=== PATIENT | female | born 1955 | race Caucasian/White ===

== ENCOUNTER → 2019-09-01 12:27 | Outpatient (CLI) | payer MEDICARE, SELFPAY ==
--- NOTE | ~2019-09-01 | XR_ITS ---
EXAMINATION: XR knee RT 3V DATE: 09/01/2019 12:59 INDICATION: Right knee pain. TECHNIQUE: 3 views of right knee were obtained. COMPARISON: Right knee radiographs 02/07/2014 FINDINGS: Bone alignment is normal. No fracture. There is mild tricompartmental osteoarthritis. No kn ee joint effusion. IMPRESSION: 1. Mild right knee osteoarthritis. Reviewed, dictated and finalized at location A. MACEUTICAL SPECIALTY REPRESENTATIVE
--- NOTE | ~2019-09-01 | XR_ITS ---
EXAMINATION: XR knee LT 3V DATE: 09/01/2019 12:59 INDICATION: Left knee pain. TECHNIQUE: 3 views of left knee were obtained. COMPARISON: None. FINDINGS: Bone alignment is normal. No fracture. There is mild tricompartmental osteoarthritis. There is a small knee joint effusion. IMPRESSION: 1. Mild left knee osteoarthritis. 2. Small left knee joint effusion. Reviewed, dictated and finalized at location A. NTRY OPERATIONS SPECIALIST
== END ==
PROVIDERS: PCP Family Medicine; Visit Provider Physician Assistant
DX: M17.0 Bilateral primary osteoarthritis of knee (principal); M25.462 Effusion, left knee
CPT/HCPCS: 73562

== ENCOUNTER → 2020-04-04 09:00 | Outpatient (CLI) | payer MEDICARE, SELFPAY ==
--- NOTE | ~2020-04-04 | MM_ITS ---
EXAMINATION: MM screening adria BI w cassy HISTORY: Screening mammogram TECHNIQUE: Craniocaudal and mediolateral oblique 3-D tomosynthesis images were obtained and synthetic 2-D images were generated. CAD analysis was submitted and interpreted. COMPARISON: No prior mammogram is available for comparison at this institution. BREAST PARENCHYMAL COMPOSITION: There are scattered areas of fibroglandular density. FINDINGS: There is no evidence of suspicious mass, calcification, or architectural distortion to sugg est malignancy in either breast. IMPRESSION: 1. No mammographic evidence of malignancy. 2. Recommend routine screening mammography in one year. BI-RADS Category 1: Negative Reviewed, dictated and finalized at location A.
--- NOTE | ~2020-04-04 | DEXA_ITS ---
Bone Density Report Name: Reena Mc Age: 64 Sex: Female Ethnicity: White Date of : 1955 Indication: postmenopausal; screening for osteoporosis; hysterectomy; Referring Provider: RADHA, ELLA Study: Bone densitometry was performed. Exam Date: April 04, 2020 Accession number: [id number] Bone Density: Region BMD T-score Z-score Classification AP Spine (L1-L4) 0.926 -1.1 0.5 Osteopenia Femoral Neck (Left) 0.735 -1.0 0.4 Normal Total Hip (Left) 0.943 0.0 1.1 Normal Femoral Neck (Right) 0.681 -1.5 -0.1 Osteopenia Total Hip (Right) 0.889 -0.4 0.6 Normal Total Hip Mean 0.916 -0.2 0.9 Normal World Health Organization criteria for BMD impression classify patients as: Normal (T-score at or above -1.0), Osteopenia (T-score between -1.0 and -2.5), or Osteoporosis (T-score at or below -2.5). 10-year Fracture Risk(1): Major Osteoporotic Fracture 8.4% Hip Fracture 0.8% Reported Risk Factors: [place] (), Neck BMD=0.681, BMI=28.4 (1) FRAX(R) Version 3.08. Fracture probability calculated for an untreated patient. Fracture probability may be lower if the patient has received treatment. Clinical Information Provided by Patient: Has the following medical conditions: Hysterectomy Patient maximum height was 66.5 Menopause Age: 44 No regular weight bearing exercise Does not regularly consume dairy products Drinks caffeinated beverages Onset of menses at age 14 Number of children 2 Impression: The patient has low bone mass, based on the Right Femoral Neck T-score. The patient has an estimated ten-year risk of hip fracture of 0.8% and an estimated ten-year risk of major fracture of 8.4%, based on the WHO FRAX algorithm. Discussion: BONE DENSITY IS LOW AT ONE OR MORE SKELETAL SITES. This patient's lowest T-score is low at one or more skeletal sites. It meets the World Health Organization's (WHO) criteria for ?low bone mass? (T-score between -1.0 and -2.5). The patient's 10-year risk of fracture as calculated by FRAX is less than the threshold where pharmacological therapy is recommended by the National Osteoporosis Foundation (NOF). However, all treatment decisions require clinical judgment and consideration of individual patient factors, including patient preferences, comorbidities, previous drug use, risk factors not captured in the FRAX model (e.g., frailty, falls, vitamin D deficiency, increased bone turnover, interval significant decline in bone density) and possible under or overestimation of fracture risk by FRAX. The patient should follow a healthful lifestyle (good nutrition with adequate calcium and vitamin D, and appropriate weight-bearing exercise). Follow-Up: Consider repeating this study in 2 to 3 years to reassess this patient's status, or sooner if there is some new
== END ==
PROVIDERS: PCP Family Medicine; Visit Provider Nurse Practitioner
DX: Z12.31 Encounter for screening mammogram for malignant neoplasm of breast (principal); Z78.0 Asymptomatic menopausal state; M85.89 Other specified disorders of bone density and structure, multiple sites
CPT/HCPCS: 77063; 77067; 77080

== ENCOUNTER 2020-10-30 13:33 | Outpatient (CLI) | payer MEDICARE, SELFPAY ==
--- NOTE | 2020-10-30 14:07 | ECHO_ITS ---
Patient Info Name: Reena Mc Age: 65 years : 1955 Gender: Female Ht: 66 in Wt: 180 lbs BSA: 1.97 m2 HR: 56 bpm BP: 149 / 87 mmHg Technical Quality: Good Exam Date: 10/30/2020 2:11 PM Exam Location: [facility] Patient Status: Outpatient Admit Date: 10/30/2020 Staff Ordering Physician: Layton Bush PA-C Dumbwaiter Operator: Adrien Gage RDCS, RT Attending Provider: Layton Bush PA-C Referring Physician: Rachelle FINE; Exam Type: CA echo doppler color flow Study Info Indications I48.0 - Paroxysmal atrial fibrillation Complete two-dimensional, color flow and Doppler transthoracic echocardiogram is performed. Strain analysis performed. Summary 1. Complete two-dimensional, color flow and Doppler transthoracic echocardiogram is performed. 2. Left ventricular chamber dimension is normal. 3. Left ventricular systolic function is normal, estimated at 60-65%. 4. The left ventricular diastolic function is normal. 5. E/e' 9 is minimally elevated. 6. Global longitudinal strain is normal at -17.7%. 7. Left atrial chamber dimension is mildly enlarged. 8. There is mild to moderate mitral valve regurgitation. 9. There is trace tricuspid valve regurgitation. 10. No pulmonary hypertension, estimated pulmonary arterial systolic pressure is 30 mmHg. 11. There is trace pulmonic regurgitation. Left Ventricle E/e' 9 is minimally elevated. Global longitudinal strain is normal at -17.7%. Left ventricular chamber dimension is normal. Left ventricular systolic function is normal, estimated at 60-65%. The left ventricular diastolic function is normal. Right Ventricle Right ventricular systolic function is normal based on normal TAPSE 2.2 cm. Right ventricular chamber dimension is not well visualized. Left Atria Left atrial chamber dimension is mildly enlarged. Right Atria Right atrial chamber dimension is normal. Aortic Valve The aortic valve is trileaflet. There is no aortic valve stenosis. There is no aortic valve regurgitation. Pulmonic Valve There is trace pulmonic regurgitation. Mitral Valve There is no mitral valve stenosis. There is mild to moderate mitral valve regurgitation. Tricuspid Valve There is trace tricuspid valve regurgitation. No pulmonary hypertension, estimated pulmonary arterial systolic pressure is 30 mmHg. Pericardium/Pleural There is no pericardial effusion. Inferior Vena Cava Normal inferior vena cava with >50% collapse upon inspiration consistent with normal right atrial pressure, 5 mmHg. Aorta The aortic root size at the sinus of Valsalva is normal. Left Ventricular Outflow Tract Name Value Normal LVOT 2D LVOT Diameter 2.1 cm LVOT Doppler LVOT Peak Gradient 1 mmHg LVOT Mean Gradient 1 mmHg LVOT VTI 15 cm LVOT VTI/AV VTI Ratio 0.7 LVOT Stroke Volume 54 ml LVOT CO 2.8 l/min LVOT CI 1.4 l/min/m2 Mitral Valve
== END 2020-10-30 13:34 | disposition home or self-care (01) ==
PROVIDERS: PCP Family Medicine; Visit Provider Physician Assistant
DX: I48.91 Unspecified atrial fibrillation (principal); I34.0 Nonrheumatic mitral (valve) insufficiency
CPT/HCPCS: 93306

== ENCOUNTER → 2021-04-07 09:57 | Outpatient (CLI) | payer MEDICARE, SELFPAY ==
--- NOTE | ~2021-04-07 | MM_ITS ---
EXAMINATION: MM screening adria BI w cassy HISTORY: Screening TECHNIQUE: Craniocaudal and mediolateral oblique 3-D tomosynthesis images were obtained and synthetic 2-D images were generated. CAD analysis was submitted and interpreted. COMPARISON: 04/04/2020 BREAST PARENCHYMAL COMPOSITION: There are scattered areas of fibroglandular density. FINDINGS: There is no evidence of suspicious mass, calcification, or architectural distortion to sugg est malignancy in either breast. There has been no suspicious interval change. IMPRESSION: 1. No mammographic evidence of malignancy. 2. Recommend routine screening mammography in one year. BI-RADS Category 1: Negative Reviewed, dictated and finalized at location A.
== END ==
PROVIDERS: PCP Family Medicine; Visit Provider Nurse Practitioner
DX: Z12.31 Encounter for screening mammogram for malignant neoplasm of breast (principal)
CPT/HCPCS: 77063; 77067

== ENCOUNTER 2022-02-12 10:58 | Observation (INO) | payer MEDICARE, SELFPAY ==
[2022-02-12] VITALS (23 sets, daily range): BP systolic 115–188; BP diastolic 42–111; PULSE 57–162; RESP 15–22; TEMP 36.4–36.8; O2SAT 94–99; BMI 30.8
--- NOTE | ~2022-02-12 | XR_ITS ---
EXAMINATION: XR chest 2V 02/12/2022 11:41 INDICATION: Chest pain PROCEDURE: 2 view chest COMPARISON: 02/07/2014 FINDINGS: The lungs are clear. The cardiomediastinal silhouette is within normal limits. There are no pleural effusions. There is no pneumothorax suspected. IMPRESSION: 1: NO ACUTE CARDIOPULMONARY DISEASE. Reviewed, dictated and finalized at location A.
--- NOTE | 2022-02-12 11:00 | ECG_ITS ---
Measurements Intervals [place] Rate: 143 P: ID: 0 QRS: 37 QRSD: 78 T: 32 QT: 267 QTc: 412 Interpretive Statements ATRIAL FIBRILLATION WITH RAPID VENTRICULAR RESPONSE NONSPECIFIC ST & T-WAVE ABNORMALITY ABNORMAL ECG NO PREVIOUS ECG AVAILABLE FOR COMPARISON Electronically Signed On 02-12-2022 15:21:37 CDT by Vignesh Quintanilla M.D.
[2022-02-12 11:27] LABS: Basophils Absolute Auto 0.1 K/mm3 (0.0-0.1); Basophils Percent Auto 0.8 % (0.2-1.2); Eosinophils Absolute Auto 0.2 K/mm3 (0-0.3); Eosinophils Percent Auto 2.3 % (0-4.4); Hematocrit 49.3 % (37.0-47.0); Hemoglobin 15.2 g/dL (12.0-15.0); Immature Granulocyte Absolute 0.03 K/mm3 (0.00-0.031); Immature Granulocyte Percent A 0.4 % (0-0.5); Lymphocytes Absolute Auto 1.96 K/mm3 (0.9-3.2); Lymphocytes Percent Auto 26.1 % (18.3-44.2); Mean Corpuscular HGB Conc 30.8 g/dl (32-36); Mean Corpuscular Hemoglobin 29.9 pg (26-34); Mean Corpuscular Volume 96.9 fl (80-100); Mean Platelet Volume 8.7 fl (7.4-10.4); Monocytes Absolute Auto 0.5 K/mm3 (0.1-0.6); Monocytes Percent Auto 7.1 % (2.6-8.5); Neutrophils Absolute Auto 4.8 K/mm3 (1.3-6.7); Neutrophils Percent Auto 63.3 % (45.5-73.1); Platelet Count Result 482 k/mm3 (150-375); Red Blood Count 5.09 M/mm3 (4.2-5.4); Red Cell Distribution Width 13.2 % (11.5-14.5); White Blood Count 7.5 K/mm3 (4.5-10.0)
--- NOTE | 2022-02-12 11:28 | ED.GENADULT ---
HPI - General Adult General Chief complaint: Arrhythmia/Palpitations Stated complaint: afib Time Seen by Provider: 02/12/22 11:12 Source: RN notes reviewed History of Present Illness HPI narrative: Patient presents emergency department from her PCPs office for atrial fibrillation. Patient states she gone to her PCP today for routine evaluation and was found to be in A. fib with RVR. States she does not feel like her heart is racing she denies any chest pain or shortness of breath. She states she has a history of intermittent atrial fibrillation is followed by Dr. Braxton but is not currently on any blood thinners. She denies any fevers or chills any other symptoms Related Data Home Medications Medication Instructions Recorded Confirmed aspirin 81 mg tablet,delayed 81 mg PO DAILY 09/01/19 02/12/22 release (Adult Low Dose Aspirin) Allergies Allergy/AdvReac Type Severity Reaction Status Date / Time duloxetine Allergy Unknown Unknown Verified 02/12/22 11:20 latex Allergy Unknown Skin Verified 02/12/22 11:20 Reaction nitrofurantoin Allergy Unknown Skin Verified 02/12/22 11:20 Reaction LATEX TAPE Allergy Unknown BROKE OUT Uncoded 02/12/22 11:20 WITH BLISTERS Review of Systems Review of Systems: Gen.: Denies fevers or chills ENT: Denies congestion Respiratory: Denies shortness of breath or cough CV: See HPI GI: Denies abdominal pain nausea, emesis or diarrhea Musculoskeletal: Denies back pain or muscle pain Neuro: Denies numbness, tingling, weakness or focal weakness Skin: Denies rash Except as documented, all other systems reviewed and negative [facility] Past Medical History Medical History (Updated 02/12/22 @ 12:16 by Gael Melara DO) Atrial fibrillation Family History Family History Mother Diabetes mellitus Hypertension Family history of elevated blood lipids Carcinoma of colon Colon polyp Father Diabetes mellitus Hypertension Family history of elevated blood lipids Social History Social History Smoking status: Never smoker Alcohol intake: never Substance use: never Exam Narrative: APPEARANCE: No acute distress, nontoxic, resting in bed EYES: EOMI HEENT: Normocephalic, atraumatic, OMM RESPIRATORY: No respiratory distress Clear to auscultation bilaterally with no rhonchi wheezing or rales. CARDIOVASCULAR: Irregular and tachycardic without murmurs rubs or gallops. ABDOMINAL: Soft, nontender, nondistended, no rebound or guarding MUSCULOSKELETAl: Moves all extremities. No clubbing, cyanosis or edema. NEURO: Awake and alert. Following commands, speech normal, no focal deficits SKIN:: Warm, dry. No rashes lesions or abrasions PSYCHIATRIC: Normal affect/mood, Course Course Emergency Course: Discussed with AGUILA Fu for Dr. Braxton agrees with consult agrees with plan for dose of Lovenox Discussed with Dr. Hood agrees with admission Discussed with patient and family results of workup and diagnosis. Discussed need for admission. Patient and family understand and agree to current treatment plan Vital Signs Vital signs: Vital Signs Temperature 97.5 F L 02/12/22 11:07 Pulse Rate 148 H 02/12/22 11:07 Respiratory Rate 22 H 02/12/22 11:07 Blood Pressure 155/111 H 02/12/22 11:07 Pulse Oximetry 99 02/12/22 11:07 Oxygen Delivery Room Air 02/12/22 11:07 Temperature 97.5 F L 02/12/22 11:07 Pulse Rate 162 H 02/12/22 11:58 Respiratory Rate 22 H 02/12/22 11:07 Blood Pressure 188/84 H 02/12/22 11:46 Pulse Oximetry 99 02/12/22 11:07 Oxygen Delivery Room Air 02/12/22 11:07 Medical Decision Making Vital Signs Vital Signs: Vital Signs Temperature 97.5 F L 02/12/22 11:07 Pulse Rate 148 H 02/12/22 11:07 Respiratory Rate 22 H 02/12/22 11:07 Blood Pressure 155/111 H 02/12/22 11:07 Pulse Oximetr
[2022-02-12 11:37] LABS: Prothrombin Time 12.3 Seconds (11.1-14.7)
[2022-02-12 11:38] LABS: Alanine Aminotransferase 22 U/L (6-35); Albumin Level 4.8 g/dL (3.5-5.1); Alkaline Phosphatase 114 U/L (38-126); Anion Gap 15 mmol/L (8-16); Aspartate Amino Transferase 34 U/L (14-36); Bilirubin,Total 0.7 mg/dL (0.2-1.3); Blood Urea Nitrogen 16 mg/dL (7-17); Calcium 9.9 mg/dL (8.4-10.2); Carbon Dioxide 23 mmol/L (22-30); Chloride 102 mmol/L (98-107); Estimated CRCL calculation 46 ml/min; Estimated Glomerular Filt Rate 45; Glucose 110 mg/dL (65-110); Lipase 123 U/L (23-300); Partial Thromboplastin Time 33.5 SECONDS (22.3-36.8); Potassium 4.3 mmol/L (3.4-5.0); Sodium 140 mmol/L (137-145)
[2022-02-12] MEDS: dilTIAZem 100 MG/100 ML 100 MG/100 ML BAG IV CONT (11:46)
[2022-02-12 11:49] LABS: Troponin I < 0.012 ng/mL (0.000-0.034)
--- NOTE | 2022-02-12 11:58 | PC.NURSE ---
Diltiazem titrated to 7.5mg/hr
[2022-02-12] MEDS: ENOXAPARIN 80 MG/0.8 ML SYRINGE SUB-Q (12:39)
--- NOTE | 2022-02-12 13:27 | PM.CNCAR ---
Assessment and Plan Assessment and plan (1) Atrial fibrillation with rapid ventricular response: Code(s): I48.91 - Unspecified atrial fibrillation <ROCKY Orellana - Last Filed: 02/12/22 15:09> Status: Acute <ROCKY Orellana - Last Filed: 02/12/22 15:09> Assessment and Plan: History paroxysmal atrial fibrillation diagnosed in 2019. Previously controlled with low-dose metoprolol. She was found to be in atrial fibrillation with rapid ventricular response this morning at a routine checkup visit with her primary care doctor. She had not been experiencing any overt symptoms until this morning when she felt some palpitations and was dizzy. However, does endorse increased fatigue over the past several months. Possible that she has been in atrial fibrillation for quite some time. She was placed a diltiazem drip in the emergency department. Currently not adequately rate controlled Will increase metoprolol to 25 mg q.8 hours in hopes of achieving rate control with this in being able to wean off of the diltiazem. CHADS2 Vasc score is 1 (female gender), systemic anticoagulation is not indicated at this time. She understands that as time goes on and additional risk factors are required (after she turned 67), systemic anticoagulation will be indicated. Can consider ASA. If unable to achieve adequate rate control can pursue LOULOU cardioversion Check TSH She is not compliant with her CPAP, encouraged better compliance with this. She had a stress echocardiogram in August of this year that showed a hyperdynamic LV, no segmental wall motion abnormalities, stress echo negative for inducible ischemia. Continue to monitor on telemetry <ROCKY Orellana - Last Filed: 02/12/22 15:09> (2) Mixed hyperlipidemia: Code(s): E78.2 - Mixed hyperlipidemia <ROCKY Orelalna - Last Filed: 02/12/22 15:09> Status: Acute <ROCKY Orellana - Last Filed: 02/12/22 15:09> Assessment and Plan: Continue statin. <ROCKY Orellana - Last Filed: 02/12/22 15:09> Additional Plan Attending Addendum: I have personally seen and examined this patient at bedside. I agree with the above documentation and plan of care as outlined. -patient is a very pleasant 66-year-old female with a past medical history significant for paroxysmal atrial fibrillation followed by Dr. Braxton as an outpatient maintain on aspirin and Toprol XL a noted this morning she was not feeling well felt lightheaded dizzy and with palpitations and presented to her PCP for routine scheduled visit. She was found to be in AFib with RVR for which she was referred to the emergency department. She was noted to quite rapid with heart rate up to the 160s and was started on diltiazem infusion. Her heart rate was better controlled but remained elevated and then converted to sinus rhythm around 330pm this afternoon. She feels much better and has no specific complaints at this time. She is currently sinus bradycardia and has been given oral metoprolol 25 mg. She denies recent illnesses, fevers or chills. No chest pain. She currently denies shortness of breath. No history of syncope. She is intolerant to CPAP for treatment of SEBAS unfortunately. She claims compliance with medications. She admits she has been under a great deal of stress but denies recent illnesses. Exam: Very pleasant female NAD, A&Ox3, nonfocal neuro exam No JVD Lungs CTA bilaterally Cardio bradycardic RRR, S1/S2 Abd soft, NT/ND, +BS Ext no edema, clubbing, or cyanosis Impression: Paroxysmal atrial fibrillation with rapid ventricular response SEBAS intolerant to CPAP unfortunately. Discussed increased likelihood of AFib recurrence with untreated SEBAS. CKD stage 3 stable, at baseline Mixed hyperlipidemia-continue atorvastatin 40 mg at bedtime GERD-continue PPI Plan of Care: Discontinue diltiazem infusion. Monitor heart rate on telemetry overnight to e
[2022-02-12 13:38] LABS: SARS-CoV-2 RNA PCR Negative
--- NOTE | 2022-02-12 14:43 | ADMGEN ---
This patient, Reena Mc, was admitted to IMU Room 212-01. Patient/family oriented to hospital policies and general routines including ID bracelet, bed and alarms, visiting hours, pain management, procedures, bathroom and other care routines, personal items, smoking policy, room service/diet, and visiting hours. Information on how to activate the Rapid Response Team has been discussed. Patient/Family are encouraged to report perceived risks to care and to ask questions if they do not understand what they are told or what they should do.
[2022-02-12] MEDS: METOPROLOL TARTRATE 25 MG TABLET PO ×2 (15:21→23:05)
--- NOTE | 2022-02-12 15:41 | ECG_ITS ---
Measurements Intervals [place] Rate: 57 P: 2 UT: 195 QRS: 22 QRSD: 88 T: 15 QT: 448 QTc: 439 Interpretive Statements SINUS BRADYCARDIA ST DEVIATION AND MODERATE T-WAVE ABNORMALITY, CONSIDER ANTERIOR ISCHEMIA ABNORMAL ECG COMPARED TO ECG 02/12/2022 11:02:32 SINUS BRADYCARDIA NOW PRESENT Electronically Signed On 02-12-2022 16:29:56 CDT by Vignesh Quintanilla M.D.
[2022-02-12 17:53] LABS: Troponin I < 0.012 ng/mL (0.000-0.034)
--- NOTE | 2022-02-12 18:45 | PM.IMHP ---
H&P: HPI History of Present Illness Date/Time: 02/12/22 18:45 Chief Complaint: 66-year-old female with past medical history significant for depression, anxiety, hypertension, as well as atrial fibrillation was being seen at her PCPs office and she was noted to be in AFib with RVR and referred to the ER. The patient was completely asymptomatic. She denied chest pain, shortness a breath, palpitations, nausea, vomiting or diarrhea. No fevers or chills. She states she was previously diagnosed with paroxysmal atrial fibrillation and sees Dr. Braxton from cardiology but has not been placed on blood thinners in the past. Patient states that she does have episodes intermittently where she feels very lightheaded and short of breath but the symptoms appeared to resolve when she rests. She has not experienced any of those episodes today. Yesterday, she had an episode where she felt extremely fatigued when she was trying to walk to the bathroom and felt like her heart was racing and she felt a bit short of breath but no chest pain. Symptoms resolved relatively quickly after she rested. In the ER, Cardiology was consulted and recommended therapeutic Lovenox dosing for anticoagulation. she is currently taking metoprolol, aspirin and Lipitor for her heart. She is also on Zoloft and amitriptyline for depression anxiety as well as tramadol for chronic pain and omeprazole for GERD. She was placed on a Cardizem drip in the ER. Cardiology consultation completed at this time, stated patient is not a candidate for systemic anticoagulation due to a chads Vasc score of 1. At this time, they recommend aspirin alone. They recommended compliance with her CPAP, checking a TSH and a possible LOULOU with cardioversion if patient continues to be unable to achieve rate control. They also discontinued the Cardizem drip In favor of increasing her home metoprolol dosing. The anticipate she can be discharged home tomorrow if the increased dose of metoprolol controls her symptoms back to baseline at which point she can follow-up with Dr. Braxton outpatient. She would be a candidate for systemic anticoagulation in about 6 months when she reaches her 67th birthday. Review of Systems Review of Systems: 12 point review of systems was assessed and was negative except as noted in the [facility] Past Medical History Medical History Atrial fibrillation Family History Family History Mother Diabetes mellitus Hypertension Family history of elevated blood lipids Carcinoma of colon Colon polyp Father Diabetes mellitus Hypertension Family history of elevated blood lipids Social History Social History Smoking status: Never smoker Alcohol intake: never Substance use: never Spiritual care concerns: No Meds Home Medications and Allergies Home Medications Medication Instructions Recorded Confirmed Type aspirin 81 mg tablet,delayed 81 mg PO HS 09/01/19 02/12/22 History release (Adult Low Dose Aspirin) tramadol 50 mg tablet 50 mg PO Q6H PRN pain #60 tabs 09/26/19 02/12/22 Rx amitriptyline 10 mg tablet 10 mg PO HS 02/12/22 02/12/22 History atorvastatin 40 mg tablet 40 mg PO HS 02/12/22 02/12/22 History ergocalciferol (vitamin D2) 1,250 1,250 mcg PO DIRECTED 02/12/22 02/12/22 History mcg (50,000 unit) capsule metoprolol succinate 25 mg 12.5 mg PO HS 02/12/22 02/12/22 History tablet,extended release 24 hr omeprazole 20 mg capsule,delayed 20 mg PO DAILY 02/12/22 02/12/22 History release sertraline 100 mg tablet 100 mg PO HS 02/12/22 02/12/22 History Allergies Allergy/AdvReac Type Severity Reaction Status Date / Time duloxetine Allergy Unknown Unknown Verified 02/12/22 15:07 latex Allergy Unknown Skin Verified 02/12/22 15:07 Reaction nitrofurantoin A
[2022-02-12 20:51] LABS: Troponin I < 0.012 ng/mL (0.000-0.034)
[2022-02-13] VITALS: PULSE 55
[2022-02-13 02:00] VITALS: PULSE 55
[2022-02-13 04:00] VITALS: BP 106/55; PULSE 50; PULSE 65; RESP 22; TEMP 36.7; O2SAT 95
[2022-02-13 06:00] VITALS: PULSE 57
[2022-02-13 06:03] VITALS: PULSE 54
[2022-02-13] MEDS: METOPROLOL TARTRATE 25 MG TABLET PO (06:03)
[2022-02-13 08:00] VITALS: BP 116/69; PULSE 100; RESP 14; TEMP 36.6; O2SAT 100
--- NOTE | 2022-02-13 10:42 | PM.PNCARD ---
Progress Note: A&P Assessment and Plan (1) Atrial fibrillation with rapid ventricular response: Code(s): I48.91 - Unspecified atrial fibrillation Status: Acute Assessment and Plan: History paroxysmal atrial fibrillation diagnosed in 2019. Previously controlled with low-dose metoprolol. She was found to be in atrial fibrillation with rapid ventricular response this morning at a routine checkup visit with her primary care doctor. She had not been experiencing any overt symptoms until this morning when she felt some palpitations and was dizzy. However, does endorse increased fatigue over the past several months. Possible that she has been in atrial fibrillation for quite some time. Converted to NSR yesterday afternoon Remains in NSR/sinus quinton this morning. Plan to discharge home on 25mg Toprol XL CHADS2 Vasc score is 1 (female gender), systemic anticoagulation is not indicated at this time. She understands that as time goes on and additional risk factors are required (after she turned 67), systemic anticoagulation will be indicated. On 81mg ASA She is not compliant with her CPAP, encouraged better compliance with this. She had a stress echocardiogram in August of this year that showed a hyperdynamic LV, no segmental wall motion abnormalities, stress echo negative for inducible ischemia. She has follow up with Dr. Braxton next week, she should keep this appointment. (2) Mixed hyperlipidemia: Code(s): E78.2 - Mixed hyperlipidemia Status: Acute Assessment and Plan: Continue statin. Subjective Date/time seen: 02/13/22 08:42 Cardiology follow up for Afib Feels good this morning. In sinus rhythm/sinus quinton on the monitor. Did have one brief run of AF overnight. She is without complaint this morning. Wants to go home. Review of Systems Constitutional: Constitutional: Denies chills, Denies fever(s), Denies headache(s) and Denies malaise Eyes: Eyes: Denies change in vision ENT: Reports Normal hearing present, Denies dizziness, Denies headache(s) and Denies hearing loss Cardiovascular: Cardiovascular: Denies chest pain, Denies chest pain at rest, Denies chest pain with activity, Denies syncope, Reports pedal edema, Denies palpitations, Denies dyspnea and Denies dyspnea on exertion Respiratory: Respiratory: Denies cough, Denies dyspnea, Denies dyspnea on exertion and Denies wheezing Gastrointestinal: Gastrointestinal: Denies abdominal pain, Denies constipation and Reports diarrhea Genitourinary: Genitourinary: Denies hematuria and Denies dysuria Musculoskeletal: Musculoskeletal: Denies myalgias, Denies arthralgias and Denies muscle cramps Integumentary/Breasts: Skin/Breast: Denies wounds Neurologic: Reports Normal hearing present, Denies confusion, Denies dizziness, Denies syncope and Denies headache(s) Psychiatric: Psychiatric: Denies anxiety, Denies confusion and Reports depression Endocrine: Endocrine: Denies cold intolerance, Denies flushing, Denies heat intolerance and Denies palpitations Hematologic/Lymphatic: Hematologic/Lymphatic: Denies easy bleeding and Denies easy bruising Allergic/Immunologic: Allergic/Immunologic: Denies wheezing Exam Const: General: comfortable, no acute distress, alert and awake; No confusion Orientation/consciousness: patient oriented x3 and No confusion HENMT: Head: normal to inspection Eyes: General: appearance normal, both eyes and all related structures Pupils: Equal, round and reactive pupils present Neck: Neck: normal visual inspection, supple and no JVD Carotids: normal carotid upstroke Resp: Effort & Inspection: normal respiratory effort Auscultation: clear to auscultation bilaterally Cardio: Rate: regular rate and bradycardic Rhythm: regular rhythm Heart sounds: S1 normal heart sound present, S2 normal heart sound present and no murmurs GI: Auscultation: normal bowel sounds Skin: General skin exam: normal color Neuro:
--- NOTE | 2022-02-17 19:18 | PM.DS ---
DS: Admitting Diagnosis Discharge Date 02/13/22 Admitting Diagnosis AFib with RVR DS: Discharge Diagnosis Discharge Diagnosis (1) Atrial fibrillation with rapid ventricular response: Code(s): I48.91 - Unspecified atrial fibrillation Status: Acute Assessment and Plan: continue aspirin, statin, metoprolol at higher dose, reassess tomorrow per Cardiology recommendations (2) Mixed hyperlipidemia: Code(s): E78.2 - Mixed hyperlipidemia Status: Acute Assessment and Plan: Continue statin. (3) Gastro-esophageal reflux disease without esophagitis: Code(s): K21.9 - Gastro-esophageal reflux disease without esophagitis Status: Acute Assessment and Plan: continue PPI (4) Irritable bowel syndrome with diarrhea: Code(s): K58.0 - Irritable bowel syndrome with diarrhea Status: Acute Assessment and Plan: stable (5) Major depressive disorder, recurrent, moderate: Code(s): F33.1 - Major depressive disorder, recurrent, moderate Status: Acute Assessment and Plan: continue Zoloft (6) Obstructive sleep apnea: Code(s): G47.33 - Obstructive sleep apnea (adult) (pediatric) Status: Acute Assessment and Plan: noncompliant with CPAP at home, recommended compliance to prevent further episodes of AFib Plan Full Code DVT prophylaxis with Lovenox DS: Summary Hospital Course Hospital Course: 66-year-old female with past medical history significant for? depression, anxiety, hypertension, as well as atrial fibrillation was being seen at her PCPs office and she was noted to be in AFib with RVR and referred to the ER.? The patient was completely asymptomatic.? She denied chest pain, shortness a breath, palpitations, nausea, vomiting or diarrhea.? No fevers or chills.? She states she was previously diagnosed with paroxysmal atrial fibrillation and sees Dr. Braxton from cardiology but has not been placed on blood thinners in the past.? Patient states that she does have episodes intermittently where she feels very lightheaded and short of breath but the symptoms appeared to resolve when she rests.? She has not experienced any of those episodes today.? Yesterday, she had an episode where she felt extremely fatigued when she was trying to walk to the bathroom and felt like her heart was racing and she felt a bit short of breath but no chest pain.? Symptoms resolved relatively quickly after she rested. In the ER, Cardiology was consulted and recommended therapeutic Lovenox dosing for anticoagulation.? she is currently taking metoprolol, aspirin and Lipitor for her heart.? She is also on Zoloft and amitriptyline for depression anxiety as well as tramadol for chronic pain and omeprazole for GERD. She was placed on a Cardizem drip in the ER.? Cardiology consultation completed at this time, stated patient is not a candidate for systemic anticoagulation due to a chads Vasc score of 1.? At this time, they recommend aspirin alone.? They recommended compliance with her CPAP, checking a TSH and a possible LOULOU with cardioversion if patient continues to be unable to achieve rate control. ? They also discontinued the Cardizem drip ? In favor of increasing her home metoprolol dosing.? The anticipate she can be discharged home tomorrow if the increased dose of metoprolol controls her symptoms back to baseline at which point she can follow-up with Dr. Braxton outpatient.? She would be a candidate for systemic anticoagulation in about 6 months when she reaches her 67th birthday. Patient converted to normal sinus rhythm and remained this way. Therefore she was discharged home on Toprol-XL 25 mg with close outpatient follow-up by Cardiology. Time Spent with Patient Time attestation: Total time spent providing and/or coordinating discharge services: Exam Narrative: General: No acute distress, alert and oriented per baseline HEENT: Atraumatic, normocephalic, mucous
== END 2022-02-13 12:47 | disposition home or self-care (01) ==
LOC: ANHED 12:16 → ANHIMU 02-13 10:44
PROVIDERS: Nurse Practitioner; Admitting Provider Family Medicine; Emergency Provider Emergency Medicine; PCP Family Medicine; Visit Provider Student in an Organized Health Care Education/Training Program
DX: I48.0 Paroxysmal atrial fibrillation (principal); N28.9 Disorder of kidney and ureter, unspecified; Z79.891 Long term (current) use of opiate analgesic; E78.2 Mixed hyperlipidemia; K21.9 Gastro-esophageal reflux disease without esophagitis; K58.0 Irritable bowel syndrome with diarrhea; F33.1 Major depressive disorder, recurrent, moderate; Z99.89 Dependence on other enabling machines and devices; Z91.19 Patient's noncompliance with other medical treatment and regimen; F41.9 Anxiety disorder, unspecified; I13.10 Hypertensive heart and chronic kidney disease without heart failure, with stage 1 through stage 4 chronic kidney disease, or unspecified chronic kidney disease; N18.30 Chronic kidney disease, stage 3 unspecified; R94.31 Abnormal electrocardiogram [ECG] [EKG]; Z20.822 Contact with and (suspected) exposure to COVID-19; Z82.49 Family history of ischemic heart disease and other diseases of the circulatory system; Z79.82 Long term (current) use of aspirin; Z79.899 Other long term (current) drug therapy
CPT/HCPCS: 36415; 71046; 80053; 83690; 84443; 84484; 85025; 85610; 85730; 93005; 96372; 96374; 99285; A9270; C9803; G0378; J1650; U0003; U0005

== ENCOUNTER 2022-03-13 11:43 | Inpatient (IN) | payer MEDICARE, SELFPAY ==
[2022-03-13] VITALS (56 sets, daily range): BP systolic 92–128; BP diastolic 60–90; PULSE 45–148; RESP 12–24; TEMP 36.6–36.9; O2SAT 89–98; BMI 31.8
--- NOTE | ~2022-03-13 | CT_ITS ---
EXAMINATION: CT brain wo con DATE: 03/13/2022 13:01 INDICATION: Fall. Head injury, loss of consciousness. Patient on anticoagulant therapy. TECHNIQUE: Computed tomography (CT) of the head was performed without intravenous contrast. The mA wa s adjusted according to patient size. Iterative reconstruction technique was employed. Exam dose: 60 5.33 mGy-cm total exam DLP. COMPARISON: 12/29/2017 CT brain FINDINGS: No intracranial mass lesion or hemorrhage or cerebrovascular accident is detected. No midli ne shift or mass effect. Bilateral carotid siphon internal carotid artery calcifications. No subdural or epidural hematoma. No fracture or bone destruction of the cranial vault. The mastoid air cells and included paranasal si nuses are well aerated. IMPRESSION: Cerebral atherosclerosis No acute intracranial finding or skull fracture Reviewed, dictated and finalized at [facility]. Reviewed, dictated and finalized at [facility].
--- NOTE | ~2022-03-13 | XR_ITS ---
XR chest 2V DATE: 03/13/2022 13:06 INDICATION: Atrial fibrillation with rapid ventricular response TECHNIQUE: AP and lateral views COMPARISON: 02/12/2022 PA and lateral chest FINDINGS: Normal heart size. No hilar or mediastinal enlargement. No pulmonary infiltrate or consolid ation, pleural effusion or pulmonary vascular congestion or pneumothorax. Levoscoliosis and degenerative spurring of the thoracic spine. IMPRESSION: No active cardiopulmonary disease Reviewed, dictated and finalized at location [facility].
--- NOTE | 2022-03-13 11:50 | ECG_ITS ---
Measurements Intervals [place] Rate: 129 P: VT: 0 QRS: 37 QRSD: 86 T: -4 QT: 333 QTc: 488 Interpretive Statements ATRIAL FIBRILLATION WITH RAPID VENTRICULAR RESPONSE ST-T WAVE ABNORMALITY IN SEPTAL LEADS- CONSIDER ISCHEMIA ABNORMAL ECG COMPARED TO ECG 02/12/2022 15:49:50 ATRIAL FIBRILLATION NOW PRESENT Electronically Signed On 03-13-2022 11:59:27 CDT by Davide Moura D.O.
[2022-03-13 12:35] LABS: Basophils Absolute Auto 0.1 K/mm3 (0.0-0.1); Basophils Percent Auto 0.8 % (0.2-1.2); Eosinophils Absolute Auto 0.2 K/mm3 (0-0.3); Eosinophils Percent Auto 3.2 % (0-4.4); Hematocrit 41.8 % (37.0-47.0); Hemoglobin 13.4 g/dL (12.0-15.0); Immature Granulocyte Absolute 0.02 K/mm3 (0.00-0.031); Immature Granulocyte Percent A 0.3 % (0-0.5); Lymphocytes Absolute Auto 1.61 K/mm3 (0.9-3.2); Lymphocytes Percent Auto 26.7 % (18.3-44.2); Mean Corpuscular HGB Conc 32.1 g/dl (32-36); Mean Corpuscular Hemoglobin 30.5 pg (26-34); Mean Platelet Volume 8.8 fl (7.4-10.4); Monocytes Absolute Auto 0.5 K/mm3 (0.1-0.6); Monocytes Percent Auto 8.6 % (2.6-8.5); Neutrophils Absolute Auto 3.6 K/mm3 (1.3-6.7); Neutrophils Percent Auto 60.4 % (45.5-73.1); Platelet Count Result 380 k/mm3 (150-375); Red Cell Distribution Width 13.2 % (11.5-14.5)
[2022-03-13] MEDS: dilTIAZem HCl INJ 25 MG/5 ML VIAL 10 MG IV PUSH ×2 (12:35→14:23)
--- NOTE | 2022-03-13 12:36 | ED.DIZZY ---
HPI - Dizziness General Chief Complaint: Syncope <STEPHANIE Lira Last Filed: 03/17/22 09:00> Stated Complaint: syncopal episode, hit head <STEPHANIE Lira Last Filed: 03/17/22 09:00> Time Seen by Provider: 03/13/22 12:20 <STEPHANIE Lira Last Filed: 03/17/22 09:00> History of Present Illness HPI Narrative: Patient is a 66-year-old female here for evaluation of dizziness. Patient states that the dizziness is intermittent in nature,, states she turns her head. She had a dizzy spell in her kitchen earlier today that she believes led her to fall and hit her head against the ground. She had a period of unconsciousness for about a minute, but then she came to. She is on Eliquis for atrial fibrillation. She denies any chest pain, shortness of breath, fevers or chills, nausea, vomiting, abdominal pain. Of note, patient has been in atrial fibrillation with rapid ventricular response frequently, she was admitted to the hospital last month on a diltiazem drip, started on Eliquis at that time. <STEPHANIE Lira Last Filed: 03/17/22 09:00> Related Data Home Medications: Home Medications Medication Instructions Recorded Confirmed aspirin 81 mg tablet,delayed 81 mg PO HS 09/01/19 03/18/22 release (Adult Low Dose Aspirin) amitriptyline 10 mg tablet 10 mg PO HS 02/12/22 03/18/22 atorvastatin 40 mg tablet 40 mg PO HS 02/12/22 03/18/22 ergocalciferol (vitamin D2) 1,250 1,250 mcg PO DIRECTED 02/12/22 03/18/22 mcg (50,000 unit) capsule omeprazole 20 mg capsule,delayed 20 mg PO DAILY 02/12/22 03/18/22 release sertraline 100 mg tablet 100 mg PO HS 02/12/22 03/18/22 apixaban 5 mg tablet (Eliquis) 5 mg PO Q12H 03/13/22 03/18/22 <STEPHANIE Lira Last Filed: 03/17/22 09:00> Allergies/Adverse Reactions: Allergies Allergy/AdvReac Type Severity Reaction Status Date / Time duloxetine Allergy Unknown Unknown Verified 03/18/22 09:53 latex Allergy Unknown Skin Verified 03/18/22 09:53 Reaction nitrofurantoin Allergy Unknown Skin Verified 03/18/22 09:53 Reaction LATEX TAPE Allergy Unknown BROKE OUT Uncoded 03/18/22 09:53 WITH BLISTERS <Glo Pryor PA-C - Last Filed: 03/17/22 09:00> Review of Systems Review of Systems: Gen: Denies fevers or chills Eyes: Denies eye pain or visual change ENT: Denies congestion Respiratory: Denies shortness of breath or cough CV: Denies chest pain or palpitations GI: Denies abdominal pain nausea, emesis or diarrhea : denies burning, urgency, frequency or hematuria Musculoskeletal: Denies back pain or muscle pain Neuro: Reports dizziness. Denies numbness, tingling, weakness or focal weakness Skin: Denies rash Except as documented, all other systems reviewed and negative <Glo Pryor PA-C - Last Filed: 03/17/22 09:00> [facility] Past Medical History Medical History: Medical History Adjustment disorder with anxiety Atrial fibrillation Chronic bilateral low back pain without sciatica DVT of leg (deep venous thrombosis) Gastro-esophageal reflux disease without esophagitis Hyperlipidemia LDL goal <130 Major depressive disorder, recurrent, moderate <Glo Pryor PA-C - Last Filed: 03/17/22 09:00> Surgical History Surgical History: Surgical History H/O: hysterectomy History of back surgery History of bladder surgery <STEPHANIE Lira Last Filed: 03/17/22 09:00> Family History Family History: Family History Mother Diabetes mellitus Hypertension Family history of elevated blood lipids Carcinoma of colon Colon polyp Father Diabetes mellitus Hypertension Family history of elevated blood lipids <CHRISTIANO Lira-
[2022-03-13 12:47] LABS: Alanine Aminotransferase 16 U/L (6-35); Albumin Level 4.1 g/dL (3.5-5.1); Alkaline Phosphatase 91 U/L (38-126); Anion Gap 12 mmol/L (8-16); Aspartate Amino Transferase 31 U/L (14-36); Bilirubin,Total 0.5 mg/dL (0.2-1.3); Blood Urea Nitrogen 20 mg/dL (7-17); Calcium 9.1 mg/dL (8.4-10.2); Carbon Dioxide 29 mmol/L (22-30); Chloride 102 mmol/L (98-107); Estimated CRCL calculation 46 ml/min; Estimated Glomerular Filt Rate 45; Glucose 88 mg/dL (65-110); Potassium 4.8 mmol/L (3.4-5.0); Sodium 143 mmol/L (137-145)
[2022-03-13 13:02] LABS: INR 1.3; Prothrombin Time 16.1 Seconds (11.1-14.7)
[2022-03-13 13:03] LABS: Partial Thromboplastin Time 47.1 SECONDS (22.3-36.8)
[2022-03-13 13:35] LABS: Troponin I < 0.012 ng/mL (0.000-0.034)
[2022-03-13] MEDS: METOPROLOL TARTRATE 50 MG TAB PO (15:30)
--- NOTE | 2022-03-13 15:39 | PM.IMHP ---
H&P: HPI History of Present Illness Date/Time: 03/13/22 15:39 Chief Complaint: Syncopal event with loss of consciousness Narrative: this is a 66-year-old female patient who has a history of atrial fibrillation. The patient came to the emergency room to be evaluated for syncopal event. The patient stated that she was in the kitchen reaching for the refrigerator when her ask your what was wrong and if she felt all right. The the stated that her eyes rolled in the back of her head she fell backwards hitting her head her eyes were open but she was not responsive for approximately 30 seconds. She is currently on Eliquis for the atrial fibrillation. She has been on metoprolol. the patient stated that she has been taking her medications as prescribed. the patient was found to be in AFib with RVR today. The patient was given IV Cardizem and then p.o. metoprolol . It was reported that the patient had been on sotalol but her heart rate got too low and then was taken to lower dose of sotalol. Head CT was read as cerebral atherosclerosis no acute intracranial finding or skull fracture. Chest x-ray was read as no acute cardiopulmonary disease. Creatinine is 1.2 which is her baseline. Cardiology has been consulted. The patient is being admitted to inpatient status on 03/13/2022. ( The patient was just discharged from here on 02/17/2022 After being on a Cardizem drip). Review of Systems Review of Systems: see HPI All systems reviewed & are unremarkable except as noted in HPI and below Constitutional: Constitutional: Reports as per HPI and Reports no additional constitutional complaints Eyes: Eyes: Reports as per HPI and Reports no additional eye complaints ENT: Reports system reviewed and no additional complaints, except as documented and Reports Normal hearing present Cardiovascular: Cardiovascular: Reports no additional cardiovascular complaints Respiratory: Respiratory: Reports no additional respiratory complaints and Reports no additional respiratory complaints Gastrointestinal: Gastrointestinal: Reports as per HPI and Reports no additional gastrointestinal complaints Musculoskeletal: Musculoskeletal: Reports no additional musculoskeletal complaints Integumentary/Breasts: Skin/Breast: Reports system reviewed and no additional complaints, except as docu and Reports as per HPI Neurologic: Reports system reviewed and no additional complaints, except as documented, Reports as per HPI and Reports Normal hearing present Psychiatric: Psychiatric: Reports no additional psychiatric complaints and Reports as per HPI Endocrine: Endocrine: Reports no additional endocrine complaints Hematologic/Lymphatic: Hematologic/Lymphatic: Reports no additional hematologic/lymphatic complaints Allergic/Immunologic: Allergic/Immunologic: Reports no additional allergic/immunologic complaints [facility] Past Medical History Medical History Adjustment disorder with anxiety Atrial fibrillation Chronic bilateral low back pain without sciatica DVT of leg (deep venous thrombosis) Gastro-esophageal reflux disease without esophagitis Hyperlipidemia LDL goal <130 Major depressive disorder, recurrent, moderate Surgical History Surgical History H/O: hysterectomy History of back surgery History of bladder surgery Family History Family History Mother Diabetes mellitus Hypertension Family history of elevated blood lipids Carcinoma of colon Colon polyp Father Diabetes mellitus Hypertension Family history of elevated blood lipids Social History Social History (Updated 03/13/22 @ 16:52 by Maria Del Rosario Santos NP) Social History: 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 She never sm
--- NOTE | 2022-03-13 16:16 | PC.NURSE ---
Pharmacy contacted for Cheryle dempsey. Not currently stocked in [facility].
[2022-03-13] MEDS: dilTIAZem 100 MG/100 ML 100 MG/100 ML BAG IV CONT (16:41)
--- NOTE | 2022-03-13 16:57 | PC.NURSE ---
Per verbal order from CHRISTIANO Cody Cardizem increased to 15 mg/hr.
--- NOTE | 2022-03-13 18:10 | ADMGEN ---
This patient, Reena Mc, was admitted to IMU Room 201-01 at 1804 on 03/13/2022. Patient/family oriented to hospital policies and general routines including ID bracelet, bed and alarms, visiting hours, pain management, procedures, bathroom and other care routines, personal items, smoking policy, room service/diet, and visiting hours. Information on how to activate the Rapid Response Team has been discussed. Patient/Family are encouraged to report perceived risks to care and to ask questions if they do not understand what they are told or what they should do.
--- NOTE | 2022-03-13 18:49 | PC.NURSE ---
Patient's heart rate dropped to 45bpm. Diltiazem gtt paused. Maria Del Rosario Santos NP notified via voicemail of medication being paused. Will wait for new orders and continue to monitor the patient.
[2022-03-13] MEDS: SODIUM CHLORIDE 0.9% IV 1,000 ML 999 ML IV CONT (19:05)
[2022-03-13] MEDS: SERTRALINE HCL 50 MG TABLET 100 MG PO (20:11)
[2022-03-13] MEDS: APIXABAN 5 MG TABLET PO (20:11)
[2022-03-13] MEDS: ATORVASTATIN 40 MG TABLET PO (20:12)
[2022-03-13] MEDS: ASPIRIN 81 MG ENTERIC TABLET PO (20:12)
[2022-03-13] MEDS: AMITRIPTYLINE HCL 10 MG TABLET PO (20:13)
[2022-03-14] VITALS (22 sets, daily range): BP systolic 100–113; BP diastolic 56–58; PULSE 52–96; RESP 14–20; TEMP 36.1–36.7; O2SAT 96–98
--- NOTE | 2022-03-14 03:26 | ECG_ITS ---
Measurements Intervals [place] Rate: 63 P: 18 HI: 230 QRS: 38 QRSD: 86 T: 24 QT: 474 QTc: 489 Interpretive Statements SINUS RHYTHM WITH FIRST DEGREE AV BLOCK INCOMPLETE RIGHT BUNDLE BRANCH BLOCK ST-T WAVE ABNORMALITY IN ANTEROSEPTAL LEADS- CONSIDER ISCHEMIA BASELINE ARTIFACT- I, III, AVL ABNORMAL ECG COMPARED TO ECG 03/13/2022 11:57:21 SINUS RHYTHM NOW PRESENT FIRST DEGREE AV BLOCK NOW PRESENT Electronically Signed On 03-14-2022 7:31:23 CDT by Davide Moura D.O.
[2022-03-14 04:22] LABS: Basophils Absolute Auto 0.1 K/mm3 (0.0-0.1); Basophils Percent Auto 0.8 % (0.2-1.2); Eosinophils Absolute Auto 0.2 K/mm3 (0-0.3); Eosinophils Percent Auto 3.4 % (0-4.4); Hematocrit 40.1 % (37.0-47.0); Hemoglobin 12.7 g/dL (12.0-15.0); Immature Granulocyte Absolute 0.02 K/mm3 (0.00-0.031); Immature Granulocyte Percent A 0.3 % (0-0.5); Lymphocytes Absolute Auto 2.23 K/mm3 (0.9-3.2); Lymphocytes Percent Auto 36.4 % (18.3-44.2); Mean Corpuscular HGB Conc 31.7 g/dl (32-36); Mean Corpuscular Hemoglobin 30.4 pg (26-34); Mean Corpuscular Volume 95.9 fl (80-100); Mean Platelet Volume 8.7 fl (7.4-10.4); Monocytes Absolute Auto 0.5 K/mm3 (0.1-0.6); Neutrophils Absolute Auto 3.1 K/mm3 (1.3-6.7); Neutrophils Percent Auto 51.1 % (45.5-73.1); Platelet Count Result 345 k/mm3 (150-375); Red Blood Count 4.18 M/mm3 (4.2-5.4); Red Cell Distribution Width 13.3 % (11.5-14.5); White Blood Count 6.1 K/mm3 (4.5-10.0)
[2022-03-14 04:34] LABS: Creatine Kinase 215 U/L (30-135); Magnesium 1.9 mg/dL (1.6-2.3); Phosphorus 3.5 mg/dL (2.5-4.5)
--- NOTE | 2022-03-14 07:40 | PM.IMPN ---
Progress Note: A&P Assessment and Plan (1) Atrial fibrillation with rapid ventricular response: Code(s): I48.91 - Unspecified atrial fibrillation Status: Acute Assessment and Plan: Cardiology recommending flecainide in observation (2) Obstructive sleep apnea: Code(s): G47.33 - Obstructive sleep apnea (adult) (pediatric) Status: Acute Assessment and Plan: Continue BiPAP (3) Hyperlipidemia LDL goal <130: Code(s): E78.5 - Hyperlipidemia, unspecified Status: Acute Assessment and Plan: Continue Lipitor (4) Gastro-esophageal reflux disease without esophagitis: Code(s): K21.9 - Gastro-esophageal reflux disease without esophagitis Status: Acute Assessment and Plan: Continue PPI (5) Major depressive disorder, recurrent, moderate: Code(s): F33.1 - Major depressive disorder, recurrent, moderate Status: Acute Assessment and Plan: Continue Zoloft and amitriptyline Plan DVT prophylaxis with Eliquis GI prophylaxis not indicated Code status full code Subjective Date/time seen: 03/14/22 07:40 Interval history: No recurrent episodes of syncope. She did have an episode where she had a pause in her heart rate the meter feel uncomfortable. It quickly resolved on its own. No overnight events noted. No chest pain or shortness of breath. No nausea, vomiting or diarrhea. No fevers or chills. Review of Systems Review of Systems: 12 point review of systems was assessed and was negative except as noted in the HPI Exam Narrative: General: No acute distress, alert and oriented per baseline HEENT: Atraumatic, normocephalic, mucous membranes moist CV: Irregularly irregular, S1, S2 Lungs: Clear to auscultation bilaterally, no rales or crackles noted, no wheezes, good air entry Abdomen: Soft, nontender, nondistended Extremities: Normal to inspection Skin: No rashes noted, no lesions or wounds seen Psych: Euthymic, normal affect Objective Data Vital Signs Vital Signs: Vital Signs - 24 hr 03/13/22 11:45 03/13/22 12:39 03/13/22 12:45 Temperature 97.8 F Pulse Rate 98 68 97 Respiratory Rate 16 20 24 H Blood Pressure 117/78 Pulse Oximetry 98 94 92 Oxygen Delivery Room Air 03/13/22 12:46 03/13/22 12:47 03/13/22 12:56 Temperature Pulse Rate 91 76 79 Respiratory Rate 19 12 Blood Pressure 109/74 Pulse Oximetry 95 93 Oxygen Delivery 03/13/22 12:56 03/13/22 13:06 03/13/22 13:07 Temperature Pulse Rate 88 88 Respiratory Rate 18 Blood Pressure 118/80 Pulse Oximetry 93 94 Oxygen Delivery Room Air 03/13/22 13:15 03/13/22 13:16 03/13/22 13:17 Temperature Pulse Rate 94 101 H 90 Respiratory Rate 21 H 14 17 Blood Pressure 118/79 Pulse Oximetry 95 94 Oxygen Delivery 03/13/22 13:30 03/13/22 13:31 03/13/22 13:32 Temperature Pulse Rate 87 88 107 H Respiratory Rate 20 21 H 17 Blood Pressure 112/78 Pulse Oximetry 94 93 95 Oxygen Delivery 03/13/22 13:45 03/13/22 13:46 03/13/22 14:00 Temperature Pulse Rate 112 H 97 122 H Respiratory Rate 22 H 19 18 Blood Pressure 105/67 Pulse Oximetry 90 94 Oxygen Delivery 03/13/22 14:01 03/13/22 14:15 03/13/22 14:16 Temperature Pulse Rate 119 H 139 H 125 H Respiratory Rate 18 19 20 Blood Pressure 124/66 128/79 Pulse Oximetry 93 92 93 Oxygen Delivery 03/13/22 14:30 03/13/22 14:31 03/13/22 14:32 Temperature Pulse Rate 80 81 112 H Respiratory Rate 18 19 14 Blood Pressure 93/63 L Pulse Oximetry 89 L 92 93 Oxygen Delivery 03/13/22 14:45 03/13/22 14:46 03/13/22 15:00 Temperature Pulse Rate 103 H 83 84 Respiratory Rate 20 14 20 Blood Pressure 108/65 Pulse Oximetry 96 93 Oxygen Delivery 03/13/22 15:01 03/13/22 15:15 03/13/22 15:16 Temperature Pulse Rate 98 82 108 H Respiratory Rate 17 18 20 Blood Pressure 112/72 117/79 Pulse Oximetry 94 93 93 Oxygen Delivery
--- NOTE | 2022-03-14 08:25 | PM.CNCAR ---
Assessment and Plan Assessment and plan (1) Atrial fibrillation with rapid ventricular response: Code(s): I48.91 - Unspecified atrial fibrillation Status: Acute (2) Syncope and collapse: Code(s): R55 - Syncope and collapse Status: Acute Plan This is a 66-year-old lady with treated sleep apnea who has paroxysmal atrial fibrillation and no significant structural abnormalities when she had an echocardiogram done. We have been treating her with sotalol starting earlier this past summer. She now presents with a syncopal episode that occurred at home. On telemetry we are seeing significant conversion pauses when she reverts from atrial flutter to sinus rhythm. This time I will discontinue the sotalol as mentioned above we will start a modest dose of flecainide in hopes of maintaining sinus rhythm so that she does not have conversion pauses. If this type of situation continues to be problematic then a pacemaker implantation would possibly be necessary. If alternative medical antiarrhythmic therapy can maintain sinus rhythm this may not be required. We will keep her in the hospital at least a couple of days as we start alternative antiarrhythmic agent cMkay Braxton MD [facility] History of Present Illness History of Present Illness Consult date/time: 03/14/22 08:25 Consult reason: atrial fibrillation Reason For Visit: Afib RVR Narrative: This is a 66-year-old woman with a history of paroxysmal atrial fib who I am seeing after admission yesterday following a syncopal episode in her home. The patient has a history of paroxysmal atrial fib and I see her in the office in follow-up. She does not have any evidence of structural cardiac abnormalities by echo that has been performed and she does carry the diagnosis of sleep apnea for which she is compliant with her CPAP. She had been treated with simple beta-angela therapy and because of low chads score had not been anticoagulated for the most part. She did have a recurrence of her atrial fibrillation earlier in the summer last month and was hospitalized here at [facility]. We transitioned her from metoprolol to sotalol and started her on systemic anticoagulation with apixaban at that time. She reverted back to sinus rhythm and was seen in the office. Because of a longer QT interval I reduced her sotalol dosage to 40 mg twice daily of within the last several weeks. She has otherwise done fairly well. She came to the hospital yesterday after experiencing a syncopal episode in her home. She was not having any sense of palpitations shortness of breath or chest pain prior to this. She was walking in the hallway at her home from 1 room to another and she abruptly felt unwell her vision went dark and the next thing she remembers is waking up on the floor with her over her. She was brought to this hospital's emergency room in their private vehicle. Her wanted to call an ambulance but she resisted that. She was seen in the emergency room and admitted. In the emergency room she was in atrial fibrillation with rapid ventricular response heart rate 140-150. Of course she was placed on intravenous diltiazem which did control her heart rate. She was also given a dose of oral metoprolol. Early this morning she converted to sinus rhythm. The telemetry strip actually looked suspicious for atrial flutter at that time and when she converted she had a 5.6 sec asystolic pause. Her diltiazem was stopped at that time and I was informed this this morning at which time I instructed the staff to discontinue her sotalol. She has not received any dosage of that yet today. She is currently in sinus bradycardia with heart rates in the 50s and is asymptomatic. Review of Systems Constitutional: Constitutional: Reports no additional constitutional complaints Eyes: Eyes: Reports no additional eye complaints ENT: Reports system reviewed and no additional complaints, except as documented Ca
[2022-03-14] MEDS: APIXABAN 5 MG TABLET PO ×2 (08:50→20:12)
[2022-03-14] MEDS: PANTOPRAZOLE 40 MG TABLET PO (08:51)
[2022-03-14] MEDS: FLECAINIDE ACETATE 50 MG TABLET PO ×2 (09:18→20:11)
[2022-03-14] MEDS: SERTRALINE HCL 50 MG TABLET 100 MG PO (20:11)
[2022-03-14] MEDS: AMITRIPTYLINE HCL 10 MG TABLET PO (20:12)
[2022-03-14] MEDS: ASPIRIN 81 MG ENTERIC TABLET PO (20:12)
[2022-03-14] MEDS: ATORVASTATIN 40 MG TABLET PO (20:12)
[2022-03-15] VITALS (20 sets, daily range): BP systolic 97–131; BP diastolic 50–93; PULSE 36–129; RESP 12–20; TEMP 36.3–36.8; O2SAT 94–97
--- NOTE | 2022-03-15 06:59 | ECG_ITS ---
Measurements Intervals [place] Rate: 117 P: DC: 0 QRS: 70 QRSD: 88 T: 60 QT: 327 QTc: 457 Interpretive Statements ATRIAL FLUTTER/TACHYCARDIA WITH RAPID VENTRICULAR RESPONSE ST-T WAVE ABNORMALITY IN ANTEROSEPTAL LEADS- CONSIDER ISCHEMIA ABNORMAL ECG COMPARED TO ECG 03/14/2022 02:54:00 ATRIAL FLUTTER NOW PRESENT Electronically Signed On 03-15-2022 8:40:10 CDT by Davide Moura D.O.
[2022-03-15] MEDS: METOPROLOL TARTRATE 50 MG TAB PO ×2 (07:08→20:58)
--- NOTE | 2022-03-15 08:46 | PM.IMPN ---
Progress Note: A&P Assessment and Plan (1) Atrial fibrillation with rapid ventricular response: Code(s): I48.91 - Unspecified atrial fibrillation Status: Acute Assessment and Plan: Cardiology recommending flecainide with metoprolol, monitor, appreciate their recommendations Would recommend outpatient EP consultation for possible ablation? Considering pacemaker if patient continues to have refractory a flutter with conversion pauses and syncopal concerns. (2) Obstructive sleep apnea: Code(s): G47.33 - Obstructive sleep apnea (adult) (pediatric) Status: Acute Assessment and Plan: Continue BiPAP (3) Hyperlipidemia LDL goal <130: Code(s): E78.5 - Hyperlipidemia, unspecified Status: Acute Assessment and Plan: Continue Lipitor (4) Gastro-esophageal reflux disease without esophagitis: Code(s): K21.9 - Gastro-esophageal reflux disease without esophagitis Status: Acute Assessment and Plan: Continue PPI (5) Major depressive disorder, recurrent, moderate: Code(s): F33.1 - Major depressive disorder, recurrent, moderate Status: Acute Assessment and Plan: Continue Zoloft and amitriptyline Plan DVT prophylaxis with Eliquis GI prophylaxis not indicated Code status full code Subjective Date/time seen: 03/15/22 08:46 Interval history: Flipped back into AFib this morning around 6:00 a.m. Already back in NSR, asx the whole time. No overnight events noted. No chest pain or shortness of breath. No nausea, vomiting or diarrhea. No fevers or chills. Review of Systems Review of Systems: 12 point review of systems was assessed and was negative except as noted in the HPI Exam Narrative: General: No acute distress, alert and oriented per baseline HEENT: Atraumatic, normocephalic, mucous membranes moist CV: RRR, S1, S2, no murmurs rubs or gallops noted Lungs: Clear to auscultation bilaterally, no rales or crackles noted, no wheezes, good air entry Abdomen: Soft, nontender, nondistended Extremities: Normal to inspection Skin: No rashes noted, no lesions or wounds seen Psych: Euthymic, normal affect Objective Data Vital Signs Vital Signs: Vital Signs - 24 hr 03/14/22 09:18 03/14/22 10:00 03/14/22 12:29 Temperature 97.5 F L Pulse Rate 59 L 59 L 70 Respiratory Rate 18 Blood Pressure 100/56 L Pulse Oximetry 96 Oxygen Delivery 03/14/22 12:00 03/14/22 14:00 03/14/22 12:00 Temperature Pulse Rate 73 71 Respiratory Rate Blood Pressure Pulse Oximetry Oxygen Delivery Room Air 03/14/22 16:00 03/14/22 16:00 03/14/22 16:49 Temperature 97.1 F L Pulse Rate 69 65 65 Respiratory Rate 20 20 Blood Pressure 106/56 L Pulse Oximetry 98 98 Oxygen Delivery Room Air 03/14/22 18:00 03/14/22 19:30 03/14/22 19:36 Temperature 97.0 F L Pulse Rate 72 70 Respiratory Rate 20 Blood Pressure 105/57 L Pulse Oximetry 98 Oxygen Delivery Room Air 03/14/22 20:11 03/14/22 20:00 03/14/22 23:55 Temperature Pulse Rate 74 72 Respiratory Rate Blood Pressure Pulse Oximetry Oxygen Delivery Room Air 03/14/22 22:00 03/15/22 00:00 03/15/22 00:00 Temperature 97.8 F Pulse Rate 66 61 58 L Respiratory Rate 14 Blood Pressure 118/62 Pulse Oximetry 96 Oxygen Delivery 03/15/22 01:56 03/15/22 04:00 03/15/22 04:00 Temperature 97.4 F L Pulse Rate 56 L 56 L 75 Respiratory Rate 14 Blood Pressure 125/75 Pulse Oximetry 97 Oxygen Delivery 03/15/22 06:00 03/15/22 06:38 03/15/22 06:13 Temperature Pulse Rate 75 120 H 116 H Respiratory Rate Blood Pressure 129/93 H Pulse Oximetry Oxygen Delivery 03/15/22 07:08 03/15/22 08:00 Temperature 98.0 F Pulse Rate 129 H 101 H Respiratory Rate 20 Blood Pressure 131/92 H Pulse Oximetry 95 Oxygen Delivery Intake/Output Intake/Output: Intake & Output 03/12/22 03/13/22 03/14/22
[2022-03-15] MEDS: APIXABAN 5 MG TABLET PO ×2 (08:51→20:57)
[2022-03-15] MEDS: PANTOPRAZOLE 40 MG TABLET PO (08:51)
[2022-03-15] MEDS: FLECAINIDE ACETATE 100 MG TABLET PO ×2 (08:55→20:58)
[2022-03-15 10:11] LABS: Basophils Absolute Auto 0.1 K/mm3 (0.0-0.1); Basophils Percent Auto 0.8 % (0.2-1.2); Eosinophils Absolute Auto 0.2 K/mm3 (0-0.3); Eosinophils Percent Auto 3.4 % (0-4.4); Hematocrit 40.1 % (37.0-47.0); Hemoglobin 12.7 g/dL (12.0-15.0); Immature Granulocyte Absolute 0.01 K/mm3 (0.00-0.031); Immature Granulocyte Percent A 0.2 % (0-0.5); Lymphocytes Absolute Auto 1.47 K/mm3 (0.9-3.2); Lymphocytes Percent Auto 23.8 % (18.3-44.2); Mean Corpuscular HGB Conc 31.7 g/dl (32-36); Mean Corpuscular Hemoglobin 30.4 pg (26-34); Mean Corpuscular Volume 95.9 fl (80-100); Mean Platelet Volume 8.9 fl (7.4-10.4); Monocytes Absolute Auto 0.5 K/mm3 (0.1-0.6); Monocytes Percent Auto 7.8 % (2.6-8.5); Platelet Count Result 358 k/mm3 (150-375); Red Blood Count 4.18 M/mm3 (4.2-5.4); Red Cell Distribution Width 13.4 % (11.5-14.5); White Blood Count 6.2 K/mm3 (4.5-10.0)
--- NOTE | 2022-03-15 10:17 | PM.PNCARD ---
Progress Note: A&P Assessment and Plan (1) Syncope and collapse: Code(s): R55 - Syncope and collapse Status: Acute (2) Atrial flutter: Code(s): I48.92 - Unspecified atrial flutter Status: Acute Plan 66-year-old lady with paroxysmal atrial flutter. Transitioned her from sotalol to flecainide with metoprolol at this time to attempt medical therapy of this. She continues to be anticoagulated with apixaban. I will recommend keeping her in the hospital at least another 24 hours to assess the response to the current medical regimen. If she has no evidence of proarrhythmia and no problematic atrial flutter we can consider discharge tomorrow as being reasonable. Certainly of PAF and conversion pauses continue to occur with syncopal problems we would have to consider implanting a pacemaker device in this lady Mckay Braxton MD [facility] Subjective Date/time seen: Date of service: 03/15/22 10:17 Interval history: Follow-up visit in this 66-year-old lady with paroxysmal atrial flutter. She feels well at this time and is asymptomatic this morning. She did have another episode of atrial flutter with RVR this morning although with it she was totally asymptomatic. No pauses noted on telemetry. She has already converted back to sinus rhythm and did not have a conversion pause this morning. Exam Const: General: comfortable and no acute distress Other: Pleasant lady appearing her stated age comfortable cooperative no distress HENMT: Mouth: Yes moist mucous membranes Eyes: Sclera: sclerae normal Pupils: Equal, round and reactive pupils present Neck: Neck: supple and no JVD Other: Carotid pulses are normal in character bilaterally Resp: Effort & Inspection: normal respiratory effort Auscultation: clear to auscultation bilaterally Cardio: Rate: regular rate and bradycardic Other: No murmur no gallop GI: Auscultation: normal bowel sounds Skin: General skin exam: normal color Neuro: Cranial nerves: Yes Equal, round and reactive pupils present Other: Alert and oriented x3 Extrem: Other: Normal pulses, no edema Objective Data Vital Signs Vital Signs: Vital Signs - 24 hr 03/14/22 12:29 03/14/22 12:00 03/14/22 14:00 Temperature 36.4 C L Pulse Rate 70 73 71 Respiratory Rate 18 Blood Pressure 100/56 L Pulse Oximetry 96 Oxygen Delivery 03/14/22 12:00 03/14/22 16:00 03/14/22 16:00 Temperature Pulse Rate 69 65 Respiratory Rate 20 Blood Pressure Pulse Oximetry 98 Oxygen Delivery Room Air Room Air 03/14/22 16:49 03/14/22 18:00 03/14/22 19:30 Temperature 36.2 C L 36.1 C L Pulse Rate 65 72 70 Respiratory Rate 20 20 Blood Pressure 106/56 L 105/57 L Pulse Oximetry 98 98 Oxygen Delivery 03/14/22 19:36 03/14/22 20:11 03/14/22 20:00 Temperature Pulse Rate 74 72 Respiratory Rate Blood Pressure Pulse Oximetry Oxygen Delivery Room Air 03/14/22 23:55 03/14/22 22:00 03/15/22 00:00 Temperature Pulse Rate 66 61 Respiratory Rate Blood Pressure Pulse Oximetry Oxygen Delivery Room Air 03/15/22 00:00 03/15/22 01:56 03/15/22 04:00 Temperature 36.6 C Pulse Rate 58 L 56 L 56 L Respiratory Rate 14 Blood Pressure 118/62 Pulse Oximetry 96 Oxygen Delivery 03/15/22 04:00 03/15/22 06:00 03/15/22 06:38 Temperature 36.3 C L Pulse Rate 75 75 120 H Respiratory Rate 14 Blood Pressure 125/75 129/93 H Pulse Oximetry 97 Oxygen Delivery 03/15/22 06:13 03/15/22 07:08 03/15/22 08:00 Temperature 36.7 C Pulse Rate 116 H 129 H 101 H Respiratory Rate 20 Blood Pressure 131/92 H Pulse Oximetry 95 Oxygen Delivery 03/15/22 08:55 Temperature Pulse Rate 121 H Respiratory Rate Blood Pressure Pulse Oximetry Oxygen Delivery Intake/Output Intake/Output: Intake & Output 03/12/22 03/13/22 03/14/22 03/15/22 23:59 23:59 23:59 23:59 Intake Total 1240 920 290 Output
[2022-03-15 10:23] LABS: Anion Gap 6 mmol/L (8-16); Blood Urea Nitrogen 18 mg/dL (7-17); Carbon Dioxide 28 mmol/L (22-30); Chloride 105 mmol/L (98-107); Estimated CRCL calculation 55 ml/min; Estimated Glomerular Filt Rate 56; Glucose 120 mg/dL (65-110); Phosphorus 3.2 mg/dL (2.5-4.5); Potassium 4.1 mmol/L (3.4-5.0); Sodium 139 mmol/L (137-145)
[2022-03-15] MEDS: ATORVASTATIN 40 MG TABLET PO (20:57)
[2022-03-15] MEDS: ASPIRIN 81 MG ENTERIC TABLET PO (20:57)
[2022-03-15] MEDS: AMITRIPTYLINE HCL 10 MG TABLET PO (20:57)
[2022-03-15] MEDS: SERTRALINE HCL 50 MG TABLET 100 MG PO (20:59)
[2022-03-16] VITALS (8 sets, daily range): BP systolic 113–116; BP diastolic 53–70; PULSE 51–70; RESP 12–16; TEMP 36.1–36.8; O2SAT 96–99
[2022-03-16 05:06] LABS: Basophils Absolute Auto 0.1 K/mm3 (0.0-0.1); Basophils Percent Auto 0.8 % (0.2-1.2); Eosinophils Absolute Auto 0.3 K/mm3 (0-0.3); Eosinophils Percent Auto 4.2 % (0-4.4); Hematocrit 38.2 % (37.0-47.0); Hemoglobin 12.1 g/dL (12.0-15.0); Immature Granulocyte Absolute 0.04 K/mm3 (0.00-0.031); Immature Granulocyte Percent A 0.6 % (0-0.5); Lymphocytes Absolute Auto 2.11 K/mm3 (0.9-3.2); Lymphocytes Percent Auto 29.3 % (18.3-44.2); Mean Corpuscular HGB Conc 31.7 g/dl (32-36); Mean Corpuscular Hemoglobin 30.6 pg (26-34); Mean Corpuscular Volume 96.7 fl (80-100); Mean Platelet Volume 9.3 fl (7.4-10.4); Monocytes Absolute Auto 0.6 K/mm3 (0.1-0.6); Monocytes Percent Auto 8.3 % (2.6-8.5); Neutrophils Absolute Auto 4.1 K/mm3 (1.3-6.7); Neutrophils Percent Auto 56.8 % (45.5-73.1); Platelet Count Result 374 k/mm3 (150-375); Red Blood Count 3.95 M/mm3 (4.2-5.4); Red Cell Distribution Width 13.5 % (11.5-14.5); White Blood Count 7.2 K/mm3 (4.5-10.0)
[2022-03-16 05:21] LABS: Anion Gap 12 mmol/L (8-16); Blood Urea Nitrogen 21 mg/dL (7-17); Calcium 8.8 mg/dL (8.4-10.2); Carbon Dioxide 29 mmol/L (22-30); Chloride 102 mmol/L (98-107); Estimated CRCL calculation 51 ml/min; Estimated Glomerular Filt Rate 50; Glucose 110 mg/dL (65-110); Potassium 4.3 mmol/L (3.4-5.0); Sodium 143 mmol/L (137-145)
[2022-03-16] MEDS: FLECAINIDE ACETATE 100 MG TABLET PO (08:30)
[2022-03-16] MEDS: PANTOPRAZOLE 40 MG TABLET PO (08:30)
[2022-03-16] MEDS: APIXABAN 5 MG TABLET PO (08:30)
[2022-03-16] MEDS: METOPROLOL TARTRATE 50 MG TAB PO (08:31)
--- NOTE | 2022-03-16 08:43 | PM.PNCARD ---
Progress Note: A&P Assessment and Plan (1) Atrial flutter: Code(s): I48.92 - Unspecified atrial flutter Status: Acute (2) Syncope and collapse: Code(s): R55 - Syncope and collapse Status: Acute Plan 66-year-old lady with paroxysmal atrial flutter now on the regimen of apixaban, metoprolol and flecainide and hopefully this will keep her in sinus rhythm and also prevent pauses with syncope when she converts from a flutter to sinus. She has been on flecainide long enough to observe her in the hospital for proarrhythmia. As we are seeing on she can be discharged today. She does have an appointment in my office for follow-up couple of weeks from now. That appointment should be sufficient. If she does have recurrent syncopal episodes on this regimen then we will need to proceed with pacemaker implantation Mckay Braxton MD [facility] Subjective Date/time seen: Date of service: 03/16/22 08:43 Interval history: Follow-up visit in this 66-year-old lady with: Paroxysmal atrial fibrillation. Admitted with recurrence of her atrial fibrillation also with syncope due to conversion pauses. She has been transitioned from sotalol to the combination of Tambocor and metoprolol and has not had any atrial arrhythmias since about 36 hours ago and has not demonstrated any proarrhythmia with Tambocor. No complaints this morning Exam Const: General: comfortable and no acute distress Other: Pleasant lady appearing her stated age comfortable cooperative no distress HENMT: Mouth: Yes moist mucous membranes Eyes: Sclera: sclerae normal Neck: Neck: supple and no JVD Resp: Effort & Inspection: normal respiratory effort Auscultation: clear to auscultation bilaterally Cardio: Rate: regular rate Rhythm: regular rhythm Other: No murmur no gallop GI: GI Palp: Yes Soft to palpation Auscultation: normal bowel sounds Skin: General skin exam: normal color Neuro: Other: Normal cognition Extrem: General: normal to inspection Objective Data Vital Signs Vital Signs: Vital Signs - 24 hr 03/15/22 08:55 03/15/22 12:00 03/15/22 12:00 Temperature 36.5 C Pulse Rate 121 H 58 L Respiratory Rate 16 Blood Pressure 97/50 L Pulse Oximetry 96 Oxygen Delivery Room Air 03/15/22 10:00 03/15/22 09:33 03/15/22 12:00 Temperature Pulse Rate 81 36 L 59 L Respiratory Rate Blood Pressure Pulse Oximetry Oxygen Delivery 03/15/22 14:00 03/15/22 16:00 03/15/22 17:07 Temperature Pulse Rate 63 56 L Respiratory Rate Blood Pressure Pulse Oximetry 94 Oxygen Delivery Room Air 03/15/22 16:00 03/15/22 16:00 03/15/22 18:00 Temperature 36.4 C Pulse Rate 58 L 64 Respiratory Rate 12 Blood Pressure 102/79 Pulse Oximetry 96 Oxygen Delivery Room Air 03/15/22 20:00 03/15/22 20:58 03/15/22 20:58 Temperature 36.8 C Pulse Rate 68 63 65 Respiratory Rate 12 Blood Pressure 111/61 Pulse Oximetry 96 Oxygen Delivery 03/15/22 20:00 03/15/22 20:00 03/15/22 22:00 Temperature Pulse Rate 74 66 Respiratory Rate Blood Pressure Pulse Oximetry Oxygen Delivery Room Air 03/15/22 23:25 03/16/22 00:00 03/16/22 00:00 Temperature 36.8 C Pulse Rate 64 60 Respiratory Rate 14 Blood Pressure 131/73 Pulse Oximetry 96 Oxygen Delivery Room Air 03/16/22 02:00 03/16/22 04:00 03/16/22 04:00 Temperature Pulse Rate 57 L 56 L Respiratory Rate Blood Pressure Pulse Oximetry Oxygen Delivery Room Air 03/16/22 04:00 03/16/22 06:00 03/16/22 08:00 Temperature 36.8 C 36.1 C L Pulse Rate 57 L 65 51 L Respiratory Rate 12 16 Blood Pressure 116/70 113/53 L Pulse Oximetry 99 96 Oxygen Delivery 03/16/22 08:30 03/16/22 08:31 Temperature Pulse Rate 54 L 52 L Respiratory Rate Blood Pressure Pulse Oximetry Oxygen Delivery Intake/Output Intake/Output: Intake & Output 03/13/22 03/14/22
--- NOTE | 2022-03-16 10:42 | PM.DS ---
DS: Admitting Diagnosis Discharge Date March 16, 2022 Admitting Diagnosis AFib with RVR DS: Discharge Diagnosis Discharge Diagnosis (1) Atrial fibrillation with rapid ventricular response: Code(s): I48.91 - Unspecified atrial fibrillation Status: Acute Assessment and Plan: Cardiology recommending flecainide with metoprolol, monitor, appreciate their recommendations Would recommend outpatient EP consultation for possible ablation? Considering pacemaker if patient continues to have refractory a flutter with conversion pauses and syncopal concerns. (2) Obstructive sleep apnea: Code(s): G47.33 - Obstructive sleep apnea (adult) (pediatric) Status: Acute Assessment and Plan: Continue BiPAP (3) Hyperlipidemia LDL goal <130: Code(s): E78.5 - Hyperlipidemia, unspecified Status: Acute Assessment and Plan: Continue Lipitor (4) Gastro-esophageal reflux disease without esophagitis: Code(s): K21.9 - Gastro-esophageal reflux disease without esophagitis Status: Acute Assessment and Plan: Continue PPI (5) Major depressive disorder, recurrent, moderate: Code(s): F33.1 - Major depressive disorder, recurrent, moderate Status: Acute Assessment and Plan: Continue Zoloft and amitriptyline Plan DVT prophylaxis with Eliquis GI prophylaxis not indicated Code status full code DS: Summary Hospital Course Hospital Course: 66-year-old female patient who has a history of atrial fibrillation.? The patient came to the emergency room to be evaluated for syncopal event.? The patient stated that she was in the kitchen reaching for the refrigerator when her? ask your what was wrong? and if she felt all right.? The? the stated that her eyes rolled in the back of her head she fell backwards hitting her head her eyes were open but she was not responsive for approximately 30 seconds.? She is currently on Eliquis for the atrial fibrillation.? She has been on metoprolol.? the patient stated that she has been taking her medications as prescribed. the patient was found to be in AFib with RVR today.? The patient was given IV Cardizem and then p.o. metoprolol .? It was reported that the patient had been on sotalol but her heart rate got too low and then was taken to lower dose of sotalol. Patient was placed on the regimen of apixaban, metoprolol and flecainide and hopefully this will keep her in sinus rhythm and also prevent pauses with syncope when she converts from a flutter to sinus.? She has been on flecainide long enough to observe her in the hospital for proarrhythmia.? As we are seeing on she can be discharged today.? She does have an appointment in my office for follow-up couple of weeks from now.? That appointment should be sufficient.? If she does have recurrent syncopal episodes on this regimen then we will need to proceed with pacemaker implantation. Time Spent with Patient Time attestation: Total time spent providing and/or coordinating discharge services: Exam Narrative: General: No acute distress, alert and oriented per baseline HEENT: Atraumatic, normocephalic, mucous membranes moist CV: RRR, S1, S2, no murmurs rubs or gallops noted Lungs: Clear to auscultation bilaterally, no rales or crackles noted, no wheezes, good air entry Abdomen: Soft, nontender, nondistended Extremities: Normal to inspection Skin: No rashes noted, no lesions or wounds seen Psych: Euthymic, normal affect DS: Data Data Completed and Pending Labs on day of discharge: Labs from last 24 hours 03/16/22 03/16/22 04:08 04:08 WBC 7.2 RBC 3.95 L Hgb 12.1 Hct 38.2 MCV 96.7 MCH 30.6 MCHC 31.7 L RDW 13.5 Plt Count 374 MPV 9.3 Immature Gran % (Auto) 0.6 H Neut % (Auto) 56.8 Lymph % (Auto) 29.3 [place] % (Auto) 8.3 Eos % (Auto) 4.2 Baso % (Auto) 0.8 Lymph # (Auto) 2.11 [place] # (Auto) 0.6 Eos # (Auto) 0.3 Baso # (
== END 2022-03-16 11:05 | disposition home or self-care (01) | DRG 309 ==
LOC: ANHED 12:20 → ANHIMU 18:07
PROVIDERS: Emergency Medicine; Nurse Practitioner; Physician Assistant; Admitting Provider Chiropractor; Emergency Provider Emergency Medicine; PCP Family Medicine; Visit Provider Student in an Organized Health Care Education/Training Program
DX: I48.0 Paroxysmal atrial fibrillation (principal); F33.1 Major depressive disorder, recurrent, moderate; I48.92 Unspecified atrial flutter; E78.5 Hyperlipidemia, unspecified; K21.9 Gastro-esophageal reflux disease without esophagitis; M54.50 Low back pain, unspecified; G89.29 Other chronic pain; G47.33 Obstructive sleep apnea (adult) (pediatric); Z79.01 Long term (current) use of anticoagulants; Z90.710 Acquired absence of both cervix and uterus; Z86.718 Personal history of other venous thrombosis and embolism
CPT/HCPCS: 36415; 70450; 71046; 80048; 80053; 82550; 82728; 83735; 84100; 84443; 84484; 85025; 85610; 85730; 93005; 96361; 96365; 96366; 96376; 99285; A9270; G0378; J0461; J7030

== ENCOUNTER 2022-03-18 09:35 | Emergency (ER) | payer MEDICARE, SELFPAY ==
[2022-03-18 09:50] VITALS: BP 111/96; PULSE 45; RESP 14; TEMP 36.9; O2SAT 95
--- NOTE | 2022-03-18 09:50 | ECG_ITS ---
Measurements Intervals [place] Rate: 52 P: 63 SC: 199 QRS: 53 QRSD: 98 T: 59 QT: 482 QTc: 450 Interpretive Statements SINUS BRADYCARDIA ST-T WAVE ABNORMALITY IN ANTEROSEPTAL LEADS- CONSIDER ISCHEMIA ABNORMAL ECG COMPARED TO ECG 03/15/2022 07:14:34 SINUS BRADYCARDIA NOW PRESENT Electronically Signed On 03-18-2022 12:38:29 CDT by Davide Moura D.O.
[2022-03-18 09:53] VITALS: PULSE 50
--- NOTE | 2022-03-18 09:58 | ED.GENADULT ---
HPI - General Adult General Chief complaint: Unspecified <Glo Pryor PA-C - Last Filed: 03/18/22 20:48> Stated complaint: low pulse 40-meds cut in half, covid test, <Glo Pryor PA-C - Last Filed: 03/18/22 20:48> Time Seen by Provider: 03/18/22 09:47 <Glo Pryor PA-C - Last Filed: 03/18/22 20:48> History of Present Illness HPI narrative: Patient is a 66-year-old female with a history of paroxysmal atrial flutter (takes apixaban, metoprolol and flecainide) here for evaluation of low heart rate at her primary care provider's office this morning. Patient presented to her primary care for hospital follow-up this morning from her admission for a fib rvr. During her admission, her medications were adjusted and she was started on metoprolol 50 and flecainide 100- she was discharged on 03/16. Today at her doctor's office she was noted to have heart rate in the 40s which prompted her to be sent to the ED. Patient denies any weakness, chest pain, fatigue. She has been complaining of a sore throat, nasal congestion and drainage; has not yet tested herself for COVID. No SOB or cough. Patient did feel nauseated today at her office and vomited once but she states this was her gag reflex after getting tested for strep. <Glo Pryor PA-C - Last Filed: 03/18/22 20:48> Related Data Home medications: Home Medications Medication Instructions Recorded Confirmed aspirin 81 mg tablet,delayed 81 mg PO HS 09/01/19 03/18/22 release (Adult Low Dose Aspirin) amitriptyline 10 mg tablet 10 mg PO HS 02/12/22 03/18/22 atorvastatin 40 mg tablet 40 mg PO HS 02/12/22 03/18/22 ergocalciferol (vitamin D2) 1,250 1,250 mcg PO DIRECTED 02/12/22 03/18/22 mcg (50,000 unit) capsule omeprazole 20 mg capsule,delayed 20 mg PO DAILY 02/12/22 03/18/22 release sertraline 100 mg tablet 100 mg PO HS 02/12/22 03/18/22 apixaban 5 mg tablet (Eliquis) 5 mg PO Q12H 03/13/22 03/18/22 <Glo Pryor PA-C - Last Filed: 03/18/22 20:48> Allergies/adverse reactions: Allergies Allergy/AdvReac Type Severity Reaction Status Date / Time duloxetine Allergy Unknown Unknown Verified 03/18/22 09:53 latex Allergy Unknown Skin Verified 03/18/22 09:53 Reaction nitrofurantoin Allergy Unknown Skin Verified 03/18/22 09:53 Reaction LATEX TAPE Allergy Unknown BROKE OUT Uncoded 03/18/22 09:53 WITH BLISTERS <Glo Pryor PA-C - Last Filed: 03/18/22 20:48> Review of Systems Review of Systems: Gen: Denies fevers or chills Eyes: Denies eye pain or visual change ENT: Reports congestion Respiratory: Denies shortness of breath or cough CV: Denies chest pain or palpitations GI: Denies abdominal pain nausea, emesis or diarrhea : denies burning, urgency, frequency or hematuria Musculoskeletal: Denies back pain or muscle pain Neuro: Denies numbness, tingling, weakness or focal weakness Skin: Denies rash Except as documented, all other systems reviewed and negative <Glo Pryor PA-C - Last Filed: 03/18/22 20:48> [facility] Past Medical History Medical History: Medical History Adjustment disorder with anxiety Atrial fibrillation Chronic bilateral low back pain without sciatica DVT of leg (deep venous thrombosis) Gastro-esophageal reflux disease without esophagitis Hyperlipidemia LDL goal <130 Major depressive disorder, recurrent, moderate <Glo Pryor PA-C - Last Filed: 03/18/22 20:48> Surgical History Surgical History: Surgical History H/O: hysterectomy History of back surgery History of bladder surgery <Glo Pryor PA-C - Last Filed: 03/18/22 20:48> Family History Family History: Family History Mother Diabetes mellitus Hypertensi
[2022-03-18 10:15] VITALS: BP 114/66; PULSE 53; RESP 17; O2SAT 98
[2022-03-18 10:28] LABS: Basophils Percent Auto 0.5 % (0.2-1.2); Eosinophils Absolute Auto 0.1 K/mm3 (0-0.3); Eosinophils Percent Auto 1.3 % (0-4.4); Hematocrit 40.9 % (37.0-47.0); Hemoglobin 12.9 g/dL (12.0-15.0); Immature Granulocyte Absolute 0.06 K/mm3 (0.00-0.031); Immature Granulocyte Percent A 0.7 % (0-0.5); Lymphocytes Absolute Auto 1.18 K/mm3 (0.9-3.2); Lymphocytes Percent Auto 13.4 % (18.3-44.2); Mean Corpuscular HGB Conc 31.5 g/dl (32-36); Mean Corpuscular Hemoglobin 30.6 pg (26-34); Mean Corpuscular Volume 96.9 fl (80-100); Neutrophils Absolute Auto 6.4 K/mm3 (1.3-6.7); Neutrophils Percent Auto 73.1 % (45.5-73.1); Platelet Count Result 317 k/mm3 (150-375); Red Blood Count 4.22 M/mm3 (4.2-5.4); Red Cell Distribution Width 13.4 % (11.5-14.5); White Blood Count 8.8 K/mm3 (4.5-10.0)
[2022-03-18 10:36] LABS: Alanine Aminotransferase 20 U/L (6-35); Albumin Level 4.1 g/dL (3.5-5.1); Alkaline Phosphatase 96 U/L (38-126); Anion Gap 11 mmol/L (8-16); Aspartate Amino Transferase 42 U/L (14-36); Bilirubin,Total 0.5 mg/dL (0.2-1.3); Blood Urea Nitrogen 18 mg/dL (7-17); Calcium 9.1 mg/dL (8.4-10.2); Carbon Dioxide 24 mmol/L (22-30); Chloride 102 mmol/L (98-107); Estimated CRCL calculation 50 ml/min; Estimated Glomerular Filt Rate 50; Glucose 118 mg/dL (65-110); Potassium 3.8 mmol/L (3.4-5.0); Sodium 137 mmol/L (137-145)
[2022-03-18 11:38] VITALS: BP 127/57; PULSE 57; RESP 17; O2SAT 95
[2022-03-18 12:37] VITALS: BP 124/82; PULSE 57; RESP 18; O2SAT 96
[2022-03-18 12:41] LABS: SARS-CoV-2 RNA PCR Positive
== END 2022-03-18 12:39 | disposition home or self-care (01) ==
PROVIDERS: Physician Assistant; Emergency Provider Emergency Medicine; PCP Family Medicine
DX: R00.1 Bradycardia, unspecified (principal); I48.92 Unspecified atrial flutter; I48.0 Paroxysmal atrial fibrillation; U07.1 COVID-19; E78.5 Hyperlipidemia, unspecified; K21.9 Gastro-esophageal reflux disease without esophagitis; F43.22 Adjustment disorder with anxiety; F33.9 Major depressive disorder, recurrent, unspecified; Z90.710 Acquired absence of both cervix and uterus; Z86.718 Personal history of other venous thrombosis and embolism; Z79.82 Long term (current) use of aspirin; Z79.01 Long term (current) use of anticoagulants; R94.31 Abnormal electrocardiogram [ECG] [EKG]
CPT/HCPCS: 36415; 80053; 85025; 93005; 99283; C9803; U0003; U0005

== ENCOUNTER 2022-06-08 10:39 | Outpatient (CLI) | payer MEDICARE, SELFPAY ==
[2022-06-05 12:56] VITALS: BMI 29.9
[2022-06-08 11:30] VITALS: BP 144/50; PULSE 71; RESP 16; TEMP 37.2; O2SAT 98
--- NOTE | 2022-06-08 13:03 | P.PCNCC_ITS ---
Cardiac Cath Procedure Note Date of procedure:: 06/08/22 Performing physician:: Mckay Braxton MD Indication:: Intermittent syncopal and near syncopal episodes. Brief clinical history:: This is a 66-year-old woman with a history of paroxysmal atrial fibrillation currently being maintained in sinus rhythm with flecainide. She has been anticoagulated with apixaban. Since being treated with flecainide she is reporting episodes of brief transitory near syncopal episodes and a couple of brian syncopal episodes. An outpatient event monitor head did not show any arrhythmias. As result of ongoing symptoms and implantable loop recorder has been recommended and scheduled for this morning. Procedure Procedure performed:: Implantation of loop recorder Sedation/Medication given:: No sedation Access site:: Left anterior chest wall Estimated blood loss:: Minimal Procedure note:: Patient was brought to the cardiac catheterization lab in the postabsorptive state. Her apixaban had been held for 4 days prior to this procedure. The left anterior chest wall was inspected and a saji was made in the 4th intercostal space in the midclavicular line. The area was then prepped and draped in sterile fashion. Following this the loop recorder was implanted. The patient had a puncture wound made at the site of the or saji using the insertion tool. Following this the supplied insertion kit was used to implant the Biotronik Biomonitor loop recorder uneventfully. Telemetry using the analyzer short excellent sensing of her sinus rhythm and and atrial lead P waves as well. Light pressure was held over the puncture wound for hemostasis the areas that being dressed with Dermabond and a Band-Aid. Findings:: As above Conclusion:: Successful uncomplicated implantation of a BiotroniCaseMetrix Biomonitor 3 m implantable loop recorder for evaluation of ongoing episodes of near-syncope and syncope in this 66-year-old lady with history of paroxysmal atrial fibrillation and antiarrhythmic treatment with flecainide. Mckay Braxton MD [facility]
[2022-06-08 13:14] VITALS: BP 155/92; PULSE 77; RESP 16; O2SAT 99
== END 2022-06-08 13:57 | disposition home or self-care (01) ==
LOC: ANHCARD 10:41
PROVIDERS: PCP Family Medicine; Visit Provider Specialist
PROC: (CPT 33285; principal; 2022-06-08 12:00)
DX: R55 Syncope and collapse (principal); I48.0 Paroxysmal atrial fibrillation; Z79.01 Long term (current) use of anticoagulants
CPT/HCPCS: 33285; C1764

== ENCOUNTER → 2022-08-27 10:39 | Outpatient (CLI) | payer MEDICARE, SELFPAY ==
--- NOTE | ~2022-08-27 | MM_ITS ---
EXAMINATION: MM screening adria BI w cassy HISTORY: Screening mammogram TECHNIQUE: Craniocaudal and mediolateral oblique 3-D tomosynthesis images were obtained and synthetic 2-D images were generated. CAD analysis was submitted and interpreted. COMPARISON: 04/07/2021, 03/31/2020 bilateral screening mammogram examinations BREAST PARENCHYMAL COMPOSITION: There are scattered areas of fibroglandular density. FINDINGS: Monitor device is noted overlying the left breast. There is no evidence of suspicious mass, calcification, or architectural distortion to suggest malignancy in either breast. There has been no suspicious interval change. IMPRESSION: 1. No mammographic evidence of malignancy. 2. Recommend routine screening mammography in one year. BI-RADS Category 1: Negative Reviewed, dictated and finalized at location A. ITAL COORDINATOR
--- NOTE | ~2022-08-27 | DEXA_ITS ---
Bone Density Report Name: LINDA ARDON Age: 66 Sex: Female Ethnicity: White Date of : 1955 Indication: osteopenia; hysterectomy; Referring Provider: RADHA, ELLA Study: Bone densitometry was performed. Exam Date: August 27, 2022 Accession number: [id number] Bone Density: Region BMD T-score Z-score Classification AP Spine (L1-L4) 0.927 -1.1 0.7 Osteopenia Femoral Neck (Left) 0.723 -1.1 0.4 Osteopenia Total Hip (Left) 0.917 -0.2 1.0 Normal Femoral Neck (Right) 0.643 -1.9 -0.4 Osteopenia Total Hip (Right) 0.897 -0.4 0.9 Normal Total Hip Mean 0.907 -0.3 1.0 Normal World Health Organization criteria for BMD impression classify patients as: Normal (T-score at or above -1.0), Osteopenia (T-score between -1.0 and -2.5), or Osteoporosis (T-score at or below -2.5). 10-year Fracture Risk(1): Major Osteoporotic Fracture 9.7% Hip Fracture 1.3% Reported Risk Factors: [place] (), Neck BMD=0.643, BMI=29.6 (1) FRAX(R) Version 3.08. Fracture probability calculated for an untreated patient. Fracture probability may be lower if the patient has received treatment. Previous Exams: Region Exam Age BMD T-score BMD Change BMD Change Date g/cm2 vs Baseline vs Previous AP Spine(L1-L4) 08/27/2022 66 0.927 -1.1 0.001 0.001 04/04/2020 64 0.926 -1.1 Total Hip(Left) 08/27/2022 66 0.917 -0.2 -0.026 -0.026 04/04/2020 64 0.943 0.0 Total Hip(Right) 08/27/2022 66 0.897 -0.4 0.008 0.008 04/04/2020 64 0.889 -0.4 *Denotes significance at 95% confidence level, LSC for AP Spine = 0.022 g/cm2, LSC for Total Hip = 0.027 g/cm2 Clinical Information Provided by Patient: Has used the following medications: Vitamin D Has the following medical conditions: Hysterectomy Patient maximum height was 66.5 Menopause Age: 44 No regular weight bearing exercise Drinks caffeinated beverages Onset of menses at age 14 Number of children 2 Impression: The patient has low bone mass, based on the Right Femoral Neck T-score. The patient has an estimated ten-year risk of hip fracture of 1.3% and an estimated ten-year risk of major fracture of 9.7%, based on the WHO FRAX algorithm. No significant bone loss was observed. Discussion: BONE DENSITY IS LOW AT ONE OR MORE SKELETAL SITES. This patient's lowest T-score is low at one or more skeletal sites. It meets the World Health Organization'
== END ==
PROVIDERS: PCP Family Medicine; Visit Provider Nurse Practitioner
DX: Z12.31 Encounter for screening mammogram for malignant neoplasm of breast (principal); Z78.0 Asymptomatic menopausal state; M85.89 Other specified disorders of bone density and structure, multiple sites
CPT/HCPCS: 77063; 77067; 77080

== ENCOUNTER 2022-09-23 07:50 | Outpatient (CLI) | payer MEDICARE, SELFPAY ==
--- NOTE | 2022-09-23 13:38 | WPDPFTINT ---
PFT Procedure Performed PFT Procedure Performed Spirometry with Pre/Post Bronchodilator Plethysmography (Lung Vol) Diffusing Cap (DLCO) Flow Vol Loop PFT Interpretation This is a pulmonary function test with pre and post-bronchodilator spirometry, plethysmography and diffusing capacity. The test was performed and results interpreted in accordance with the 2019 and 2005 ATS/ERS Task Force guidelines respectively using the Global Lung Function Initiative-2012 reference equations. Patient demonstrated good effort and cooperation. Reproducibility criteria were met. The quality of the pre bronchodilator spirometry maneuver was Grade B and post bronchodilator spirometry maneuver was Grade A. Findings: Spirometry: The contour the inspiratory and expiratory flow tracing are normal. The pre bronchodilator FVC is 3.07 L, 95% predicted. The pre bronchodilator FEV1 is 2.40 L, 95% predicted. The pre bronchodilator FEV1: FVC ratio 78%. The post bronchodilator FVC is 3.06 L, representing 1% decrease. The post bronchodilator FEV1 is 2.57 L, representing a 7% increase. The post bronchodilator FEV1: FVC ratio was 84%. Plethysmography: The total lung capacity is 4.67 L, 87% predicted. The functional residual capacity is 2.40 L, 78% predicted. The residual volume is 1.60 L, 73% predicted. Diffusing capacity: The diffusing capacity unadjusted for hemoglobin and carboxyhemoglobin is 14.0, 64% predicted. The diffusing capacity adjusted for alveolar volume is 4.53, 106% predicted. Impression: The spirometry is normal without evidence of an obstructive abnormality. There is no significant improvement after inhaling a single dose of albuterol. The lung volumes are normal. The diffusing capacity is normal. There are no prior studies for comparison
== END 2022-09-23 07:51 | disposition home or self-care (01) ==
LOC: ANHPFT 07:52
PROVIDERS: PCP Family Medicine; Visit Provider Family Medicine
DX: R06.09 Other forms of dyspnea (principal)
CPT/HCPCS: 94060; 94726; 94729

== ENCOUNTER 2022-12-22 09:22 | Outpatient (CLI) | payer MEDICARE, SELFPAY ==
--- NOTE | 2022-12-24 09:12 | SLEEP ---
Paper documentation exists on this patient due to [employer] downtime on 12/23/22 from to [[id number]] .
--- NOTE | 2022-12-29 18:06 | WPDHOMESLEEP ---
Sleep Study - Home Unattended Date of Study: 12/22/22 Ordering Provider: Claudia Lamar DO Interpreting Provider: Claudia Lamar DO Home Sleep Study Type: Watch PAT Height: 1.68 m Weight: 83.915 kg Body Mass Index: 29.8 Neck Circumference (inches): 13.25 [place]: 2 Reason for Sleep Study Snoring, atrial fibrillation Sleep History The patient is a 67-year-old female with atrial fibrillation, depression, GERD, hyperlipidemia, chronic low back pain and history of lower extremity DVT that had a sleep study ordered for evaluation of sleep apnea. The patient is currently retired. She denies awakening from sleep short of breath. She occasionally awakens at night with heartburn, belching or cough. She frequently snores and is frequently loud enough that others complain. She denies having trouble sleeping when she has a cold. She denies waking up gasping for air throughout the night. She denies having breathing problems at night observed by herself or others. She occasionally sweats excessively at night. She occasionally has heart palpitations or irregular heartbeats during the night. She denies falling asleep during the day and while driving. She denies sleep paralysis, cataplexy and hypnagogic / hypnopompic hallucinations. He denies having trouble at school or work due to sleepiness. She denies having nightmares. She occasionally remembers her dreams. She denies having thoughts racing through her mind. She occasionally feels sad, depressed and anxious. She occasionally has muscular tension. She denies noticing parts of her body jerk. She denies kicking during the night. She denies having crawling and aching feelings in her legs and denies having leg pain during the. She denies grinding her teeth during sleep and denies awakening in the morning with jaw pain. She denies being bothered by pain during the day and denies being awakened by pain during the night. She denies waking up feeling stiff in the morning. She denies waking up with sore or achy muscles. She denies waking up with pain in the neck, spine or other joints. She goes to bed between 9-10 p.m. on both weekdays and weekends. It takes her 5-10 minutes to fall asleep. She wakes up once throughout the night to urinate and is able to fall back asleep immediately. She wakes up at 7:00 a.m. on weekdays and 8:00 a.m. on the weekends. She typically gets 7-9 hours of sleep per night. She will stay in bed for 30 minutes after waking up in the morning. She currently lives with her . She denies engaging in physical exercise before bedtime. She denies reading before falling asleep. She will occasionally watch television before falling asleep. She denies taking naps in the afternoon or the evening. She consumes 2-3 caffeinated beverages per day. She denies tobacco, alcohol and recreational drug use. [facility] Past Medical History Medical History Adjustment disorder with anxiety Atrial fibrillation Chronic bilateral low back pain without sciatica DVT of leg (deep venous thrombosis) Gastro-esophageal reflux disease without esophagitis Hyperlipidemia LDL goal <130 Major depressive disorder, recurrent, moderate Surgical History Surgical History H/O: hysterectomy History of back surgery History of bladder surgery Family History Family History Mother Diabetes mellitus Hypertension Family history of elevated blood lipids Carcinoma of colon Colon polyp Father Diabetes mellitus Hypertension Family history of elevated blood lipids Social History Social History Social History: 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 The patient retired from [employer]. She never s
[2022-12-29 18:13] VITALS: BMI 29.8
== END 2022-12-24 09:13 | disposition home or self-care (01) ==
LOC: ANHCSM 09:23
PROVIDERS: PCP Family Medicine; Visit Provider Family Medicine
DX: G47.33 Obstructive sleep apnea (adult) (pediatric) (principal)
CPT/HCPCS: 95800

== ENCOUNTER 2023-02-02 15:25 | Outpatient (CLI) | payer MEDICARE, SELFPAY ==
--- NOTE | 2023-02-02 15:29 | ECHO_ITS ---
Patient Info Name: Reena Mc Age: 67 years : 1955 Gender: Female Ht: 65 in Wt: 190 lbs BSA: 2.02 m2 HR: 72 bpm BP: 140 / 84 mmHg Heart Rhythm: Sinus Rhythm Technical Quality: Fair Exam Date: 02/02/2023 3:38 PM Exam Location: [facility] Card Pulmonary Patient Status: Outpatient Admit Date: 02/02/2023 Staff Ordering Physician: Claudia Lamar DO Sewage Disposal Engineer: Rosalinda Romero RDCS Attending Provider: Claudia Lamar DO Referring Physician: Willard VILLAFANA; Exam Type: CA echo doppler color flow Study Info Indications - Elevated central apnea index Complete two-dimensional, color flow and Doppler transthoracic echocardiogram is performed. Summary 1. Complete two-dimensional, color flow and Doppler transthoracic echocardiogram is performed. 2. Left ventricular chamber dimension is normal. 3. Left ventricular systolic function is normal, estimated at 60-65%. 4. Right ventricular systolic function is normal. 5. Left atrial chamber dimension is mildly enlarged. 6. There is mild mitral valve regurgitation. 7. There is mild tricuspid valve regurgitation. 8. There is small anterior pericardial effusion. Left Ventricle Left ventricular chamber dimension is normal. Left ventricular systolic function is normal, estimated at 60-65%. There is no increased left ventricular wall thickness. The left ventricular diastolic function is indeterminate. Right Ventricle Right ventricular chamber dimension is normal. Right ventricular systolic function is normal. Left Atria Left atrial chamber dimension is mildly enlarged. Right Atria Right atrial chamber dimension is normal. Atrial Septum Intact interatrial septum visualized by color flow imaging. Aortic Valve The aortic valve is trileaflet. There is mild aortic valve sclerosis. There is no aortic valve stenosis. There is no aortic valve regurgitation. Pulmonic Valve The pulmonic valve is not well visualized. There is trace pulmonic regurgitation. Mitral Valve There is mild mitral valve regurgitation. Tricuspid Valve There is mild tricuspid valve regurgitation. Pericardium/Pleural There is small anterior pericardial effusion. Inferior Vena Cava Normal inferior vena cava with >50% collapse upon inspiration consistent with normal right atrial pressure, 3 mmHg. Aorta The aortic root size at the sinus of Valsalva is normal. Left Ventricular Outflow Tract Name Value Normal LVOT 2D LVOT Diameter 2.0 cm LVOT Doppler LVOT Peak Gradient 3 mmHg LVOT Mean Gradient 1 mmHg LVOT VTI 15 cm LVOT VTI/AV VTI Ratio 0.6 LVOT Stroke Volume 47 ml LVOT CO 2.7 l/min LVOT CI 1.3 l/min/m2 Pulmonic Valve Name Value Normal RVOT Doppler RVOT Peak Gradient 2 mmHg
== END 2023-02-02 15:26 | disposition home or self-care (01) ==
PROVIDERS: PCP Family Medicine; Visit Provider Family Medicine
DX: G47.31 Primary central sleep apnea (principal); I34.0 Nonrheumatic mitral (valve) insufficiency; I07.1 Rheumatic tricuspid insufficiency; I31.39 Other pericardial effusion (noninflammatory)
CPT/HCPCS: 93306

== ENCOUNTER 2023-03-29 11:32 | Emergency (ER) | payer MEDICARE, SELFPAY ==
--- NOTE | ~2023-03-29 | XR_ITS ---
EXAMINATION: XR ribs LT 2V DATE: 03/29/2023 12:28 INDICATION: Left rib pain post fall TECHNIQUE: 3 views of the left ribs were obtained. COMPARISON: Chest radiograph dated 03/13/2022 FINDINGS: Nondisplaced fracture of the anterior left ninth rib, potentially also at the anterior left eighth an d 10th ribs. Left lung is clear with no airspace opacities, pulmonary edema, pleural effusion or pneu mothorax. Heart size is normal. Implantable school bus monitor at the medial anterior left chest wall. M ild lower thoracic levocurvature with moderate thoracic spondylosis. Partially visualized L5-S1 poste rior spinal fusion with bilateral vertical albert and pedicle screw fixation. IMPRESSION: 1. Nondisplaced fracture anterior left ninth rib, potentially also of the anterior left eighth and 10 th ribs. 2. No pneumothorax or other acute cardiopulmonary disease in the left hemithorax. Reviewed, dictated and finalized at location A. IMPRESSION: 1. Nondisplaced fracture anterior left ninth rib, potentially also of the anter ior left eighth and 10th ribs. 2. No pneumothorax or other acute cardiopulmonary disease in the left hemithora x.
--- NOTE | 2023-03-29 11:58 | ED.FALL ---
HPI - Fall General Chief Complaint: Fall Stated Complaint: left side pain, fell 03/24/2023 Time Seen by Provider: 03/29/23 12:06 Source: patient Mode of arrival: ambulatory Limitations: no limitations History of Present Illness HPI Narrative: Reena is a 67-year-old female patient presenting to the clinic today with complaints of left side pain after falling 5 days ago. She reports she was putting moves into her car and the car started to roll when she turned and tripped and fell on the left ribs. Is complaining of left lateral lower rib pain. Pain with coughing and sneezing over the left lateral lower ribs Related Data Home Medications Medication Instructions Recorded Confirmed aspirin 81 mg tablet,delayed 81 mg PO HS 09/01/19 12/03/22 release (Adult Low Dose Aspirin) ergocalciferol (vitamin D2) 1,250 1,250 mcg PO DIRECTED 02/12/22 12/03/22 mcg (50,000 unit) capsule apixaban 5 mg tablet (Eliquis) 5 mg PO Q12H 03/13/22 12/03/22 Allergies Allergy/AdvReac Type Severity Reaction Status Date / Time duloxetine Allergy Unknown Unknown Verified 03/29/23 13:00 latex Allergy Unknown Skin Verified 03/29/23 13:00 Reaction nitrofurantoin Allergy Unknown Skin Verified 03/29/23 13:00 Reaction LATEX TAPE Allergy Unknown BROKE OUT Uncoded 03/29/23 13:00 WITH BLISTERS Review of Systems Review of Systems: Pertinent positives per HPI. Patient denies any fever, chills, rash, headache, visual changes, dizziness, cough, runny nose, sore throat, shortness of breath, chest pain, palpitations, nausea, vomiting, diarrhea, constipation, abdominal pain, or any urinary issues. [facility] Past Medical History Medical History Adjustment disorder with anxiety Atrial fibrillation Chronic bilateral low back pain without sciatica DVT of leg (deep venous thrombosis) Gastro-esophageal reflux disease without esophagitis Hyperlipidemia LDL goal <130 Major depressive disorder, recurrent, moderate Surgical History Surgical History H/O: hysterectomy History of back surgery History of bladder surgery Family History Family History Mother Diabetes mellitus Hypertension Family history of elevated blood lipids Carcinoma of colon Colon polyp Father Diabetes mellitus Hypertension Family history of elevated blood lipids Social History Social History Social History: 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 She never smoked. She has 2 children. code status full code Smoking status: Never smoker Second hand tobacco smoke exposure: No Alcohol intake: never Substance use: never Lack of Transportation: No Lack of Food: Never True Current Housing: I Have Housing Concerned About Future Housing: No Difficulty Paying Gas/Electric Bills: No Difficulty Paying for Meds: No Currently Unemployed: No Education: High School Diploma/GED Difficulty w/ Childcare or Family Care: No Living arrangements: with family Spiritual care concerns: No Comments At the time of my signature, I reviewed and agree with the nursing past medical, surgical, social, and family history. There is no relevant family history pertinent to the patient complaint. Exam Narrative: General: Well-developed, well nourished, in no apparent distress Head: Normocephalic, atraumatic. Cardio: Regular rate and rhythm, s1 and s2 normal, no murmur appreciated. Resp: Clear to auscultation bilaterally, no rhonchi, rales, wheezing or rubs. Musculoskeletal: No deformity, tender to palpation over the left lateral lower ribs, grossly normal range of motion, muscle strength strong and equal, peripheral pu
[2023-03-29 12:13] VITALS: BP 123/72; PULSE 93; RESP 20; TEMP 36.8; O2SAT 100
== END 2023-03-29 13:01 | disposition home or self-care (01) ==
PROVIDERS: Emergency Provider Nurse Practitioner Family; PCP Family Medicine
DX: S22.42XA Multiple fractures of ribs, left side, initial encounter for closed fracture (principal); W01.0XXA Fall on same level from slipping, tripping and stumbling without subsequent striking against object, initial encounter; I48.91 Unspecified atrial fibrillation; Z86.718 Personal history of other venous thrombosis and embolism; E78.5 Hyperlipidemia, unspecified; Z79.82 Long term (current) use of aspirin; Z79.01 Long term (current) use of anticoagulants
CPT/HCPCS: 71100; 99213; G0463

== ENCOUNTER → 2023-08-30 07:14 | Outpatient (CLI) | payer MEDICARE, SELFPAY ==
--- NOTE | ~2023-08-30 | MM_ITS ---
EXAMINATION: MM screening [facility] BI w cassy HISTORY: Screening TECHNIQUE: Craniocaudal and mediolateral oblique 3-D tomosynthesis images were obtained and synthetic 2-D images were generated. CAD analysis was submitted and interpreted. COMPARISON: Comparison to multiple prior studies sequentially, with oldest reviewed study dated 04/04. BREAST PARENCHYMAL COMPOSITION: Not dense: There are scattered areas of fibroglandular density. FINDINGS: There is no evidence of suspicious mass, calcification, or architectural distortion to sugg est malignancy in either breast. There has been no suspicious interval change. IMPRESSION: 1. No mammographic evidence of malignancy. 2. Recommend routine screening mammography in one year. BI-RADS Category 1: Negative Reviewed, dictated and finalized at location A. NICAL TRAINING INSTRUCTOR
== END ==
PROVIDERS: PCP Family Medicine; Visit Provider Nurse Practitioner
DX: Z12.31 Encounter for screening mammogram for malignant neoplasm of breast (principal)
CPT/HCPCS: 77063; 77067

== ENCOUNTER 2023-11-18 07:51 | Outpatient (CLI) | payer MEDICARE, SELFPAY ==
--- NOTE | ~2023-11-18 | XR_ITS ---
Right Knee Technique: AP, lateral, and sunrise views were obtained. Clinical History: Pain Findings: No fracture or dislocation is seen. Osseous alignment is anatomic. Minimal patellar spurrin g noted. Soft tissues are unremarkable. No joint effusion is seen. Impression: Minimal patellar spurring. Reviewed, dictated and finalized at location . Impression: Minimal patellar spurring.
== END 2023-11-18 07:52 ==
PROVIDERS: PCP Family Medicine; Visit Provider Family Medicine
DX: M25.761 Osteophyte, right knee (principal); M25.562 Pain in left knee
CPT/HCPCS: 73564

== ENCOUNTER 2024-05-24 10:38 | Outpatient (CLI) | payer MEDICARE, SELFPAY ==
--- NOTE | ~2024-05-24 | US_ITS ---
US pelvic complete Ordering provider: No Gama, OSTRICH FARM WORKER History: . Pelvic pain . Comparison: None. Technique: Transabdominal and endovaginal ultrasound of the pelvis (Doppler ultrasound interrogation techniques used as needed for this exam.) FINDINGS: UTERUS: Surgically removed CUL DE SAC: No free fluid. RIGHT OVARY: Not demonstrated. LEFT OVARY: Not demonstrated. ADNEXA: Normal. No mass. IMPRESSION: Status post hysterectomy. Nonvisualization of the ovaries. Reviewed, dictated and finalized at location A. UNT ADMINISTRATOR
== END 2024-05-24 10:39 | disposition home or self-care (01) ==
LOC: MICIMG 10:39
PROVIDERS: PCP Family Medicine; Visit Provider Nurse Practitioner
DX: R10.2 Pelvic and perineal pain (principal); Z90.710 Acquired absence of both cervix and uterus
CPT/HCPCS: 76856

== ENCOUNTER 2024-10-23 13:46 | Outpatient (CLI) | payer MEDICARE, SELFPAY ==
--- NOTE | ~2024-10-23 | MM_ITS ---
EXAMINATION: MM screening [facility] BI w cassy HISTORY: Screening TECHNIQUE: Craniocaudal and mediolateral oblique 3-D tomosynthesis images were obtained and synthetic 2-D images were generated. CAD analysis was submitted and interpreted. COMPARISON: Comparison to multiple prior studies sequentially, with oldest reviewed study dated 04/04. BREAST PARENCHYMAL COMPOSITION: Not dense: There are scattered areas of fibroglandular density. FINDINGS: There is no evidence of suspicious mass, calcification, or architectural distortion to sugg est malignancy in either breast. There has been no suspicious interval change. IMPRESSION: 1. No mammographic evidence of malignancy. 2. Recommend routine screening mammography in one year. BI-RADS Category 1: Negative Reviewed, dictated and finalized at location B.
== END 2024-10-23 13:47 | disposition home or self-care (01) ==
LOC: MICIMG 13:47
PROVIDERS: PCP Family Medicine; Visit Provider Nurse Practitioner
DX: Z12.31 Encounter for screening mammogram for malignant neoplasm of breast (principal)
CPT/HCPCS: 77063; 77067

== ENCOUNTER 2024-12-12 23:09 | Emergency (ER) | payer MEDICARE, SELFPAY ==
--- NOTE | ~2024-12-12 | CT_ITS ---
Non-contrast Head CT History: Head injury COMPARISON: 03/13/2022 Technique: Axial non-contrast imaging of the brain was performed. Dose reduction technique was used on this scan by utilizing automated exposure control and iterative reconstruction technique. The dose -length product (DLP) was 681.00 mGy-cm. Findings: There is no evidence of intracranial hemorrhage, mass lesion, or acute infarct. Brain par enchyma appears normal. The ventricles and subarachnoid spaces are normal in size. The calvarium ap pears normal. The visualized paranasal sinuses and mastoid air cells are clear. Impression: No significant abnormality seen. Reviewed, dictated and finalized at location . Impression: No significant abnormality seen.
--- NOTE | ~2024-12-12 | CT_ITS ---
Noncontrast CT scan of the cervical spine Technique: Multiple contiguous axial [address] images of the cervical spine were obtained and rec onstructed in 2D sagittal and coronal planes on the acquisition scanner. Dose reduction technique was used on this scan by utilizing automated exposure control, adjustment of the mA and/or kV according to patient size. The dose-length product (DLP) was 379.50 mGy-cm. Clinical History: Pain Findings: No fractures or dislocations. There is minimal reversal of the normal cervical lordosis. T he intervertebral disc spaces are preserved. No prevertebral soft tissue swelling. Impression: No fracture or subluxation of the cervical spine. Minimal reversal of the normal cervical lordosis. Reviewed, dictated and finalized at location . Impression: No fracture or subluxation of the cervical spine. Minimal reversal of the normal cervical lordosis.
[2024-12-12 23:02] VITALS: BP 154/76; PULSE 60; RESP 19; TEMP 36.6; O2SAT 99
[2024-12-12 23:17] VITALS: BP 146/63; PULSE 60; RESP 16; O2SAT 99
[2024-12-12 23:32] VITALS: BP 139/74; PULSE 60; RESP 19; O2SAT 96
[2024-12-12 23:47] VITALS: BP 142/76; PULSE 60; RESP 19; O2SAT 96
[2024-12-13 00:02] VITALS: BP 145/74; PULSE 60; RESP 18; O2SAT 97
--- OUTSIDE RECORDS SUMMARY | 2024-12-13 00:23 | XMS_ITS | Clinical Summary ---
Author Organization [facility] Address [address] [place] [address] Care Team Providers Care Molder Setter Name Role Phone Dillon Mello MD Primary Care Provider [phone] Ben Mittal MD Unavailable [phone] Kevin Parikh MD Unavailable [phone] [facility],non-owned Affiliates and Associated Physician Practices is amultiple site organization consisting of ambulatory clinics and hospital sitesin [place], [place], [place] and [place]. This disclosure is being madepursuant to the Care Everywhere program and may not contain all information available regarding this patient. Last updated 18.[facility] [employer] Allergies Active Allergy Reactions Criticality Noted Date Comments Latex Skin Reactions 09/20/2017 Nitrofurantoin Urticaria Medium 09/20/2017 Medications * Be aware that medications may not be up to date on this document. Alwaysverify current medications with the patient. atorvastatin (LIPITOR) 40 MG tablet TK 1 T PO ONCE A DAY 0 08/13/2017 Active omeprazole (PRILOSEC) 20 MG capsule TK 1 C PO D 3 07/13/2017 Active sertraline (ZOLOFT) 100 MG tablet TK 1 T PO QD 3 08/23/2017 Active aspirin (ASPIRIN 81) 81 MG chew tablet Take 81 mg by mouth once daily Active ibuprofen (MOTRIN) 600 MG tablet Take 1 tablet by mouth every 8 hours as needed for Pain 60 tablet 11/04/2017 Active traMADol (ULTRAM) 50 MG tablet TK 1 T PO Q 6 H PRN P 1 01/24/2018 Active diclofenac sodium EC (VOLTAREN) 75 MG tablet TK 1 T PO BID 1 02/14/2018 Active Active Problems Problem Noted Date Diagnosed Date Hypercholesteremia Depression Back pain h/o DVT after back surgery GERD (gastroesophageal reflux disease) Resolved Problems Problem Noted Date Diagnosed Date Resolved Date KYRA (stress urinary incontinence, female) 11/18/2017 Urge incontinence of urine 0 11/18/2017 POP-Q stage 3 cystocele 11/09 POP-Q stage 2 rectocele 11/09 Social History Tobacco Use Types Packs/Day Years Used Date Smoking Tobacco: Never Smokeless Tobacco: Never Alcohol Use Standard Drinks/Week Comments No 0 (1 standard drink = 0.6 oz pur e alcohol) Comments No Sex and Gender Information Value Date Recorded Sex Assigned at Not on file Legal 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 Gender Identity Not on file Sexual Orientation Not on file Last Filed Vital Signs Vital Sign Reading Time Taken Comments Blood Pressure 114/62 05/23/2018 9:09 AM LEAD SYSTEMS ENGINEER Pulse 69 11/04/2017 11:10 AM CDT Temperature 37 C (98.6 F) 11/04/2017 11:10 AM CDT Respiratory Rate 16 11/04/2017 11:10 AM CDT Oxygen Saturation 98% 11/04/2017 11:10 AM CDT Inhaled Oxygen Concentration - - Weight 80.3 kg (177 lb) 05/23/2018 9:09 AM LEAD SYSTEMS ENGINEER Height 167.6 cm (5' 6) 05/23/2018 9:09 AM LEAD SYSTEMS ENGINEER Body Mass Index 28.57 05/23/2018 9:09 AM LEAD SYSTEMS ENGINEER Plan of Treatment Health Maintenance Due Date Last Done Comments BONE DENSITY TESTING 1957 COLOGUARD (AGES 45-75) - COL ON CA SCREENING 1957 COLON MONITORING 1957 COLONOSCOPY - COLON CA SCREENING 1957 CT COLONOGRAPHY - COLON CA SCREENING 1957 Colorectal Cancer Screening 1957 FIT - COLON CA SCREENING 1957 FLEX SIG - COLON CA SCREENING 1957 HEPATITIS C SCREENING 09/03/1975 DTAP/TDAP/TD VACCINES (1 - Tdap) 1976 PNEUMOCOCCAL VACCINE 50+ (1 of 1 - PCV) 2007 ZOSTER VACCINE (1 of 2) 2007 SCREENING FOR DIABETES 09/20/2017 COVID-19 VACCINE (2023-2 5 season) 2024 DEPRESSION SCREENING 07/12/2024 INFLUENZA VACCINE (Season Ended) 2025 Respiratory Syncytial Virus (RSV) Vaccine Pt: or over 60 yrs (1 - 1-dose 75+ series) 2032 HEPATITIS B VACCINE Aged Out No longe r eligible based on patient's age to complete this topic HIB VACCINE Aged Out No longer eligi ble based on patient's age to complete this topic HPV VACCINE Aged Out No longer eligi ble based on patient's age to complete this topic MAMMOGRAM Discontinued MENINGOCOCCAL (Group B) VACC INE SHARED DECISION-MAKING Aged Out No longer eligibl e based on patient's age to complete this topic MENINGOCOCCAL GROUPS A/C/Y/W VACCINE Aged Out No longer eligible b ased on patient's age to complete this topic Medical Devices Implanted Type Area Book Salesman Device Identifier Shelf Expiration Date Model / Serial / Lot Sys Ureth Supp Obtryx Midurethral Trnstr Implanted:Qty: 1 on 11/03/2017 by Ben Mittal MD at [facility] N/A: Vagina [employer] 08/17/2020 [id number] / / [id number] Insurance [employer] MEDICARE Advance Directives * Full Code (Latest Code Status on File) Date Activated Date Inactivated Comments 11/03/2017 3:52 PM 11/04/2017 1:26 PM * Full Code Date Activated Date Inactivated Comments 11/03/2017 2:42 PM 11/03/2017 3:52 PM Care Teams Molder Setter Relationship Specialty Start Date End Date Dillon Mello MD [address] [place] [address] PCP - General Family Medicine 09/20/17 Ben Mittal MD [address] [place] [address] Consulting Physician Obstetrics and Gynecology 09/20/17 Kevin Parikh MD [address] [place] [address] Television Script Writer Obstetrics and Gynecology 09/20/17
--- OUTSIDE RECORDS SUMMARY | 2024-12-13 00:24 | XMS_ITS | Continuity of Care Document ---
Author Organization [facility] Address [id number] [place] [address] [address] [place] [address] Phone Care Team Providers Care Careers Counsellor Name Role Phone Antonio Sam MD Unavailable Unavailable Procedures Procedure Date OFFICE/OUTPATIENT VISIT, [facility] OPHTHALMIC BIOMETRY RT OPHTHALMIC BIOMETRY Advance Directives Directive Yes / No Effective Date File Name No Information Encounters Encounter Description Practice Location Reason(s) For Visit Diagnoses Date Provider Providers Copied on Encounter OFFICE/OUTPAT IENT VISIT, [facility], [id number] [place], [place] [address] [address], [place], [place], [id number], tel:[phone] [phone] [place] No Information [address] Al[address]. [id number] [place] [address], [address], [place], [place], [id number], [place]. tel:[phone] Family History Family Member Type Diagnosis Age At Onset No Information Payers Payer name Insurance type Covered green party ID Authoriza tion(s) [employer] PPO CI [id number] Social History Type Description Quantity Date Captured [...]
--- OUTSIDE RECORDS SUMMARY | 2024-12-13 00:24 | XMS_ITS | Encounter Summary ---
Author Organization [facility] Healthcare Address [address] [place] [address] Care Team Providers Care Clarifier Name Role Phone Claudia Lamar DO Primary Care Provider + Mckay Braxton MD Unavailable Encounter Details Date Type Department Care Team (Late st Contact Info) Description 10/19/2024 Results Follow-Up [facility] Medical Group Cardiology [address] [place] [address] Tran Seymour NP [address] [place] [address] CBC with auto differential, Comprehensive metabolic panel Social History Tobacco Use Types Packs/Day Years Used Date Smoking Tobacco: Never Cigarettes Smokeless Tobacco: Never [facility] Utilities Answer Date Recorded In the past 12 months has [place], gas, oil, or water APS threatened to shut off services in your home? No 07/24/2024 Social Connection and Isolat ion Panel [NHANES] Answer Date Recorded In a typical week, how many times do you talk on the phone with family, friends, or neighbors? More than three times a week 07/24/2024 How often do you get togethe r with friends or relatives? More than three times a week 07/24/2024 How often do you attend [facility] or alevism services? 1 to 4 times per year 07/24/2024 Do you belong to any clubs o r organizations such as anabaptist groups, unions, fraternal or athletic groups, or school groups? No 07/24/2024 How often do you attend meet ings of the clubs or organizations you belong to? Never 07/24/2024 Are you , , di vorced, , never , or living with a partner? 07/24/2024 AUDIT-C Answer Date Recorded Q1: How often do you have a drink containing alcohol? Never 06/19/2024 Q2: How many drinks containi ng alcohol do you have on a typical day when you are drinking? Patient does not drink Q3: How often do you have si x or more drinks on one occasion? Never 06/19/2024 Overall Financial Resource Strain (CARDIA) Answe r Date Recorded How hard is it for you to pa y for the very basics like food, housing, medical care, and heating? Not hard at all 07/24/2024 Hunger Vital Sign Answer Date Recorded Within the past 12 months, y ou worried that your food would run out before you got the money to buy more. Never true 07/24/19 25 Within the past 12 months, t he food you bought just didn't last and you didn't have money to get more. Never true 07/24/2024 PRAPARE - Transportation Answer Date Re corded In the past 12 months, has l ack of transportation kept you from medical appointments or from getting medications? No 07/12 In the past 12 months, has l ack of transportation kept you from meetings, work, or from getting things needed for daily living? No 07/24/2024 Housing Stability Vital Sign Answer [place] e Recorded In the last 12 months, was t here a time when you were not able to pay the mortgage or rent on time? No 07/24/2024 In the past 12 months, how m any times have you moved where you were living? 0 07/24/2024 [facility] were you [facility] or living in a [facility] (including now)? No 07/24/2024 Personal Safety Answer Date Recorded Have you ever been in or are you currently in a harmful physical or emotional relationship or is someone making you feel afraid or unsafe? 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 Contact: documented in this encounter Plan of Treatment Not on file documented as of this encounter Visit Diagnoses Not on filedocumented in this encounter Care Teams Clarifier Relationship Specialty Start Date End Date Claudia Lamar DO PCP - General Family Medicine 02/19/22 Mckay Braxton MD [address] [place] [address] Consulting Physician Cardiology 06/05/24 documented as of this encounter
--- OUTSIDE RECORDS SUMMARY | 2024-12-13 00:24 | XMS_ITS | Referral Summary ---
Author Organization [facility] [address] [place] [address] [address] [place] [address] Care Team Providers Care Specialist Field Engineer Name Role Phone WillardTiffanyClaudia Kayla GONZALEZ Primary Care Provider + John Braxton MD Unavailable [phone] Encounters Date Type Department Care Team Description 11/21/2024 7:15 AM CDT Ancillary Procedure [facility] [address] [place] [address] [place] [phone] Paroxysmal atrial fibrillation (HCC) 11/16/2024 10:15 AM CDT Office Visit [facility] at [address] [place] [address] John Braxton MD Paroxysmal atrial fibrillation (HCC) (Primary Dx); Cardiomyopathy, idiopathic (HCC); Automatic implantable cardiac defibrillator in situ; Lipid screening 11/10/2024 1:00 PM CDT Ancillary Procedure [facility] [address] [place] [address] [place] [phone] Acute on chronic congestive heart failure, unspecified heart failure type (HCC); Heart failure, unspecified HF chronicity, unspecified heart failure type (HCC); Paroxysmal atrial fibrillation (HCC) 10/30/2024 Telephone [facility] [address] [facility] [address] [place] [address] John Braxton MD 10/19/2024 Results Follow-Up [facility] [address] [place] [address] Tran Seymour, AGUILA CBC with auto differential, Comprehensive metabolic panel 10/16/2024 2:30 PM CDT Office Visit [facility] [address] [place] [address] [address] [place] [phone] Dizziness (Primary Dx) 10/16/2024 Telephone [facility] [address] [place] [address] John Braxton MD from Last 3 Months Allergies Active Allergy Reactions Criticality Noted Date Comments Latex Hives,Rash Medium 01/16/2013 Nitrofurantoin Urticaria Medium 09/20/2017 Medications omeprazole (PriLOSEC) 20 mg capsule Take 1 capsule (20 mg total) by mouth daily 11/20/19 21 Active sertraline (ZOLOFT) 100 mg tablet Take 1 tablet (100 mg total) by mouth daily 12/12/19 21 Active albuterol HFA (PROVENTIL HFA,VENTOLIN HFA,PROAIR HFA) 90 mcg/actuation inhaler 2 puffs every 4 (four) hours as needed for wheezing or shortness of breath 07/19/19 24 Active ergocalciferol (VITAMIN D) 50,000 unit capsule Take 1 capsule (50,000 Units total) by mouth once a week TAKES FOR 3 WEEKS AND THEN STOP FOR A WEEK 09/25/19 24 Active apixaban (Eliquis) 5 mg tablet TAKE 1 TABLET BY MOUTH TWICE A DAY 180 tablet 2 01/25/20 24 Active loperamide (IMODIUM) 2 mg capsule Take 1 capsule (2 mg total) by mouth 4 (four) times a day as needed for diarrhea 30 capsule 07/28/19 25 Active cyanocobalamin (Vitamin B-12) 1,000 mcg tabletIndicatio ns:Prevention of Vitamin B12 Deficiency Take 1 tablet (1,000 mcg total) by mouth daily 30 tablet 07/28/19 25 026 Active meclizine (ANTIVERT) 12.5 mg tablet Take 1 tablet (12.5 mg total) by mouth 3 (three) times a day as needed for dizziness 30 tablet 1 07/28/19 25 Active metoprolol XL (TOPROL-XL) 25 mg extended release tablet Take 1 tablet (25 mg total) by mouth daily 90 tablet 1 08/23/19 25 026 Active traMADoL (ULTRAM) 50 mg tablet Take 1 tablet (50 mg total) by mouth every 6 (six) hours as needed 10/06/19 25 Active midodrine (PROAMATINE) 2.5 mg tablet TAKE 1 TABLET BY MOUTH 3 TIMES A DAY. 270 tablet 3 11/25/19 25 Active amiodarone (PACERONE) 400 mg tablet Take 0.5 tablets (200 mg total) by mouth daily 08/15/19 25 025 Discontinued( erapy completed) midodrine (PROAMATINE) 2.5 mg tabletIndicatio ns:Symptomatic Orthostatic Hypotension Take 1 tablet (2.5 mg total) by mouth 3 (three) times a day 90 tablet 11/03/19 25 025 Discontinued Active Problems Problem Noted Date Diagnosed Date Automatic implantable cardiac defibrillator in s itu 07/28/2024 Overview (07/28/2024): Jose J Laird Dual ICD. Dx; CM, PM-VT, Sinus Node Dysfunction, Bradycardia, PAF. DOI 06/29/2024-Carl. Secondary Prevention. 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 Dx; PAF. DOI 06/08/2022- Darby Smartronik remote home monitoring. Exertional dyspnea 07/01/2021 Paroxysmal atrial fibrillation 12/19/2020 Immunizations Immunization Administration Dates Next Due Cristian (J&J) SARS-CoV-2 Vaccination 09/17/2020 Social History Tobacco Use Types Packs/Day Years Used Date Smoking Tobacco: Never Smokeless Tobacco: Never Tobacco Cessation:Counseling Given: Not Answered [facility] Utilities Answer Date Recorded In the past 12 months has [employer] electric, gas, oil, or water company threatened to shut off services in your [...] week 07/24/2024 How often do you attend chur ch or buddhist services? 1 to 4 times per year 07/24/2024 Do you belong to any clubs o r organizations such as sikhism groups, unions, fraternal or athletic groups, or [...] any time in the past 12 m [facility], were you homeless or living in a residential (including now)? No 07/24/2024 Personal Safety Answer Date Recorded Have you ever been in or are you currently in a harmful physical or emotional relationship or is someone making you feel afraid or unsafe? Denies 07/23/2024 Comments No Sex and Gender Information Value Date Recorded Sex Assigned at Not on file Legal Sex Female 3:42 AM MANAGER OF NETWORK Gender Identity Female 07/29/2021 9:23 AM MANAGER OF NETWORK Sexual Orientation Not on file Last Filed Vital Signs Vital Sign Reading Time Taken Comments Blood Pressure 126/82 11/16/2024 10:19 AM CDT Pulse 60 11/16/2024 10:19 AM CDT Temperature 36.7 C (98.1 F) 07/28/2024 7:28 AM MANAGER OF NETWORK Respiratory Rate 16 07/28/2024 7:28 AM MANAGER OF NETWORK Oxygen Saturation 97% 11/16/2024 10:19 AM CDT Inhaled Oxygen Concentration - - Weight 81.2 kg (179 lb) 11/16/2024 10:19 AM CDT Height 167.6 cm (5' 6) 11/16/2024 10:19 AM CDT Body Mass Index 28.89 11/16/2024 10:19 AM CDT Plan of Treatment Not on file Medical Devices Implanted Type Area Seat Nailer Device Identifier Shelf Expiration Date Model / Serial / Lot Cage Cage N/A: Back Implantable Loop Recorder Implantable Loop Recorder Left: Chest [employer] Durata 6.8fr 65cm True Bipolar Active Fixation Extendable 1 Coil [id number]/65 - [id number] Implanted:Qty : 1 on 06/29/2024 by Abraham Alvarado MD at [facility] Lead [employer] 03/11/2027 [id number]/65 / / Pin Pin N/A: Back Screw Screw N/A: Back Lonny N/A: Back [employer] Vascade Mvp 6-12fr Venous Closure [id number] - [id number] Implanted:Qty : 1 on 06/19/2024 by Abraham Alvarado MD at [facility] [employer] 02/14/2026 800-612C -[id number] / / [id number] [employer] Vascade Mvp 6-12fr Venous Closure [id number] - [id number] Implanted:Qty : 1 on 06/19/2024 by Abraham Alvarado MD at [facility] [employer] 02/14/2026 800-612C -[id number] / / [id number] [employer] Vascade Mvp 6-12fr Venous Closure [id number] - [id number] Implanted:Qty : 1 on 06/19/2024 by Abraham Alvarado MD at [facility] [employer] 02/14/2026 800-612C -[id number] / / [id number] [employer] Angio-Seal Vip 6fr Closere Device [id number] - [id number] Implanted:Qty : 1 on 06/28/2024 by Ron Davis MD at [facility] Right: Common Femoral Artery [employer] Jenny [id number] / / Lux Vascular Active Fixation Steroid Eluting Latex Free Sterile Right Atrium Ventricle Ultipace 52cm [id number] - [id number] Implanted:Qty : 1 on 06/29/2024 by Abraham Alvarado MD at [facility] [employer] 05/11/2027 [id number] / / Lux [employer] Defib Cardiac [id number] [place] Implantable 2 Chamber [id number] - [id number] - [id number] Implanted:Qty : 1 on 06/29/2024 by Abraham Alvarado MD at [facility] [employer] [id number] 01/08/2026 [id number] / [id number] / Procedures Procedure Name Priority Date/Time Associated Diagnosis Comments POCT LIPID PANEL Routine 11/16/2024 10:1 4 AM CDT Lipid screening TRANSTHORACIC ECHO (TTE) LIMITED/FOLLOW UP W LTD DOPPLER/CF WO CONTRAST Routine 11/10/2024 1:46 PM CDT Acute on chronic congestive heart failure, unspecified heart failure type (HCC) Heart failure, unspecified HF chronicity, unspecified heart failure type (HCC) Paroxysmal atrial fibrillation (HCC) COMPREHENSIVE METABOLIC PANEL Routine 10/18/2024 9:23 AM CDT High risk medication use Hypotension, unspecified hypotension type CBC WITH AUTO DIFFERENTIAL Routine 10/18/2024 9:23 AM CDT High risk medication use Hypotension, unspecified hypotension type SCREENING MAMMOGRAM BILATERAL W SUMIT 10/20/2018 7:38 AM CDT from Last 3 Months or Most Recently Relevant to Health Maintenance Results * (ABNORMAL) POCT lipid panel (11/16/2024 10:14 AM CDT) Cholesterol, POC 303 <200 MG/DL HDL, POC 57 >=40 mg/dL Triglycerides, POC 157(A) <=149 mg/dL LDL Cholesterol POC 214(A) <=129 mg/dL Chol/HDL Ratio, POC 5.3 NONE Non-HDL Cholesterol, POC 245 NONE mg/dL Cholesterol Total, POC 303(A) 30 - 199 mg/dL Capillary blood 11/16/2024 1 0:14 AM CDT us John Braxton MD POINT OF CARE TEST ORDER BROOKE Final Result * TRANSTHORACIC ECHO (TTE) LIMITED/FOLLOW UP W LTD DOPPLER/CF WO CONTRAST (11/10/2024 1:46 PM CDT) EF Mod BP 73 % CONS SCIMAGE Anatomical Region Laterality Modality Ultrasound 11/10/2024 1:21 PM CDT Narrative 11/10/2024 11:[address] [facility] Cardiology [address], [place] [address] [address] [facility] [address], [place] [address] P:[phone] P:[phone] Echocardiographic Report Patient Name: REENA CM M : 1955 Study Date: 11/10/2024 1:21:56 PM Gender: F Tech: [facility] Location: [facility] Provider: JOHN BRAXTON Height(Cm): 168 BSA: 1.95 Weight(Kg): 81.2 Heart Rate: 60 BP: 90 / 60 Quality: Good Order Provider: JOHN BRAXTON PROCEDURES: Echocardiographic Report: Limited Transthoracic echocardiogram with 2D, M-Mode, examination. INDICATIONS: Re-eval LV function, Atrial Fibrillation, and Congestive Heart Failure. MEASUREMENTS: 2D/MM Value Range Doppler Value Range EF Mod BP 73 % [ 54 - 74 ] LVOT Diam 2.00 cm [ 1.70 - 2.10 ] EF Teich MM 78 % [ 54 - 74 ] LVIDd MM 4.38 cm [ 3.80 - 5.20 ] LVIDs MM 2.36 cm [ 2.20 - 3.50 ] LVPWd MM 1.30 cm [ 0.60 - 0.90 ] IVSd MM 1.04 cm [ 0.60 - 0.90 ] LA Dimension 2D 3.46 cm [ 2.70 - 3.80 ] LA Dimension MM 3.58 cm [ 2.70 - 3.80 ] AoR Diam 2D 3.10 cm [ 2.70 - 3.70 ] AoR Diam MM 3.49 cm [ 2.70 - 3.70 ] ACS MM 0.00 cm 2D/MM Value Range Doppler Value Range - FINDINGS: Interpretation Site: Exam was interpreted at [facility]. Left Ventricle: Normal left ventricular systolic function. No focal wall motion abnormalities. Normal left ventricular size. Normal left ventricular wall thickness. Ejection fraction is measured at 73 %. Global Longitudinal Strain is -17 %. GLS is abnormal. Right Ventricle: Normal right ventricular size. Normal right ventricular systolic function. Left Atrium: The left atrium is normal in size. Right Atrium: The right atrium is normal in size. Atrial Septum: The atrial septum is not well visualized. Mitral Valve: Normal appearance of the mitral valve. Aortic Valve: Normal appearance of the aortic valve. Trileaflet aortic valve. Tricuspid Valve: Normal appearance of the tricuspid valve. Pulmonic Valve: Normal appearance of the pulmonic valve. Pericardium: There is an anterior echo free space consistent with epicardial fat pad. Aorta: Sinus of Valsalva is normal. IVC: Normal size and normal respiratory collapse consistent with normal right atrial pressure (<5 mmHg). Pulmonary Artery: Normal pulmonary artery size. CONCLUSIONS: Normal left ventricular systolic function. No focal wall motion abnormalities. Normal left ventricular size. Normal left ventricular wall thickness. Ejection fraction is measured at 73 %. Global Longitudinal Strain is -17 %. GLS is abnormal. Electronically Signed By: Dr. Jose Mtez [facility] 11/10/2024 11:20:32 PM CDT Procedure Note Jose Metz MD - 11/10/2024 [facility] Cardiology [address], [place] [address] [address] [facility] [id number], [place] [address] P:[phone] P:[phone] Echocardiographic Report Patient Name: REENA MC M : 1955 Study Date: 11/10/2024 1:21:56 PM Gender: F Tech: [facility] Location: [facility] Provider: JOHN BRAXTON Height(Cm): 168 BSA: 1.95 Weight(Kg): 81.2 Heart Rate: 60 BP: 90 / 60 Quality: Good Order Provider: JOHN BRAXTON PROCEDURES: Echocardiographic Report: Limited Transthoracic echocardiogram with 2D, M-Mode, examination. INDICATIONS: Re-eval LV function, Atrial Fibrillation, and Congestive Heart Failure. MEASUREMENTS: 2D/MM Value Range Doppler ValueRange EF Mod BP 73 % [ 54 - 74 ] LVOT Diam 2.00 cm [1.70 - 2.10 ] EF Teich MM 78 % [ 54 - 74 ] LVIDd MM 4.38 cm [ 3.80 - 5.20 ] LVIDs MM 2.36 cm [ 2.20 - 3.50 ] LVPWd MM 1.30 cm [ 0.60 - 0.90 ] IVSd MM 1.04 cm [ 0.60 - 0.90 ] LA Dimension 2D 3.46 cm [ 2.70 - 3.80 ] LA Dimension MM 3.58 cm [ 2.70 - 3.80 ] AoR Diam 2D 3.10 cm [ 2.70 - 3.70 ] AoR Diam MM 3.49 cm [ 2.70 - 3.70 ] ACS MM 0.00 cm 2D/MM Value Range Doppler ValueRange - FINDINGS: Interpretation Site: Exam was interpreted at [facility]. Left Ventricle: Normal left ventricular systolic function. No focal wall motionabnormalities. Normal left ventricular size. Normal left ventricular wall thickness. Ejectionfraction is measured at 73 %. Global Longitudinal Strain is -17 %. GLS is abnormal. Right Ventricle: Normal right ventricular size. Normal right ventricular systolicfunction. Left Atrium: The left atrium is normal in size. Right Atrium: The right atrium is normal in size. Atrial Septum: The atrial septum is not well visualized. Mitral Valve: Normal appearance of the mitral valve. Aortic Valve: Normal appearance of the aortic valve. Trileaflet aortic valve. Tricuspid Valve: Normal appearance of the tricuspid valve. Pulmonic Valve: Normal appearance of the pulmonic valve. Pericardium: There is an anterior echo free space consistent with epicardial fat pad. Aorta: Sinus of Valsalva is normal. IVC: Normal size and normal respiratory collapse consistent with normal rightatrial pressure (<5 mmHg). Pulmonary Artery: Normal pulmonary artery size. CONCLUSIONS: Normal left ventricular systolic function. No focal wall motionabnormalities. Normal left ventricular size. Normal left ventricular wall thickness. Ejectionfraction is measured at 73 %. Global Longitudinal Strain is -17 %. GLS is abnormal. Electronically Signed By: Dr. Jose Metz [facility] 11/10/2024 11:20:32 PM CDT John Braxton MD CV ECHO PROCEDURES Final Result * (ABNORMAL) CBC with auto differential (10/18/2024 9:23 AM CDT) WBC 5.6 3.8 - 10.8 Thousand/u L [facility] RBC, POC 4.92 3.80 - 5.10 Million/uL [facility] Hgb 14.7 11.7 - 15.5 g/dL [facility] Hct 45.8(H) 35.0 - 45.0 % [facility] MCV 93.1 80.0 - 100.0 fL [facility] MCH 29.9 27.0 - 33.0 pg [facility] MCHC 32.1 32.0 - 36.0 g/dL [facility] Comment: For adults, a slight decrease in the calculated MCHC value (in the range of 30 to 32 g/dL) is most likely not clinically significant; however, it should be interpreted with caution in correlation with other red cell parameters and the patient's clinical condition. Rdw 14.3 11.0 - 15.0 % [facility] Platelets 356 140 - 400 Thousand/u L [facility] MPV 9.4 7.5 - 12.5 fL [facility] Neutrophils, abs 3,763 1,500 - 7,800 cells/uL [facility] Lymphocytes, abs 1,176 850 - 3,900 cells/uL [facility] Monocyte abs 420 200 - 950 cells/uL [facility] Eosinophils, abs 190 15 - 500 cells/uL [facility] Basophils, abs 50 0 - 200 cells/uL [facility] Neutrophils 67.2 % [facility] Lymphocyte pct 21.0 % [facility] Monocytes 7.5 % [facility] Eosinophils 3.4 % [facility] Basophils 0.9 % [facility] Blood 10/18/2024 9:23 AM CDT 10/18/2024 9:24 AM CDT Narrative [facility] - 10/18/2024 4:51 PM CDT FASTING:YES FASTING: YES Tran Seymour NP LAB BLOOD ORDERABLES Poonam jasso Result [facility] [address] [place] [address] * (ABNORMAL) Comprehensive metabolic panel (10/18/2024 9:23 AM CDT) [facility] Glucose 105(H) 65 - 99 mg/dL [facility] Comment: Fasting reference interval For someone without known diabetes, a glucose value between 100 and 125 mg/dL is consistent with prediabetes and should be confirmed with a follow-up test. BUN 22 7 - 25 mg/dL [facility] Creatinine 1.28(H) 0.50 - 1.05 mg/dL [facility] eGFR 46(L) > OR = 60 mL/min/1.7 3m2 [facility] BUN/creat ratio 17 6 - 22 (calc) [facility] Sodium 137 135 - 146 mmol/L [facility] Potassium, pl 4.7 3.5 - 5.3 mmol/L [facility] Chloride 100 98 - 110 mmol/L [facility] CO2 28 20 - 32 mmol/L [facility] Calcium 9.4 8.6 - 10.4 mg/dL [facility] Protein, sr 6.6 6.1 - 8.1 g/dL [facility] Albumin 3.9 3.6 - 5.1 g/dL [facility] GLOBULIN 2.7 1.9 - 3.7 g/dL (calc) [facility] Alb/glob ratio 1.4 1.0 - 2.5 (calc) [facility] Bilirubin, total 0.4 0.2 - 1.2 mg/dL [facility] Alk phos 77 37 - 153 U/L [facility] AST 29 10 - 35 U/L [facility] ALT (SGPT) 24 6 - 29 U/L [facility] Blood 10/18/2024 9:23 AM CDT 10/18/2024 9:24 AM CDT Narrative [facility] - 10/18/2024 4:51 PM CDT FASTING:YES FASTING: YES Tran Seymour NP LAB BLOOD ORDERABLES Poonam l Result [facility] [address] [place] [address] * Screening Mammogram Bilateral W Sumit (10/20/2018 7:38 AM CDT) Anatomical Region Laterality Modality Breast Bilateral Mammography 10/20/2018 7:53 AM CDT Narrative 10/20/2018 10:38 AM CDT Patient Name: REENA MC Ordering Dr: Pedro Luis Mello MD D.O.B: 1955 Exam Date: 10/20/18 0738 Age: 63 Sex: Female MR#: [id number] Loc: RADIOLOGY REPORT Order #[id number] [facility] Rm Bilat Screening 3D Signed - MG BILATERAL DIGITAL SCREENING MAMMOGRAM 3D/2D WITH MEDIOLATERAL OBLIQUE CRANIOCAUDAL: 10/20/2018 The study was acquired using full field digital technology and interpreted from soft copy. 2D digital mammographic views, as well as 3D digital tomosynthesis were performed in the CC and MLO projections. CLINICAL: Routine mammogram. Denies any problems today. No personal history of breast cancer. No family history of breast cancer. COMPARISONS: Comparison is made to exams dated: 10/11/2017 mammogram, 10/05/2016 mammogram, and 09/24/2015 mammogram - [facility]. BREAST TISSUE: There are scattered areas of fibroglandular density. FINDINGS: No significant masses, calcifications, or other findings are seen in either breast. There has been no significant interval change. IMPRESSION: BI-RAD 1 NEGATIVE There is no mammographic evidence of malignancy. A 1 year screening mammogram is recommended. The patient has been or will be contacted. We recommend annual screening mammography for women at average risk of breast cancer beginning at age 40, based on guidelines of the [employer] (ACR Practice Parameter for the Performance of Screening and Diagnostic Mammography) and [place] [employer]. For women with an elevated risk of breast cancer, please refer to the ACR Practice Parameter for specific screening recommendations. The patient will be entered into a reminder system with a target due date of 1 year for her next screening exam. Electronically signed by: Abraham munson/iesha:10/20/2018 10:38:53 Dumping Machine Operator: Reva LAUGHLIN (R)), [facility] letter sent: Normal Exam Reading location: [facility] BI-RADS: 1 Negative REPORT ELECTRONICALLY SIGNED IN OTHER VENDOR SYSTEM Resulting Agency Comment O Procedure Note Abraham Winkler MD - 10/20/2018 Patient Name: REENA MC Dr: Pedro Luis Mello MD D.O.B: 1955 Exam Date: 10/20/18 0738 Age: 63 Sex: Female MR#: [id number] Loc: RADIOLOGY REPORT Order #[id number] [facility] Rm Bilat Screening 3D Signed - MG BILATERAL DIGITAL SCREENING MAMMOGRAM 3D/2D WITH MEDIOLATERAL OBLIQUE CRANIOCAUDAL: 10/20/2018 The study was acquired using full field digital technology andinterpreted from soft copy. 2D digital mammographic views, as well as 3D digital tomosynthesis were performed in the CC and MLO projections. CLINICAL: Routine mammogram. Denies any problems today. No personalhistory of breast cancer. No family history of breast cancer. COMPARISONS: Comparison is made to exams dated: 10/11/2017 mammogram,10/05/2016 mammogram, and 09/24/2015 mammogram - [facility]. BREAST TISSUE: There are scattered areas of fibroglandular density. FINDINGS: No significant masses, calcifications, or other findings areseen in either breast. There has been no significant interval change. IMPRESSION: BI-RAD 1 NEGATIVE There is no mammographic evidence of malignancy. A 1 year screeningmammogram is recommended. The patient has been or will be contacted. We recommend annual screening mammography for women at average risk ofbreast cancer beginning at age 40, based on guidelines of the [employer] [employer] (ACR Practice Parameter for the Performance of Screening and Diagnostic Mammography) and [place] [employer]. For women with an elevated risk of breast cancer, pleaserefer to the ACR Practice Parameter for specific screening recommendations. The patient will be entered into a reminder system with a target due dateof 1 year for her next screening exam. Electronically signed by: Abraham munson/iesha:10/20/2018 10:38:53 Dumping Machine Operator: Reva MONZON)(Vanessa), [facility] letter sent: Normal Exam Reading location: [facility] BI-RADS: 1 Negative REPORT ELECTRONICALLY SIGNED IN OTHER VENDOR SYSTEM [facility] Chepe Mello MD IMG MAMMO PROCEDURES Final Resul t from Last 3 Months or Most Recently Relevant to Health Maintenance Insurance [employer] MEDICARE GOLD Advance Directives For more information, please contact: [phone] Documents on File Type Date Recorded Patient [employer] L[employer] Expl anation Power of Receivable Clerk 06/19/2024 7:34 AM * Full Code (Latest Code Status on File) Date Activated Date Inactivated Comments 07/23/2024 10:33 PM 07/28/2024 5:30 PM * Full Code Date Activated Date Inactivated Comments 06/23/2024 6:51 PM 06/30/2024 6:35 PM * Full Code Date Activated Date Inactivated Comments 06/19/2024 6:36 PM 06/20/2024 5:22 PM Care Teams Specialist Field Engineer Relationship Specialty Start Date End Date Claudia Lamar DO PCP - General Family Medicine 02/19/22 John Braxton MD [address] [facility] [address] [place] [address] Consulting Physician Cardiology 06/05/24
--- OUTSIDE RECORDS SUMMARY | 2024-12-13 00:24 | XMS_ITS | Clinical Summary ---
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 Dx; PAF. DOI 06/08/2022- Biotronik remote home monitoring. Exertional dyspnea 07/01/2021 Paroxysmal atrial fibrillation 12/19/2020 Encounters Date Type Department Care Team Description 11/21/2024 7:15 AM CDT Ancillary Procedure [facility] Cardiology [address] [place] [address] [place] [phone] Paroxysmal atrial fibrillation (HCC) 11/16/2024 10:15 AM CDT Office Visit [facility] Cardiology at [address] [place] [phone] John Braxton MD Paroxysmal atrial fibrillation (HCC) (Primary Dx); Cardiomyopathy, idiopathic (HCC); Automatic implantable cardiac defibrillator in situ; Lipid screening 11/10/2024 1:00 PM CDT Ancillary Procedure [facility] Cardiology [address] [place] [address] [place] [phone] Acute on chronic congestive heart failure, unspecified heart failure type (HCC); Heart failure, unspecified HF chronicity, unspecified heart failure type (HCC); Paroxysmal atrial fibrillation (HCC) 10/30/2024 Telephone [facility] Cardiology [address] [place] [address] [address] [place] [phone] John Braxton MD 10/19/2024 Results Follow-Up [facility] Cardiology [address] [place] [address] [place] [phone] Tran Seymour NP CBC with auto differential, Comprehensive metabolic panel 10/16/2024 2:30 PM CDT Office Visit [facility] Cardiology [address] [place] [phone] Dizziness (Primary Dx) 10/16/2024 Telephone [facility] Cardiology [address] [place] [phone] John Braxton MD from Last 3 Months Immunizations Immunization Administration Dates Next Due Cristian (J&J) SARS-CoV-2 Vaccination 09/17/2020 Surgical History Surgery Date Site/Laterality Comments EPIDURAL INJECTION LUMBOSACRAL 10/31/2012 N/A EPIDURAL INJECTION LUMBOSACRAL 10/13/2012 N/A BLADDER SURGERY HYSTERECTOMY SPINE SURGERY Back 2012 TUBAL LIGATION 80 s LASIK CATARACT EXTRACTION 2023 Medical History Medical History Date Comments Hypertension Hyperlipidemia Acid indigestion Anxiety Depression Sleep apnea NO CPAP Hx of blood clots GERD (gastroesophageal reflux disease) Years ago Paroxysmal A-fib (HCC) Clotting disorder Heart disease Family History Medical History Relation Name Comments Cancer Father My dad Hypertension Father My dad Alzheimer's disease Mother Gabi Lala Heart disease Mother Gabi Lala Hypertension Mother Gabi Lala Relation Name Status Comments Father My dad Alive Mother Gabi Lala Alive Social History Tobacco Use Types Packs/Day Years Used Date Smoking Tobacco: Never Smokeless Tobacco: Never Tobacco Cessation:Counseling Given: Not Answered [facility] Utilities Answer Date Recorded In the past 12 months has e electric, gas, oil, or water [employer] threatened to shut off services in your [...] often do you attend chur ch or mormon services? 1 to 4 times per year 07/24/2024 Do you belong to any clubs o r organizations such as yazidi groups, unions, fraternal or athletic groups, or [...] any time in the past 12 m [facility], were you homeless or living in a snf (including now)? No 07/24/2024 Personal Safety Answer Date Recorded Have you ever been in or are you currently in a harmful physical or emotional relationship or is someone making you feel afraid or unsafe? 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 Gender Identity Female 07/29/2021 9:23 AM WOODWORKER Sexual Orientation Not on file Obstetrics History Last Filed Vital Signs Vital Sign Reading Time Taken Comments Blood Pressure 126/82 11/16/2024 10:19 AM CDT Pulse 60 11/16/2024 10:19 AM CDT Temperature 36.7 C (98.1 F) 07/28/2024 7:28 AM WOODWORKER Respiratory Rate 16 07/28/2024 7:28 AM WOODWORKER Oxygen Saturation 97% 11/16/2024 10:19 AM CDT Inhaled Oxygen Concentration - - Weight 81.2 kg (179 lb) 11/16/2024 10:19 AM CDT Height 167.6 cm (5' 6) 11/16/2024 10:19 AM CDT Body Mass Index 28.89 11/16/2024 10:19 AM CDT Plan of Treatment Health Maintenance Due Date Last Done Comments Colon Cancer Screening-Colonoscopy 1955 Depression Screening 1955 Hepatitis C Screening 1955 Osteoporosis Screening-Bone Density Scan 1955 DTaP/Tdap/Td Vaccine (1 - Tdap) 1968 Hepatitis B Screening 1975 Pneumococcal vaccine 65+ (2 of 2 - PPSV23) 01/07/2018 11/12/2017 Breast Cancer Screening-Mammogram 10/21/2019 10/20/2018, 10/11/2017, 10/05/2016, Additional history exists Well Visit 65+ 2022 Covid-19 Vaccine (2 - 2023-2 5 season) 2024 09/17/2020 Influenza Vaccine (Season Ended) 2025 03/31/20, 03/28/2018 Fall Risk Assessment 07/28/2025 07/28/2024 Zoster Vaccine Completed 07/06/2020, 04/19/2020 Medical Devices Implanted Type Area Chief [facility] Administrator Device Identifier Shelf Expiration Date Model / Serial / Lot Cage Cage N/A: Back Implantable Loop Recorder Implantable Loop Recorder Left: Chest [employer] Durata 6.8fr 65cm True Bipolar Active Fixation Extendable 1 Coil 7122q/65 - [id number] Implanted:Qty : 1 on 06/29/2024 by Abraham Alvarado MD at [facility] Lead [employer] 03/11/2027 [id number]/65 / / Pin Pin N/A: Back Screw Screw N/A: Back Lonny N/A: Back [employer] Vascade Mvp 6-12fr Venous Closure [id number] - [id number] Implanted:Qty : 1 on 06/19/2024 by Abraham Alvarado MD at [facility] [employer] 02/14/2026 800-612C -10U / / [id number] [employer] Vascade Mvp 6-12fr Venous Closure [id number] - [id number] Implanted:Qty : 1 on 06/19/2024 by Abraham Alvarado MD at [facility] [employer] 02/14/2026 800-612C -10U / / [id number] [employer] Vascade Mvp 6-12fr Venous Closure [id number] - [id number] Implanted:Qty : 1 on 06/19/2024 by Abraham Alvarado MD at [facility] 02/14/2026 800-612C -10U / / [id number] [employer] Angio-Seal Vip 6fr Closere Device [id number] - [id number] Implanted:Qty : 1 on 06/28/2024 by Ron Davis MD at [facility] Right: Common Femoral Artery [employer] Jenny [id number] / / Lux Vascular Active Fixation Steroid Eluting Latex Free Sterile Right Atrium Ventricle Ultipace 52cm [id number] - [id number] Implanted:Qty : 1 on 06/29/2024 by Abraham Alvarado MD at [facility] [employer] 05/11/2027 [id number]/ [id number] / / [employer] Defib Cardiac Hif59ve 31i64bm [place] Implantable 2 Chamber [id number] - [id number] - [id number] Implanted:Qty : 1 on 06/29/2024 by Abraham Alvarado MD at [facility] [employer] [id number] 01/08/2026 [id number] / [id number] / Procedures Procedure Name Priority Date/Time [...] PM CDT Narrative 11/10/2024 11:20 PM CDT [facility] Cardiology [address], [place] [address] [address] [facility] [address], [place] [address] P:[phone] P:[phone] Echocardiographic Report Patient Name: REENA MC M : 1955 Study Date: 11/10/2024 1:21:56 PM Gender: F Tech: [facility] Location: [facility] Provider: JOHN BRAXTON Height(Cm): 168 BSA: [...] FINDINGS: Interpretation Site: Exam was interpreted at [facility]. Left Ventricle: Normal left ventricular systolic function. [...] abnormal. Electronically Signed By: Dr. Jose Metz [facility] 11/10/2024 11:20:32 PM CDT Procedure Note Jose Metz MD - 11/10/2024 [facility] Cardiology [address] [facility] [address], [place] [address] [address] [facility] [address], [place] [address] P:[phone] P:[phone] Echocardiographic Report Patient Name: REENA MC M : 1955 Study Date: 11/10/2024 1:21:56 PM Gender: F Tech: [facility] Location: [facility] Provider: JOHN BRAXTON Height(Cm): 168 BSA: [...] FINDINGS: Interpretation Site: Exam was interpreted at [facility]. Left Ventricle: Normal left ventricular systolic function. [...] abnormal. Electronically Signed By: Dr. Jose Metz [facility] 11/10/2024 11:20:32 PM CDT us John Braxton MD CV ECHO PROCEDURES Final [...] condition. Rdw 14.3 11.0 - 15.0 % [facility] Platelets 356 140 - 400 Thousand/u L [facility] MPV 9.4 7.5 - 12.5 fL [facility] Neutrophils, abs 3,763 1,500 - 7,800 cells/uL [facility] Lymphocytes, abs 1,176 850 - 3,900 cells/uL [facility] Monocyte abs 420 200 - 950 cells/uL [facility] Eosinophils, abs 190 15 - 500 cells/uL [facility] Basophils, abs 50 0 - 200 cells/uL [facility] Neutrophils 67.2 % [facility] Lymphocyte pct 21.0 % [facility] Monocytes 7.5 % [facility] Eosinophils 3.4 % [facility] Basophils 0.9 % [facility] Blood 10/18/2024 9:23 AM CDT 10/18/2024 9:24 AM CDT Narrative [facility] - 10/18/2024 4:51 PM CDT FASTING:YES FASTING: YES us Tran Seymour NP LAB BLOOD ORDERABLES Poonam l Result [facility] [address] [place] [address] * (ABNORMAL) Comprehensive metabolic panel (10/18/2024 9:23 AM CDT) Glucose 105(H) 65 - 99 mg/dL [facility] Comment: Fasting reference interval For someone without known diabetes, a glucose value between 100 and 125 mg/dL is consistent with prediabetes and should be confirmed with a follow-up test. BUN 22 7 - 25 mg/dL [facility] Creatinine 1.28(H) 0.50 - 1.05 mg/dL [facility] eGFR 46(L) > OR = 60 mL/min/1.7 3m2 [facility] BUN/creat ratio 17 6 - 22 (calc) [facility] Sodium 137 135 - 146 mmol/L [facility] Potassium, pl 4.7 3.5 - 5.3 mmol/L [facility] Chloride 100 98 - 110 mmol/L [facility] CO2 28 20 - 32 mmol/L [facility] Calcium 9.4 8.6 - 10.4 mg/dL [facility] Protein, sr 6.6 6.1 - 8.1 g/dL [facility] Albumin 3.9 3.6 - 5.1 g/dL [facility] GLOBULIN 2.7 1.9 - 3.7 g/dL (calc) [facility] Alb/glob ratio 1.4 1.0 - 2.5 (calc) [facility] Bilirubin, total 0.4 0.2 - 1.2 mg/dL [facility] Alk phos 77 37 - 153 U/L [facility] AST 29 10 - 35 U/L [facility] ALT (SGPT) 24 6 - 29 U/L [facility] Blood 10/18/2024 9:23 AM CDT 10/18/2024 9:24 AM CDT Narrative [facility] - 10/18/2024 4:51 PM CDT FASTING:YES FASTING: YES us Tran Seymour NP LAB BLOOD ORDERABLES Poonam jasso Result [facility] [address] [place] [address] * Screening Mammogram Bilateral W Sumit (10/20/2018 7:38 AM CDT) Anatomical Region Laterality Modality Breast Bilateral Mammography 10/20/2018 7:53 AM CDT Narrative 10/20/2018 10:38 AM CDT Patient Name: REENA MC Dr: Pedro Luis Mello MD D.O.B: 1955 Exam Date: 10/20/18 0738 Age: 63 Sex: Female MR#: [id number] Loc: RADIOLOGY REPORT Order #[id number] [facility] Rm Bilat Screening 3D Signed - [...] mammogram, 10/05/2016 mammogram, and 09/24/2015 mammogram - [facility]. BREAST TISSUE: There are scattered areas of [...] age 40, based on guidelines of the [place] [employer] (ACR Practice Parameter for the Performance of Screening and Diagnostic Mammography) and [place] [employer]. For women with an elevated risk of breast cancer, please refer to the ACR Practice Parameter for specific screening recommendations. The patient will be entered into a reminder system with a target due date of 1 year for her next screening exam. Electronically signed by: Abraham munson/iesha:10/20/2018 10:38:53 Domestic Violence Counselor: Reva MONZON)(Vanessa), [facility] letter sent: Normal Exam Reading location: [facility] BI-RADS: 1 Negative REPORT ELECTRONICALLY SIGNED IN OTHER VENDOR SYSTEM Resulting Agency Comment O Procedure Note Abraham Winkler MD - 10/20/2018 Patient Name: REENA MCjn Dr: Pedro Luis Mello MD D.O.B: 1955 Exam Date: 10/20/18 0738 Age: 63 Sex: Female MR#: [id number] [id number] Order #[id number] [facility] Rm Bilat Screening 3D Signed - [...] 10/11/2017 mammogram,10/05/2016 mammogram, and 09/24/2015 mammogram - [facility]. BREAST TISSUE: There are scattered areas of [...] age 40, based on guidelines of the [place] [employer] (ACR Practice Parameter for the Performance of Screening and Diagnostic Mammography) and [place] [employer]nec[employer]. For women with an elevated risk of breast cancer, pleaserefer to the ACR Practice Parameter for specific screening recommendations. The patient will be entered into a reminder system with a target due dateof 1 year for her next screening exam. Electronically signed by: Abraham munson/iesha:10/20/2018 10:38:53 Domestic Violence Counselor: Reva MONZON)(Vanessa), [facility] letter sent: Normal Exam Reading location: [facility] BI-RADS: 1 Negative REPORT ELECTRONICALLY SIGNED IN OTHER VENDOR SYSTEM [facility] Chepe Mello MD IMG MAMMO PROCEDURES Final Resul t from Last 3 Months or Most Recently Relevant to Health Maintenance Insurance T MEDICARE GOLD AETNA MEDICARE GOLD AETNA MEDICARE GOLD Advance Directives For more information, please contact: [phone] Documents on File Type Date Recorded Patient Campus Interviews Intern Expl anation Power of Forestry Hunter 06/19/2024 7:34 AM * Full Code (Latest Code Status on File) Date Activated Date Inactivated Comments 07/23/2024 10:33 PM 07/28/2024 5:30 PM * Full Code Date Activated Date Inactivated Comments 06/23/2024 6:51 PM 06/30/2024 6:35 PM * Full Code Date Activated Date Inactivated Comments 06/19/2024 6:36 PM 06/20/2024 5:22 PM Care Teams Garment Supervisor Relationship Specialty Start Date End Date Claudia Lamar DO PCP - General Family Medicine 02/19/22 John Braxton MD [address] [facility] [address] [place] [id number] Consulting Physician Cardiology 06/05/24
[2024-12-13 00:32] VITALS: BP 129/65; PULSE 60; RESP 15; O2SAT 96
[2024-12-13] MEDS: ACETAMINOPHEN 500 MG TABLET 1000 MG PO (00:32)
[2024-12-13 01:00] VITALS: BP 148/69; PULSE 60; RESP 20; O2SAT 97
[2024-12-13 01:32] VITALS: BP 136/74; PULSE 60; RESP 18; O2SAT 93
--- NOTE | 2024-12-13 01:43 | ED.FALL ---
HPI - Fall General Chief Complaint: Fall Stated Complaint: trip and fall/frontal head hematoma on thinners Time Seen by Provider: 12/13/24 00:00 Source: patient Mode of arrival: EMS Limitations: no limitations History of Present Illness HPI Narrative: Patient is a 69-year-old female who presents the ED via EMS with report of a fall. Patient reports she was walking [place] of a casino tonight when she tripped on uneven pavement and fell forward, hitting her left-sided head on the ground. She sustained a large hematoma to her left forehead. Denied LOC. Also reports pain to her right knee. Has been able to ambulate since the fall. Patient is on Eliquis due to history of AFib. Prompted here for further evaluation. Patient denies any dizziness, lightheadedness, vision changes, nausea, vomiting, chest pain, abdominal pain, hip pain, neck or back pain. Related Data Home Medications ?Medication ?Instructions ?Recorded ?Confirmed ?Last Taken ?Type ergocalciferol (vitamin D2) 1,250 1,250 mcg PO DIRECTED 02/12/22 10/05/24 05/26/22 History mcg (50,000 unit) capsule lactobacillus comb no.10 20 20,000 mmu cells PO DAILY 11/17/23 10/05/24 Unknown History billion cell capsule (Probiotic) mecobalamin (vitamin B12) 1,000 1,000 mcg sublingual DAILY 08/02/24 10/05/24 Unknown History mcg disintegrating tablet,sublingual Allergies Allergy/AdvReac Type Severity Reaction Status Date / Time duloxetine Allergy Unknown Unknown Verified 12/12/24 23:20 latex Allergy Unknown Skin Verified 12/12/24 23:20 Reaction nitrofurantoin Allergy Unknown Skin Verified 12/12/24 23:20 Reaction LATEX TAPE Allergy Unknown BROKE OUT Uncoded 12/12/24 23:20 WITH BLISTERS Review of Systems Review of Systems: All systems reviewed & are unremarkable except as noted in HPI. All systems reviewed & are unremarkable except as noted in HPI and below PMFSH Past Medical History Medical History Dysphagia Hyperlipidemia LDL goal <130 DVT of leg (deep venous thrombosis) Atrial fibrillation Adjustment disorder with anxiety Chronic bilateral low back pain without sciatica Gastro-esophageal reflux disease without esophagitis Major depressive disorder, recurrent, moderate Surgical History Surgical History History of bladder surgery H/O: hysterectomy History of back surgery Family History Family History Mother Diabetes mellitus Hypertension Family history of elevated blood lipids Carcinoma of colon Colon polyp Father Diabetes mellitus Hypertension Family history of elevated blood lipids Social History Social History Social History: the patient is the is the durable power contracts attorney for healthcare. 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 She never smoked. She has 2 children. code status full code Smoking status: Never smoker Second hand tobacco smoke exposure: No Alcohol intake: never Substance use: never Do You Feel Safe in your Home?: Yes Lack of Transportation: No Lack of Food: Never True Current Housing: I Have Housing Concerned About Future Housing: No Difficulty Paying Gas/Electric Bills: No Difficulty Paying for Meds: No Currently Unemployed: No Education: High School Diploma/GED Difficulty w/ Childcare or Family Care: No Living arrangements: with family Spiritual care concerns: No Exam Narrative: GENERAL: Well appearing, well-nourished, non-toxic, in no acute distress. HEAD: Normocephalic. Large hematoma bruising to left forehead. Focal tenderness. EYES: PERRL/EOMI, conjunctiva clear. No pain with eye movements NECK: No midline spinal tenderness. Normal ROM RESPIRATORY: Airway patent, respirations nonlabored. Clear to auscultation bilaterally, no rales, rhonchi, wheezing. CARDIOVASCULAR: Regular rate and rhythm without murmurs, rubs, or gallops. Peripheral pulses intact MUSCULOSKELETAL: Moves all extremities. No gross deformities. No midline thoracic or lumbar spinal tenderness. Mild tenderness to palpation over right anterior knee with minimal swelling. Small abrasion. SKIN: Warm, dry, normal color. NEURO: A&O X3. Speech clear. Cranial nerves II-XII grossly intact. Steady gait. No ataxic movements. No focal deficits. PSYCHIATRIC: Appropriate mood and affect. Normal interaction. Course Vital Signs Vital signs: Vital Signs Temperature 98 F 12/12/24 23:02 Pulse Rate 60 12/12/24 23:02 Respiratory Rate 19 12/12/24 23:02 Blood Pressure 154/76 H 12/12/24 23:02 Pulse Oximetry 99 12/12/24 23:02 Oxygen Delivery Room Air 12/12/24 23:02 Temperature 98 F 12/12/24 23:02 Pulse Rate 60 12/13/24 00:32 Respiratory Rate 15 12/13/24 00:32 Blood Pressure 129/65 12/13/24 00:32 Pulse Oximetry 96 12/13/24 00:32 Oxygen Delivery Room Air 12/12/24 23:02 MDM - Fall MDM Narrative Medical decision making narrative: CT brain and cervical spine negative for traumatic findings pain X-ray of right knee interpreted by myself without evidence of fracture. Does show possible joint effusion. Placed in Kingsley bandage. Patient ready to go home. She feels comfortable going home. Advised frequent icing, continue Tylenol as needed for pain. Patient also has tramadol at home that she can use for more severe pain. Discussed rice therapy, strict return precautions. Patient in agreement with plan. Discharged in stable condition. Remained neurologically intact at time of D/C. No further concerns. Medical Records Attestation: I reviewed the patient's medical records. Imaging Data Attestation: I personally reviewed and interpreted this imaging study as follows: Radiologist's impression: STAT RAD CT brain: No acute intracranial finding. Scalp hematoma. STAT RAD CT cervical spine: No acute cervical spine findings. Discharge Plan Discharge Clinical Impression: Fall from ground level, Closed head injury, Traumatic hematoma of scalp, Strain of right knee Patient Disposition: Home Condition: Stable Instructions: Antibiotic Form, Concussion (ED), Head Injury (ED), Hematoma (ED) Additional Instructions: Recommend frequent icing to head to help with pain and swelling. Continue Tylenol as needed for pain. Tramadol as needed for more severe pain. Elevate leg as needed. Utilize Kingsley bandage for compression and support. Recommend follow-up with your primary care doctor for further evaluation. Return to the ED if you experience worsening or severe pain, severe dizziness, passing out, vision changes, numbness or weakness of arm or leg, recurrent fall or injury, neck or back pain, or any other symptoms of concern. Patient Language: Emirati Prescriptions: No Action Probiotic 20 billion cell capsule 20,000 mmu cells PO DAILY Rx Instructions: administer with a meal mecobalamin (vitamin B12) 1,000 mcg tablet,disintegrating 1,000 mcg sublingual DAILY Rx Instructions: place tablet under tongue and allow to dissolve for at least30 secs before swallowing Eliquis 5 mg tablet 5 mg PO Q12H Qty: 180 1RF loperamide 2 mg capsule 2 mg PO Q6H PRN (Reason: loose stool) Qty: 60 1RF Rx Instructions: administer after each loose stool until symptoms controlled; do not exceed 8 mg per 24 hrs meclizine 12.5 mg tablet 12.5 mg PO TID PRN (Reason: dizziness) Qty: 90 1RF omeprazole 20 mg capsule,delayed release(DR/EC) 20 mg PO DAILY Qty: 90 1RF amiodarone 400 mg tablet 400 mg PO DAILY Qty: 90 1RF tramadol 50 mg tablet 50 mg PO Q6H PRN (Reason: pain) Qty: 28 0RF ondansetron 4 mg tablet,disintegrating 4 mg PO Q8H PRN (Reason: nausea and vomiting) 7 Days Qty: 14 0RF ergocalciferol (vitamin D2) 1,250 mcg (50,000 unit) capsule 1,250 mcg PO DIRECTED Rx Instructions: Patient takes on the and 15th of every month colestipol 1 gram tablet 1 g PO BID 30 Days Qty: 60 5RF metoprolol succinate 25 mg tablet extended release 24 hr 25 mg PO DAILY Qty: 90 1RF sertraline 100 mg tablet See Rx Instructions .ROUTE .COMPLEX Qty: 90 1RF Dose Instruction: TAKE 1 TABLET BY MOUTH EVERY DAY Rx Instructions: TAKE 1 TABLET BY MOUTH EVERY DAY Sutab 1.479-0.188- 0.225 gram tablet See Rx Instructions PO PER PKG DIR Qty: 24 0RF Rx Instructions: PO PER PKG DIR Follow-up/Referrals: Claudia Lamar DO [Primary Care Provider] - Time of Disposition: 02:22
[2024-12-13 03:01] VITALS: PULSE 60; RESP 18; O2SAT 94
[2024-12-13 03:29] VITALS: BP 136/62; PULSE 60; RESP 16; TEMP 36.4; O2SAT 95
== END 2024-12-13 03:20 | disposition home or self-care (01) ==
PROVIDERS: Emergency Provider Physician Assistant; PCP Family Medicine
DX: S00.83XA Contusion of other part of head, initial encounter (principal); S86.911A Strain of unspecified muscle(s) and tendon(s) at lower leg level, right leg, initial encounter; E78.5 Hyperlipidemia, unspecified; Z86.718 Personal history of other venous thrombosis and embolism; I48.91 Unspecified atrial fibrillation; K21.9 Gastro-esophageal reflux disease without esophagitis; F33.9 Major depressive disorder, recurrent, unspecified; F43.22 Adjustment disorder with anxiety; Z90.710 Acquired absence of both cervix and uterus; Z79.01 Long term (current) use of anticoagulants; Z79.899 Other long term (current) drug therapy; W01.0XXA Fall on same level from slipping, tripping and stumbling without subsequent striking against object, initial encounter
CPT/HCPCS: 70450; 72125; 73564; 99284; A9270

== ENCOUNTER 2025-01-29 13:58 | Outpatient (CLI) | payer MEDICARE, SELFPAY ==
--- NOTE | ~2025-01-29 | DEXA_ITS ---
Bone Density Report Name: LINDA ARDON Age: 69 Sex: Female Ethnicity: White Date of : 1955 Indication: osteopenia; hysterectomy; Referring Provider: JOHNATHON CLIFTON Study: Bone densitometry was performed. Exam Date: January 29, 2025 Accession number: [id number] Bone Density: Region BMD T-score Z-score Classification AP Spine(L1-L4) 0.905 -1.3 0.6 Osteopenia Femoral Neck (Left) 0.654 -1.8 -0.1 Osteopenia Total Hip (Left) 0.846 -0.8 0.6 Normal Femoral Neck (Right) 0.633 -1.9 -0.3 Osteopenia Total Hip (Right) 0.852 -0.7 0.6 Normal Total Hip Mean 0.849 -0.8 0.6 Normal World Health Organization criteria for BMD impression classify patients as: Normal (T-score at or above -1.0), Osteopenia (T-score between -1.0 and -2.5), or Osteoporosis (T-score at or below -2.5). 10-year Fracture Risk(1): Major Osteoporotic Fracture 11% Hip Fracture 1.7% Reported Risk Factors: [place] (), Neck BMD=0.633, BMI=29.1 (1) FRAX(R) Version 3.08. Fracture probability calculated for an untreated patient. Fracture probability may be lower if the patient has received treatment. Previous Exams: -- Region Exam Age BMD T-score BMD Change BMD Change Date g/cm2 vs Baseline vs Previous -- AP Spine (L1-L4) 01/29/2025 69 0.905 -1.3 -2.3% -2.4% 08/27/2022 66 0.927 -1.1 0.1% 0.1% 04/04/2020 64 0.926 -1.1 Total Hip(Left) 01/29/2025 69 0.846 -0.8 -10.3%* -7.7%* 08/27/2022 66 0.917 -0.2 -2.8% -2.8% 04/04/2020 64 0.943 0.0 Total Hip(Right) 01/29/2025 69 0.852 -0.7 -4.1%* -5.0%* 08/27/2022 66 0.897 -0.4 0.9% 0.9% 04/04/2020 64 0.889 -0.4 -- *Denotes significance at 95% confidence level, LSC for AP Spine = 0.022 g/cm2, LSC for Total Hip = 0.027 g/cm2 Clinical Information Provided by Patient: Has used the following medications: Vitamin D, Calcium Has the following medical conditions: Hysterectomy Patient maximum height was 66 Menopause Age: 44 No regular weight bearing exercise Does not regularly consume dairy products Drinks caffeinated beverages Onset of menses at age 14 Number of children 2 Impression: The patient has low bone mass, based on the Right Femoral Neck T-score. The patient has an estimated ten-year risk of hip fracture of 1.7% and an estimated ten-year risk of major fracture of 11%, based on the WHO FRAX algorithm. The BMD for the Total Hip(Left) decreased, changing by -7.7% since the last DXA exam. The BMD for the Total Hip(Right) decreased, changing by -5.0% since the last DXA exam. Discussion: BONE DENSITY IS LOW AT ONE OR MORE SKELETAL SITES. This patient's lowest T-score is low at one or more skeletal sites. It meets the World Health Organization's (WHO) criteria for ?low bone mass? (T-score between -1.0 and -2.5). The patient's 10-year risk of fracture as calculated by FRAX is less than the threshold where pharmacological therapy is recommended by the National Osteoporosis Foundation (NOF). However, all treatment decisions require clinical judgment and consideration of individual patient factors, including patient preferences, comorbidities, previous drug use, risk factors not captured in the FRAX model (e.g., frailty, falls, vitamin D deficiency, increased bone turnover, interval significant decline in bone density) and possible under or overestimation of fracture risk by FRAX. The patient should follow a healthful lifestyle (good nutrition with adequate calcium and vitamin D, and appropriate weight-bearing exercise). Follow-Up: Consider repeating this study in 2 years to reassess this patient's status, or sooner if there is some new clinical indication. Reported by: AUDI on 01/29/2025 2:22:00 PM. Reviewed, dictated and finalized at location A.
== END 2025-01-29 13:59 | disposition home or self-care (01) ==
LOC: MICIMG 13:59
PROVIDERS: PCP Family Medicine; Visit Provider Obstetrics & Gynecology Gynecology
DX: Z78.0 Asymptomatic menopausal state (principal); M85.88 Other specified disorders of bone density and structure, other site; M85.852 Other specified disorders of bone density and structure, left thigh; M85.851 Other specified disorders of bone density and structure, right thigh
CPT/HCPCS: 77080

== ENCOUNTER 2025-02-22 00:42 | Day surgery (SDC) | payer MEDICARE, SELFPAY ==
[2025-02-07 15:21] VITALS: BMI 28.8
--- NOTE | 2025-02-07 15:33 | PC.NURSE ---
Spoke with patient regarding medication Eliquis. Patient verbalizes understanding that the last dose is to be taken on 02/19/25 and the Endoscopist will instruct them when to restart after the procedure.
--- OUTSIDE RECORDS SUMMARY | 2025-02-22 00:45 | XMS_ITS | Continuity of Care Document ---
Author Organization [facility] Address [id number] [place] [address] [address] [place] [address] Phone Care Team Providers Care Marine Technician Name Role Phone Antonio Sam MD Unavailable Unavailable Procedures Procedure Date OFFICE/OUTPATIENT VISIT, [facility] OPHTHALMIC BIOMETRY RT OPHTHALMIC BIOMETRY Advance Directives Directive Yes / No Effective Date File Name No Information Encounters Encounter Description Practice Location Reason(s) For Visit Diagnoses Date Provider Providers Copied on Encounter OFFICE/OUTPAT IENT VISIT, [facility], [id number] [place], [place] [address] [address], [place], [place], [id number], tel:[phone] [facility] No Information 0 Cecy Alvarez. [address] [place] [address], [address], [place], [place], [id number], [place]. tel:[phone] Family History Family Member Type Diagnosis Age At Onset No Information Payers Payer name Insurance type Covered republican ID Authoriza tion(s) [employer] [place] [id number] Social History Type Description Quantity Date Captured [...]
--- OUTSIDE RECORDS SUMMARY | 2025-02-22 00:45 | XMS_ITS | Clinical Summary ---
Author Organization [facility] Address [address] [place] [address] Care Team Providers Care Supervisor Cutting And Boning Name Role Phone Dillon Mello MD Primary Care Provider [phone] Ben Mittal MD Unavailable [phone] Kevin Parikh MD Unavailable [phone] Source Comments [facility],non-owned Affiliates and Associated Physician Practices is amultiple site organization consisting of ambulatory clinics and hospital sitesin [place], [place], [place] and [place]. This disclosure is being madepursuant to the Care Everywhere program and may not contain all information available regarding this patient. Last updated 18.[facility] Allergies Active Allergy Reactions Criticality Noted Date [...] on file Legal Sex Female 1:43 PM FLOTATION OPERATOR Gender Identity Not on file Sexual Orientation Not on file Last Filed Vital Signs Vital Sign Reading Time Taken Comments Blood Pressure 114/62 05/23/2018 9:09 AM FLOTATION OPERATOR Pulse 69 11/04/2017 11:10 AM CDT Temperature 37 C (98.6 F) 11/04/2017 11:10 AM CDT Respiratory Rate 16 11/04/2017 11:10 AM CDT Oxygen Saturation 98% 11/04/2017 11:10 AM CDT Inhaled Oxygen Concentration - - Weight 80.3 kg (177 lb) 05/23/2018 9:09 AM FLOTATION OPERATOR Height 167.6 cm (5' 6) 05/23/2018 9:09 AM FLOTATION OPERATOR Body Mass Index 28.57 05/23/2018 9:09 AM FLOTATION OPERATOR Plan of Treatment Health Maintenance Due Date [...] season) 2024 DEPRESSION SCREENING 07/12/2024 INFLUENZA VACCINE (#1) 2025 Respiratory Syncytial Virus (RSV) Vaccine Pt: [...] this topic Medical Devices Implanted Type Area Reporting Manager Device Identifier Shelf Expiration Date Model / Serial / Lot Sys Ureth Supp Obtryx Midurethral Trnstr Implanted:Qty: 1 on 11/03/2017 by Ben Mittal MD at [facility] N/A: Vagina [employer] 08/17/2020 [id number] / / [id number] Insurance COVENTRY MEDICARE Advance Directives * Full Code (Latest Code Status on File) Date Activated Date Inactivated Comments 11/03/2017 3:52 PM 11/04/2017 1:26 PM * Full Code Date Activated Date Inactivated Comments 11/03/2017 2:42 PM 11/03/2017 3:52 PM Care Teams Supervisor Cutting And Boning Relationship Specialty Start Date End Date Dillon Mello MD [address] [place] [address] PCP - General Family Medicine 09/20/17 Ben Mittal MD [address] [place] [address] Consulting Physician Obstetrics and Gynecology 09/20/17 Kevin Parikh MD [address] [place] [address] It Associate Obstetrics and Gynecology 09/20/17
--- OUTSIDE RECORDS SUMMARY | 2025-02-22 00:45 | XMS_ITS | Clinical Summary ---
Author Organization [facility] [address] Address [address] [place] [address] Care Team Providers Care Hat Steamer Name Role Phone Claudia Lamar DO Primary Care Provider + Mckay Braxton MD Unavailable [phone] Allergies Active Allergy Reactions Criticality Noted Date Comments Latex Hives,Rash Medium 01/16/2013 Nitrofurantoin Urticaria Medium 09/20/2017 Medications omeprazole (PriLOSEC) 20 mg capsule Take 1 capsule (20 mg total) by mouth daily 1 Active sertraline (ZOLOFT) 100 mg tablet Take 1 tablet (100 mg total) by mouth daily 1 Active albuterol HFA (PROVENTIL HFA,VENTOLIN HFA,PROAIR HFA) 90 mcg/actuation inhaler 2 puffs every 4 (four) hours as needed for wheezing or shortness of breath 4 Active ergocalciferol (VITAMIN D) 50,000 unit capsule Take 1 capsule (50,000 Units total) by mouth once a week TAKES FOR 3 WEEKS AND THEN STOP FOR A WEEK 4 Active apixaban (Eliquis) 5 mg tablet TAKE 1 TABLET BY MOUTH TWICE A DAY 180 tablet 2 4 Active loperamide (IMODIUM) 2 mg capsule Take 1 capsule (2 mg total) by mouth 4 (four) times a day as needed for diarrhea 30 capsule 5 Active cyanocobalamin (Vitamin B-12) 1,000 mcg tabletIndicatio ns:Prevention of Vitamin B12 Deficiency Take 1 tablet (1,000 mcg total) by mouth daily 30 tablet 5 07/28/19 26 Active meclizine (ANTIVERT) 12.5 mg tablet Take 1 tablet (12.5 mg total) by mouth 3 (three) times a day as needed for dizziness 30 tablet 1 5 Active metoprolol XL (TOPROL-XL) 25 mg extended release tablet Take 1 tablet (25 mg total) by mouth daily 90 tablet 1 5 08/23/19 26 Active traMADoL (ULTRAM) 50 mg tablet Take 1 tablet (50 mg total) by mouth every 6 (six) hours as needed 5 Active midodrine (PROAMATINE) 2.5 mg tablet TAKE 1 TABLET BY MOUTH 3 TIMES A DAY. 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 Dx; PAF. DOI 06/08/2022- Biotronik remote home monitoring. Exertional dyspnea 07/01/2021 Paroxysmal atrial fibrillation 12/19/2020 Encounters Date Type Department Care Team Description 02/20/2025 8:30 AM CDT Ancillary Procedure [facility] Cardiology [address], [place] [address] Paroxysmal atrial fibrillation (HCC); Automatic implantable cardiac defibrillator in situ; VT (ventricular tachycardia); Cardiomyopathy, idiopathic 01/18/2025 Telephone [facility] Cardiology [address] [place] [address] Mckay Braxton MD from Last 3 Months Immunizations [...] Tobacco: Never Tobacco Cessation:Counseling Given: Not Answered [facility] Utilities Answer Date Recorded In the past 12 months has e [employer], gas, oil, or water company threatened to shut off services in your home? No 07/24/2024 Social Connection and Isolation Panel Answer Date Recorded In a typical week, how many times do you talk on the phone with family, friends, or neighbors? More than three times a week 07/24/2024 How often do you get togethe r with friends or relatives? More than three times a week 07/24/2024 How often do you attend chur ch or mu-ism services? 1 to 4 times per year 07/24/2024 Do you belong to any clubs o r organizations such as voodoo groups, unions, fraternal or athletic groups, or [...] any time in the past [address] [facility], were you homeless or living in a fpc (including now)? No 07/24/2024 Personal Safety Answer Date Recorded Have you ever been in or are you currently in a harmful physical or emotional relationship or is someone making you feel afraid or unsafe? Denies 07/23/2024 Comments No Sex and Gender Information Value Date Recorded Sex Assigned at Not on file Legal Sex Female 3:42 AM FLOOR COVERING PRINTER Gender Identity Female 07/29/2021 9:23 AM FLOOR COVERING PRINTER Sexual Orientation Not on file Obstetrics History Last Filed Vital Signs Vital Sign Reading Time Taken Comments Blood Pressure 126/82 11/16/2024 10:19 AM CDT Pulse 60 11/16/2024 10:19 AM CDT Temperature 36.7 C (98.1 F) 07/28/2024 7:28 AM FLOOR COVERING PRINTER Respiratory Rate 16 07/28/2024 7:28 AM FLOOR COVERING PRINTER Oxygen Saturation 97% 11/16/2024 10:19 AM CDT [...] Pneumococcal vaccine 65+ (2 of 2 - PPSV23, PCV20, or PCV21) 01/07/2018 11/12/2017 Breast Cancer Screening-Mammogram 10/21/2019 10/20/2018, 10/11/2017, 10/05/2016, Additional history exists Well Visit 65+ 2022 Covid-19 Vaccine (2 - 2023-2 5 season) 2024 09/17/2020 Influenza Vaccine (#1) 2025 03/31/2019, 2017 Fall Risk Assessment 07/28/2025 07/28/2024 Zoster Vaccine Completed 07/06/2020, 04/19/2020 Medical Devices Implanted Type Area Wheat Buyer Device Identifier Shelf Expiration Date Model / Serial / Lot Cage Cage N/A: Back Implantable Loop Recorder Implantable Loop Recorder Left: Chest [employer] Durata 6.8fr 65cm True Bipolar Active Fixation Extendable 1 Coil [id number]/65 - [id number] Implanted:Qty : 1 on 06/29/2024 by Abraham Henry MD at [facility] Lead [employer] 03/11/2027 [id number]/65 / / Pin Pin N/A: Back Screw Screw N/A: Back Lonny N/A: Back [employer] Vascade Mvp 6-12fr Venous Closure [id number] - [id number] Implanted:Qty : 1 on 06/19/2024 by Abraham Henry MD at [facility] [employer] 02/14/2026 800-612C -10U / / [id number] [employer] Vascade Mvp 6-12fr Venous Closure [id number] - [id number] Implanted:Qty : 1 on 06/19/2024 by Abraham Henry MD at [facility] [employer] 02/14/2026 [id number] -[id number] / / [id number] [employer] Vascade Mvp 6-12fr Venous Closure [id number] - [id number] Implanted:Qty : 1 on 06/19/2024 by Abraham Henry MD at [facility] [employer] 02/14/2026 [id number] -[id number] / / [id number] [employer] Jenny Angio-Seal Vip 6fr Closere Device [id number] - [id number] Implanted:Qty : 1 on 06/28/2024 by Ron Davis MD at [facility] Right: Common Femoral Artery [employer] Jenny [id number] / / Lux [employer] Active Fixation Steroid Eluting Latex Free Sterile Right Atrium Ventricle Ultipace 52cm [id number] - [id number] Implanted:Qty : 1 on 06/29/2024 by Abraham Henry MD at [facility] [employer] 05/11/2027 [id number] / / [employer] Defib Cardiac [id number] [id number] [place] Implantable 2 Chamber [id number] - [id number] - [id number] Implanted:Qty : 1 on 06/29/2024 by Abraham Henry MD at [facility] [employer] [id number] 01/08/2026 [id number] / [id number] / Procedures Procedure Name Priority Date/Time Associated Diagnosis Comments SCREENING MAMMOGRAM BILATERAL W SUMIT 10/20/2018 7:38 AM CDT from Last 3 Months or Most Recently Relevant to Health Maintenance Results * Screening Mammogram Bilateral W Sumti (10/20/2018 7:38 AM CDT) Anatomical Region Laterality Modality Breast Bilateral Mammography 10/20/2018 7:53 AM CDT Narrative 10/20/2018 10:38 AM CDT Patient Name: REENA ARDON Dr: Pedro Luis Mello MD D.O.B: 1955 Exam Date: 10/20/18737 Age: 63 Sex: Female MR#: [id number] Loc: [facility]#: [id number] RADIOLOGY REPORT Order #[id number] [facility] Rm Bilat Screening 3D Signed - [...] mammogram, 10/05/2016 mammogram, and 09/24/2015 mammogram - [facility]. BREAST TISSUE: There are scattered areas of [...] age 40, based on guidelines of the [employer] (ACR Practice Parameter for the Performance of Screening and Diagnostic Mammography) and [employer] of Obstetricians [employer] Gynec[employer]. For women with an elevated risk of breast cancer, please refer to the ACR Practice Parameter for specific screening recommendations. The patient will be entered into a reminder system with a target due date of 1 year for her next screening exam. Electronically signed by: Abraham munson/iesha:10/20/2018 10:38:53 Show Design Supervisor: Reva LOZANO(Myrtle)(Vanessa), [facility] letter sent: Normal Exam Reading location: [facility] BI-RADS: 1 Negative REPORT ELECTRONICALLY SIGNED IN OTHER VENDOR SYSTEM Resulting Agency Comment O Procedure Note Abraham Winkler MD - 10/20/2018 Patient Name: REENA ARDON Dr: Pedro Luis Mello MD D.O.B: 1955 Exam Date: 10/20/18 0738 Age: 63 Sex: Female MR#: [id number] Loc: RADIOLOGY REPORT Order #[id number] [facility] Rm Bilat Screening 3D Signed - [...] 10/11/2017 mammogram,10/05/2016 mammogram, and 09/24/2015 mammogram - [facility]. BREAST TISSUE: There are scattered areas of [...] age 40, based on guidelines of the [employer] (ACR Practice Parameter for the Performance of Screening and Diagnostic Mammography) and [employer] Obstetricians and Gynecologists. For women with an elevated risk of breast cancer, pleaserefer to the ACR Practice Parameter for specific screening recommendations. The patient will be entered into a reminder system with a target due dateof 1 year for her next screening exam. Electronically signed by: Abraham Winkler M.D. ab/iesha:10/20/2018 10:38:53 Show Design Supervisor: Reva LOZANO(Myrtle)(M), [facility] letter sent: Normal Exam Reading location: [facility] BI-RADS: 1 Negative REPORT ELECTRONICALLY SIGNED IN OTHER VENDOR SYSTEM 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 House Worker Expl anation Power of Truck Loader Overhead Crane 06/19/2024 7:34 AM * Full Code (Latest Code Status on File) Date Activated Date Inactivated Comments 07/23/2024 10:33 PM 07/28/2024 5:30 PM * Full Code Date Activated Date Inactivated Comments 06/23/2024 6:51 PM 06/30/2024 6:35 PM * Full Code Date Activated Date Inactivated Comments 06/19/2024 6:36 PM 06/20/2024 5:22 PM Care Teams Hat Steamer Relationship Specialty Start Date End Date Claudia Lamar DO PCP - General Family Medicine 02/19/22 Mckay Braxton MD [address] [address] Consulting Physician Cardiology 06/05/24
[2025-02-22 08:48] VITALS: BP 105/67; PULSE 79; RESP 16; TEMP 36.1; O2SAT 99
[2025-02-22] MEDS: LACTATED RINGERS 1,000 ML 150 ML IV CONT (08:49)
--- NOTE | 2025-02-22 08:54 | P.PNAN_ITS ---
Anes - Initial Pre Proc Eval Procedure: Operation Date: 02/22/25 10:00 Proposed Procedures p Colonoscopy - Keyur Woods MD Date/Time: 02/22/25 08:54 Surgeon: Keyur Woods MD Pre Op Diagnosis: Other fecal abnormalities Patient Data Age: 69 Gender: F Height: 1.68 m Weight: 80 kg Last Vital Signs Temp 36.1 C L 02/22/25 08:48 Pulse 79 02/22/25 08:48 Resp 16 02/22/25 08:48 BP 105/67 02/22/25 08:48 Pulse Ox 99 02/22/25 08:48 O2 Del Method Room Air 02/22/25 08:48 Allergies Allergy/AdvReac Type Severity Reaction Status Date / Time duloxetine Allergy Unknown Unknown Verified 02/22/25 08:44 latex Allergy Unknown Skin Verified 02/22/25 08:44 Reaction nitrofurantoin Allergy Unknown Skin Verified 02/22/25 08:44 Reaction LATEX TAPE Allergy Unknown BROKE OUT Uncoded 02/22/25 08:44 WITH BLISTERS Home Medications ?Medication ?Instructions ?Recorded ?Confirmed ?Type ergocalciferol (vitamin D2) 1,250 1,250 mcg PO DIRECTED 02/12/22 02/22/25 H istory mcg (50,000 unit) capsule apixaban 5 mg tablet (Eliquis) 5 mg PO Q12H #180 tabs 08/02/24 02/22/25 Rx loperamide 2 mg capsule 2 mg PO Q6H PRN loose stool #60 08/02/24 02/07/25 Rx caps meclizine 12.5 mg tablet 12.5 mg PO TID PRN dizziness #90 08/02/24 02/07/25 Rx tabs mecobalamin (vitamin B12) 1,000 1,000 mcg sublingual DAILY 08/02/24 02/22/25 History mcg disintegrating tablet,sublingual omeprazole 20 mg capsule,delayed 20 mg PO DAILY #90 caps 08/02/24 02/22/25 Rx release metoprolol succinate 25 mg 25 mg PO DAILY #90 tabs 08/04/24 02/22/25 Rx tablet,extended release 24 hr sertraline 100 mg tablet See Rx Instructions .Route 04/16/25 08/14/25 Rx .COMPLEX #90 tabs sertraline 50 mg tablet 50 mg PO DAILY Anxiety #90 tabs 12/20/24 02/22/25 Rx midodrine 2.5 mg tablet 2.5 mg PO TID 02/07/25 02/22/25 History Patient hx anesthesia problems: none Family hx anesthesia problems: none Results Review: All pre-operative results and documents have been reviewed as part of the pre- operative evaluation. [facility] Past Medical History Medical History (Updated 02/22/25 @ 08:55 by Jason Salazar DO) Pacemaker Hypertension Dysphagia Hyperlipidemia LDL goal <130 DVT of leg (deep venous thrombosis) Atrial fibrillation Adjustment disorder with anxiety Chronic bilateral low back pain without sciatica Gastro-esophageal reflux disease without esophagitis Major depressive disorder, recurrent, moderate Surgical History Surgical History History of bladder surgery H/O: hysterectomy History of back surgery Family History Family History Mother Diabetes mellitus Hypertension Family history of elevated blood lipids Carcinoma of colon Colon polyp Father Diabetes mellitus Hypertension Family history of elevated blood lipids Social History Social History Social History: the patient is the is the durable power securities attorney for healthcare. 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 She never smoked. She has 2 children. code status full code Smoking status: Never smoker Second hand tobacco smoke exposure: No Alcohol intake: never Substance use: never Substance use type: does not use Do You Feel Safe in your Home?: Yes Lack of Transportation: No Lack of Food: Never True Current Housing: I Have Housing Concerned About Future Housing: No Difficulty Paying Gas/Electric Bills: No Difficulty Paying for Meds: No Currently Unemployed: No Education: High School Diploma/GED Difficulty w/ Childcare or Family Care: No Living arrangements: with family Spiritual care concerns: No Anes - Eval Final PreProcedure Day of Procedure 02/22/25 08:54 Patient weight: overweight Heart: regular rate and rhythm Lungs: clear to auscultation Airway: Mallampati scale class II Neurological: alert and oriented Last oral intake: >/= 8 hours ASA classification: IV Emergent: no Anesthetic plan: proceed Anesthesia type and monitoring: general GIVS and standard monitoring Results Review: All pre-operative results and documents have been reviewed as part of the pre- operative evaluation. Informed Consent: The patient's anesthetic plan and its attendant risks and benefits were discussed with the patient/family/POA. Questions were solicited and answers provided to the satisfaction of the patient/family/POA.
--- NOTE | 2025-02-22 09:52 | PM.HPGS ---
History of Present Illness History of Present Illness Consent: Risks, benefits, and alternatives have been discussed and questions answered. Patient agrees to proceed with procedure. Chief complaint: Other fecal abnormalities Narrative: Reena Mc is a 69 year old female with last colonoscopy years ago, now with + cologuard Review of Systems Review of Systems: All systems reviewed & are unremarkable except as noted in HPI and below PMFSH Past Medical History Medical History (Updated 02/22/25 @ 08:55 by Jason Salazar DO) Pacemaker Hypertension Dysphagia Hyperlipidemia LDL goal <130 DVT of leg (deep venous thrombosis) Atrial fibrillation Adjustment disorder with anxiety Chronic bilateral low back pain without sciatica Gastro-esophageal reflux disease without esophagitis Major depressive disorder, recurrent, moderate Surgical History Surgical History History of bladder surgery H/O: hysterectomy History of back surgery Family History Family History Mother Diabetes mellitus Hypertension Family history of elevated blood lipids Carcinoma of colon Colon polyp Father Diabetes mellitus Hypertension Family history of elevated blood lipids Social History Social History Social History: the patient is the is the 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 She never smoked. She has 2 children. code status full code Smoking status: Never smoker Second hand tobacco smoke exposure: No Alcohol intake: never Substance use: never Substance use type: does not use Do You Feel Safe in your Home?: Yes Lack of Transportation: No Lack of Food: Never True Current Housing: I Have Housing Concerned About Future Housing: No Difficulty Paying Gas/Electric Bills: No Difficulty Paying for Meds: No Currently Unemployed: No Education: High School Diploma/GED Difficulty w/ Childcare or Family Care: No Living arrangements: with family Spiritual care concerns: No Meds Home Medications and Allergies Home Medications ?Medication ?Instructions ?Recorded ?Confirmed ?Type ergocalciferol (vitamin D2) 1,250 1,250 mcg PO DIRECTED 02/12/22 02/22/25 History mcg (50,000 unit) capsule apixaban 5 mg tablet (Eliquis) 5 mg PO Q12H #180 tabs 08/02/24 02/22/25 Rx loperamide 2 mg capsule 2 mg PO Q6H PRN loose stool #60 08/02/24 02/07/25 Rx caps meclizine 12.5 mg tablet 12.5 mg PO TID PRN dizziness #90 08/02/24 02/07/25 Rx tabs mecobalamin (vitamin B12) 1,000 1,000 mcg sublingual DAILY 08/02/24 02/22/25 History mcg disintegrating tablet,sublingual omeprazole 20 mg capsule,delayed 20 mg PO DAILY #90 caps 08/02/24 02/22/25 Rx release metoprolol succinate 25 mg 25 mg PO DAILY #90 tabs 08/04/24 02/22/25 Rx tablet,extended release 24 hr sertraline 100 mg tablet See Rx Instructions .Route 10/25/24 02/22/25 Rx .COMPLEX #90 tabs sertraline 50 mg tablet 50 mg PO DAILY Anxiety #90 tabs 12/20/24 02/22/25 Rx midodrine 2.5 mg tablet 2.5 mg PO TID 02/07/25 02/22/25 History Allergies Allergy/AdvReac Type Severity Reaction Status Date / Time duloxetine Allergy Unknown Unknown Verified 02/22/25 08:44 latex Allergy Unknown Skin Verified 02/22/25 08:44 Reaction nitrofurantoin Allergy Unknown Skin Verified 02/22/25 08:44 Reaction LATEX TAPE Allergy Unknown BROKE OUT Uncoded 02/22/25 08:44 WITH BLISTERS Vital Signs Vital Signs - 24 hr 02/22/25 08:48 Temperature 96.9 F L Pulse Rate 79 Respiratory Rate 16 Blood Pressure 105/67 Pulse Oximetry 99 Oxygen Delivery Room Air Exam Const: General: comfortable and no acute distress HENMT: Face/Nose/Sinus: Normal nares present Eyes: General: appearance normal, both eyes and all related structures Neck: Neck: no JVD Resp: Auscultation: clear to auscultation bilaterally Cardio: Rate: regular rate Rhythm: regular rhythm GI: Inspection: non-distended GI Palp: Yes Soft to palpation Skin: General skin exam: normal color Neuro: Speech: normal speech Extrem: General: normal to inspection Psych: Mental Status: mental status grossly normal Assessment and Plan Assessment and plan (1) Positive colorectal cancer screening using Cologuard test: Code(s): R19.5 - Other fecal abnormalities Status: Acute Assessment and Plan: colonoscopy
--- NOTE | 2025-02-22 10:09 | S_PTH ---
PATIENT: Reena Mc LOC: [facility]#:[id number] AGE/SX: 69/F ROOM: RE02/22/[address]: Keyur Woods MD : 1955 BED: DIS: 02/22/2025 SPEC #: [id number] RECD: 02/22/25 13:31 STATUS: NEDRA REEsther #: [id number] SUSANA: 02/22/25 10:[address]: Keyur Woods DEPT: [facility] Surgical RECD BY: Clari Nguyen ENTERED: 02/22/25 13:32 SP TYPE: Surgical OTHR DR: Claudia Lamar DO Tissues: A - Colon Polypectomy B - Colon Polypectomy C - Colon Biopsy Procedures: Hematoxylin and Eosin Stain Gross and Microscopic Level 4
[2025-02-22 10:13] VITALS: BP 110/58; PULSE 60; RESP 16; O2SAT 100
[2025-02-22 10:23] VITALS: BP 117/74; PULSE 60; RESP 16; O2SAT 97
[2025-02-22 10:33] VITALS: BP 128/68; PULSE 60; RESP 19; O2SAT 97
== END 2025-02-22 10:40 | disposition home or self-care (01) ==
PROVIDERS: PCP Family Medicine; Referring Provider Family Medicine; Visit Provider Internal Medicine Gastroenterology
PROC: 0DJD8ZZ Inspection of Lower Intestinal Tract, Via Natural or Artificial Opening Endoscopic (ICD-10-PCS; CPT 45378; principal; 2025-02-22 10:00)
DX: D12.2 Benign neoplasm of ascending colon (principal); D12.4 Benign neoplasm of descending colon; K64.8 Other hemorrhoids; K57.30 Diverticulosis of large intestine without perforation or abscess without bleeding; I10 Essential (primary) hypertension; E78.5 Hyperlipidemia, unspecified; F43.22 Adjustment disorder with anxiety; K21.9 Gastro-esophageal reflux disease without esophagitis; F33.1 Major depressive disorder, recurrent, moderate; I48.91 Unspecified atrial fibrillation; G89.29 Other chronic pain; M54.50 Low back pain, unspecified; Z79.01 Long term (current) use of anticoagulants; Z95.0 Presence of cardiac pacemaker; Z98.890 Other specified postprocedural states; Z98.1 Arthrodesis status; Z86.718 Personal history of other venous thrombosis and embolism; Z83.719 Family history of colon polyps, unspecified; Z80.0 Family history of malignant neoplasm of digestive organs
CPT/HCPCS: 45385; 45380; 88305; J2003; J2704; J7120

== ENCOUNTER 2025-03-19 13:28 | Outpatient (CLI) | payer MEDICARE, SELFPAY ==
--- OUTSIDE RECORDS SUMMARY | 2009-10-31 18:00 | XMS_ITS | Continuity of Care Document ---
Author Organization [facility] Address [id number] [place] [address] [address] [place] [address] Phone Care Team Providers Care Idea Worker Name Role Phone Antonio Sam MD Unavailable Unavailable Procedures Procedure Date OFFICE/OUTPATIENT VISIT, [facility] OPHTHALMIC BIOMETRY RT OPHTHALMIC BIOMETRY Advance Directives Directive Yes / No Effective Date File Name No Information Encounters Encounter Description Practice Location Reason(s) For Visit Diagnoses Date Provider Providers Copied on Encounter OFFICE/OUTPAT IENT VISIT, [facility], [id number] [place], [place] [address], [place], [place], [id number], tel:[phone] [facility] [place] No Information 0 Cecy Alvarez. [id number] [place] [address], [address], [place], [place], [id number], [place]. tel:[phone] Family History Family Member Type Diagnosis Age At Onset No Information Payers Payer name Insurance type Covered republican ID Authoriza tion(s) [employer] PPO CI [id number] Social History Type Description Quantity Date Captured Comments Sex Female Smoking Status No Information Chief Complaint And Reason For Visit No Information Reason For Referral Reason For Referral No Information History Of Present Illness Encounter Date Complaint History Of Prese nt Illness No Information Functional Status Date Functional Assessmen t No Information Instructions Date Instruction Additional Infor mation No Information Assessments Type Assessment Date No Information Patient Care Teams Name Effective Dates (start - stop) Status Members No Information
--- NOTE | ~2025-03-19 | US_ITS ---
EXAMINATION: US renal BI DATE: 03/19/2025 14:51 INDICATION: Chronic kidney disease, stage III. Vitamin D deficiency. TECHNIQUE: Multiple ultrasound grayscale images of the kidneys were obtained. COMPARISON: None. FINDINGS: The right kidney measures 9.0 x 4.6 x 4.8 cm. The left kidney measures 9.1 x 5.0 x 4.6 cm. The kidneys demonstrate normal parenchymal echogenicity. There is no hydronephrosis. The bladder is normal. IMPRESSION: 1. Normal kidney sizes. No hydronephrosis. Reviewed, dictated and finalized at location E.
--- OUTSIDE RECORDS SUMMARY | 2025-03-19 13:32 | XMS_ITS | Encounter Summary ---
Author Organization [facility] Healthcare Address [address] [place] [address] Care Team Providers Care Power Chisel Operator Name Role Phone Claudia Lamar DO Primary Care Provider + Mckay Braxton MD Unavailable [phone] Encounter Details Date Type Department Care Team (Late st Contact Info) Description 03/07/2025 Telephone [facility] Medical Group Cardiology [address] [place] [address] Mckay Braxton MD [address] [place] [address] Social History Tobacco Use Types Packs/Day Years Used Date Smoking Tobacco: Never Smokeless Tobacco: Never [facility] Utilities Answer Date Recorded In the past 12 months has [employer] electric, gas, oil, or water [employer] threatened to shut off services in your [...] week 07/24/2024 How often do you attend [facility] or oriental orthodox services? 1 to 4 times per year 07/24/2024 Do you belong to any clubs o r organizations such as hinduism groups, unions, fraternal or athletic groups, or [...] any time in the past 12 m [facility], were you homeless or living in a longterm (including now)? No 07/24/2024 Personal Safety Answer Date Recorded Have you ever been in or are you currently in a harmful physical or emotional relationship or is someone making you feel afraid or unsafe? 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 Please advise, thank you! * Telephone Encounter - Linh Minor - 03/07/2025 3:00 PM CDT Alea with Dr. Lamar office (PCP) states Dr. Lamar wants to know if vegetable loader can start pt on Repatha. Also states she will be faxing lipid results to [employer]. Contact: documented in this encounter Plan of Treatment Not on file documented as of this encounter Visit Diagnoses Not on filedocumented in this encounter Care Teams Power Chisel Operator Relationship Specialty Start Date End Date Claudia Lamar DO PCP - General Family Medicine 02/19/22 Mckay Braxton MD [address] [place] [address] Consulting Physician Cardiology 06/05/24 documented as of this encounter
--- OUTSIDE RECORDS SUMMARY | 2025-03-19 13:32 | XMS_ITS | Clinical Summary ---
Author Organization [facility] Address [address] [place] [address] Care Team Providers Care Underground Mine Superintendent Name Role Phone Dillon Mello MD Primary Care Provider [phone] Ben Mittal MD Unavailable [phone] Kevin Parikh MD Unavailable [phone] Source Comments [facility],non-owned Affiliates and Associated Physician Practices is amultiple site organization consisting of ambulatory clinics and hospital sitesin [place], [place], [place] and [place]. This disclosure is being madepursuant to the Care Everywhere program and may not contain all information available regarding this patient. Last updated 18.[facility] [employer] Allergies Active Allergy Reactions Criticality Noted Date [...] on file Legal Sex Female 1:43 PM IP ATTORNEY Gender Identity Not on file Sexual Orientation Not on file Last Filed Vital Signs Vital Sign Reading Time Taken Comments Blood Pressure 114/62 05/23/2018 9:09 AM IP ATTORNEY Pulse 69 11/04/2017 11:10 AM CDT Temperature 37 C (98.6 F) 11/04/2017 11:10 AM CDT Respiratory Rate 16 11/04/2017 11:10 AM CDT Oxygen Saturation 98% 11/04/2017 11:10 AM CDT Inhaled Oxygen Concentration - - Weight 80.3 kg (177 lb) 05/23/2018 9:09 AM IP ATTORNEY Height 167.6 cm (5' 6) 05/23/2018 9:09 AM IP ATTORNEY Body Mass Index 28.57 05/23/2018 9:09 AM IP ATTORNEY Plan of Treatment Health Maintenance Due Date [...] of 2) 2007 SCREENING FOR DIABETES 09/20/2017 DEPRESSION SCREENING 07/12/2024 MEDICARE AWV CALENDAR YEAR 2024 COVID-19 VACCINE (2023-2 5 season) 2025 INFLUENZA VACCINE (#1) 2025 Respiratory Syncytial Virus [...] this topic Medical Devices Implanted Type Area Edge Bander Operator Device Identifier Shelf Expiration Date Model / Serial / Lot Sys Ureth Supp Obtryx Midurethral Trnstr Implanted:Qty: 1 on 11/03/2017 by Ben Mittal MD at [facility] N/A: Vagina Community Cash Scimed 08/17/2020 [id number] / / [id number] Insurance [place] MEDICARE AETNA MEDICARE ADV SELF PAY NO INSURANCE Member Subscriber Plan / Payer (Ef fective for All Dates) Name:Reena Ardon Member ID:Not on file Relation to Subscriber:Not on file Name:REENA ARDON Subscriber ID:Not on file (Home) Address: [address] [place] [id number] Payer ID:Not on file Group ID:Not on file Type:Self Pay Address: [place], [place] Advance Directives * Full Code (Latest Code Status on File) Date Activated Date Inactivated Comments 11/03/2017 3:52 PM 11/04/2017 1:26 PM * Full Code Date Activated Date Inactivated Comments 11/03/2017 2:42 PM 11/03/2017 3:52 PM Care Teams Underground Mine Superintendent Relationship Specialty Start Date End Date Dillon Mello MD [address] [place] [address] PCP - General Family Medicine 09/20/17 Ben Mittal MD [address] [place] [address] Consulting Physician Obstetrics and Gynecology 09/20/17 Kevin Parikh MD [address] [place] [address] Review Analyst Obstetrics and Gynecology 09/20/17
--- OUTSIDE RECORDS SUMMARY | 2025-03-19 13:32 | XMS_ITS | Clinical Summary ---
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 Dx; PAF. DOI 06/08/2022- Biotronik remote home monitoring. Exertional dyspnea 07/01/2021 Paroxysmal atrial fibrillation 12/19/2020 Encounters Date Type Department Care Team Description 03/08/2025 Documentation [facility] Cardiology [address] [place] [address] [place] [phone] Mckay Braxton MD 03/07/2025 Telephone [facility] Cardiology [address] [place] [address] [place] [phone] Mckay Braxton MD 03/01/2025 8:45 AM CDT Office Visit [facility] Cardiology at [address] [place] [address] Mckay Braxton MD Paroxysmal atrial fibrillation (HCC) (Primary Dx); Status post placement of implantable loop recorder; Sinus node dysfunction (HCC); VT (ventricular tachycardia); Automatic implantable cardiac defibrillator in situ 02/20/2025 8:30 AM CDT Ancillary Procedure [facility] Cardiology [address] [place] [address] [place] [phone] Sinus node dysfunction (HCC) (Primary Dx); Paroxysmal atrial fibrillation (HCC); Automatic implantable cardiac defibrillator in situ; VT (ventricular tachycardia); Cardiomyopathy, idiopathic 01/18/2025 Telephone [facility] Cardiology [address] [place] [address] [place] [phone] Mckay Braxton MD from Last 3 [...] Tobacco: Never Tobacco Cessation:Counseling Given: Not Answered [facility] Utilities Answer Date Recorded In the past 12 months has e [employer], gas, oil, or water [employer] threatened to shut off services in your [...] week 07/24/2024 How often do you attend [facility] or hindu services? 1 to 4 times per year 07/24/2024 Do you belong to any clubs o r organizations such as hindu groups, unions, fraternal or athletic groups, or [...] time in the past [address] [facility], were you homeless or living in a halfway (including now)? No 07/24/2024 Personal Safety Answer Date Recorded Have you ever been in or are you currently in a harmful physical or emotional relationship or is someone making you feel afraid or unsafe? Denies 07/23/2024 Comments No Sex and Gender Information Value Date Recorded Sex Assigned at Not on file Legal Sex Female 3:42 AM ADHESIVE BONDING MACHINE OPERATOR Gender Identity Female 07/29/2021 9:23 AM ADHESIVE BONDING MACHINE OPERATOR Sexual Orientation Not on file Obstetrics History Last Filed Vital Signs Vital Sign Reading Time Taken Comments Blood Pressure 130/88 03/01/2025 8:46 AM CDT Pulse 60 03/01/2025 8:46 AM CDT Temperature 36.7 C (98.1 F) 07/28/2024 7:28 AM ADHESIVE BONDING MACHINE OPERATOR Respiratory Rate 16 07/28/2024 7:28 AM ADHESIVE BONDING MACHINE OPERATOR Oxygen Saturation 94% 03/01/2025 8:46 AM CDT Inhaled Oxygen Concentration - - Weight 82.1 kg (181 lb) 03/01/2025 8:46 AM CDT Height 167.6 cm (5' 6) 03/01/2025 8:46 AM CDT Body Mass Index 29.21 03/01/2025 8:46 AM CDT Plan of Treatment Health Maintenance Due Date Last Done Comments Colon Cancer Screening-Colonoscopy 1955 Depression Screening 1955 Hepatitis C Screening 1955 Osteoporosis Screening-Bone Density Scan 1955 Hepatitis B Screening 1975 Pneumococcal vaccine 65+ (2 of 2 - PPSV23, PCV20, or PCV21) 01/07/2018 11/12/2017 Breast Cancer Screening-Mammogram 10/21/2019 10/20/2018, 10/11/2017, 10/05/2016, Additional history exists Well Visit 65+ 2022 Covid-19 Vaccine (3 - 2024-2 6 season) 2025 05/13/2021, 09/17/2020 Influenza Vaccine (#1) 2025 , 04/01/2022, 03/24/2021, Additional history exists Fall Risk Assessment 07/28/2025 07/28/2024 DTaP/Tdap/Td Vaccine (3 - Td or Tdap) 04/20/2033 04/20/2023, 12/29/2012 Zoster Vaccine Completed 07/06/2020, 03/2020, 03/20/2011 Medical Devices Implanted Type Area Contract Clerk Device Identifier Shelf Expiration Date Model / Serial / Lot Cage Cage N/A: Back Implantable Loop Recorder Implantable Loop Recorder Left: Chest [employer] Durata 6.8fr 65cm True Bipolar Active Fixation Extendable 1 Coil [id number]/65 - [id number] Implanted:Qty : 1 on 06/29/2024 by Abraham Henry MD at [facility] Lead [employer] 03/11/2027 [id number] / / Pin Pin N/A: Back Screw Screw N/A: Back Lonny N/A: Back [employer] Vascade Mvp 6-12fr Venous Closure [id number] - [id number] Implanted:Qty : 1 on 06/19/2024 by Abraham Henry MD at [facility] 02/14/2026 800-612C -10U / / [id number] [employer] Vascade Mvp 6-12fr Venous Closure [id number] - [id number] Implanted:Qty : 1 on 06/19/2024 by Abraham Henry MD at [facility] 02/14/2026 800-612C -10U / / [id number] [employer] Vascade Mvp 6-12fr Venous Closure [id number] - [id number] Implanted:Qty : 1 on 06/19/2024 by Abraham Henry MD at [facility] [employer] 02/14/2026 800-612C -10U / / [id number] [employer] Angio-Seal Vip 6fr Closere Device [id number] - [id number] Implanted:Qty : 1 on 06/28/2024 by Ron Davis MD at [facility] Right: Common Femoral Artery [employer] [id number] / / Lux Vascular Active Fixation Steroid Eluting Latex Free Sterile Right Atrium Ventricle Ultipace 52cm [id number] - [id number] Implanted:Qty : 1 on 06/29/2024 by Abraham Henry MD at [facility] [employer] 05/11/2027 [id number]/ [id number] / / Lux V[employer] Defib Cardiac [id number] Ekron Implantable 2 Chamber [id number] - [id number] - [id number] Implanted:Qty : 1 on 06/29/2024 by Abraham Henry MD at [facility] [employer] [id number] 01/08/2026 [id number] / [id number] / Procedures Procedure Name Priority Date/Time Associated Diagnosis Comments DEVICE CHECK - REMOTE Routine 02/20/2025 1:01 PM CDT Paroxysmal atrial fibrillation (HCC) Automatic implantable cardiac defibrillator in situ VT (ventricular tachycardia) Cardiomyopathy, idiopathic SCREENING MAMMOGRAM BILATERAL W SUMIT 10/20/2018 7:38 AM CDT from Last 3 Months or Most Recently Relevant to Health Maintenance Results * DEVICE CHECK - REMOTE (02/20/2025 1:01 PM CDT) Anatomical Region Laterality Modality Other Narrative 03/16/2025 12:40 PM CDT Lux Ekron Dual ICD. Dx; CM, PM-VT, Sinus Node Dysfunction, Bradycardia, PAF. DOI 06/29/2024-Carl. Secondary Prevention. Routine DDDR ICD Remote. Transmission attached. Battery status 91%, 8.2 years remaining battery life to KIAH. Stable Charge time and Shock impedance. Stable lead impedances, pacing, and sensing threshold. Presenting rhythm: AP/VS AP-95 %, ASPHALT SPREADER OPERATOR-< 1 % (0) AT/AF episodes noted since last scheduled report (0) Ventricular tachy arrhythmias detected. Medication: Eliquis 5 mg, Toprol-XL 25 mg, midodrine 2.5 mg Follow up: Office Pacemaker/ICD scheduled 11/21/25 [place] remote 05/22/25 Sebastián Lopez RN us Mckay Braxton MD [facility] PROC EDURES Final Result * Screening Mammogram Bilateral W Sumit (10/20/2018 7:38 AM CDT) Anatomical Region Laterality Modality Breast Bilateral Mammography 10/20/2018 7:53 AM CDT Narrative 10/20/2018 10:38 AM CDT Patient Name: REENA ARDON Ordering Dr: Pedro Luis Mello MD D.O.B: 1955 Exam Date: 10/20/18737 Age: 63 Sex: Female MR#: [id number] Loc: [facility]#: [id number] RADIOLOGY REPORT Order #[id number] [facility] Rm Bilat Screening 3D Signed - MG [...] mammogram, 10/05/2016 mammogram, and 09/24/2015 mammogram - [facility]. BREAST TISSUE: There are scattered areas of [...] age 40, based on guidelines of the [place] [employer] (ACR Practice Parameter for the Performance of Screening and Diagnostic Mammography) and [place] [employer]nec[employer]. For women with an elevated risk of breast cancer, please refer to the ACR Practice Parameter for specific screening recommendations. The patient will be entered into a reminder system with a target due date of 1 year for her next screening exam. Electronically signed by: Abraham munson/iesha:10/20/2018 10:38:53 Manager Flight: Reva LOZANO(Myrtle)(Vanessa), [facility] letter sent: Normal Exam Reading location: [facility] BI-RADS: 1 Negative REPORT ELECTRONICALLY SIGNED IN OTHER VENDOR SYSTEM Resulting Agency Comment O Procedure Note Abraham Winkler MD - 10/20/2018 Patient Name: REENA ARDON Dr: Pedro Luis Mello MDO.B: 1955 Exam Date: 10/20/18 0738 Age: 63 Sex: Female MR#: [id number] Loc: RADIOLOGY REPORT Order #[id number] [facility] Rm Bilat Screening 3D Signed - MG [...] 10/11/2017 mammogram,10/05/2016 mammogram, and 09/24/2015 mammogram - [facility]. BREAST TISSUE: There are scattered areas of [...] age 40, based on guidelines of the [place] [employer] (ACR Practice Parameter for the Performance of Screening and Diagnostic Mammography) and [place] [employer]nec[employer]. For women with an elevated risk of breast cancer, pleaserefer to the ACR Practice Parameter for specific screening recommendations. The patient will be entered into a reminder system with a target due dateof 1 year for her next screening exam. Electronically signed by: Abraham munson/iesha:10/20/2018 10:38:53 Manager Flight: Reva LOZANO(Myrtle)(Vanessa), [facility] letter sent: Normal Exam Reading location: [facility] BI-RADS: 1 Negative REPORT ELECTRONICALLY SIGNED IN OTHER VENDOR SYSTEM [facility] Chepe Mello MD IMG MAMMO PROCEDURES Final Resul t from Last 3 Months or Most Recently Relevant to Health Maintenance [place] [address] [place] [address] MEDICARE GOLD T MEDICARE GOLD AETNA MEDICARE GOLD Advance Directives For more information, please contact: [phone] Documents on File Type Date Recorded Patient Tennis Net Maker Expl anation Power of Collection Team Lead 06/19/2024 7:34 AM * Full Code (Latest Code Status on File) Date Activated Date Inactivated Comments 07/23/2024 10:33 PM 07/28/2024 5:30 PM * Full Code Date Activated Date Inactivated Comments 06/23/2024 6:51 PM 06/30/2024 6:35 PM * Full Code Date Activated Date Inactivated Comments 06/19/2024 6:36 PM 06/20/2024 5:22 PM Care Teams Collection Agent Relationship Specialty Start Date End Date Claudia Lamar DO PCP - General Family Medicine 02/19/22 Mckay Braxton MD [address] [address] Consulting Physician Cardiology 06/05/24
== END 2025-03-19 13:29 | disposition home or self-care (01) ==
PROVIDERS: PCP Family Medicine; Visit Provider Internal Medicine Nephrology
DX: E55.9 Vitamin D deficiency, unspecified (principal); I95.1 Orthostatic hypotension; N18.31 Chronic kidney disease, stage 3a
CPT/HCPCS: 76770